=== PATIENT | female | born 1935 | race Caucasian/White ===

== ENCOUNTER 2019-08-09 05:02 | Inpatient (IN) | payer MEDICARE, OTHER, SELFPAY ==
[2019-08-09] VITALS (12 sets, daily range): BP systolic 96–163; BP diastolic 42–71; PULSE 75–94; RESP 14–18; TEMP 36.6–37; O2SAT 92–97; BMI 24.7
--- NOTE | 2019-08-09 05:17 | CTR_ITS ---
PROCEDURE INFORMATION: Exam: CT Abdomen And Pelvis With Contrast Exam date and time: 08/09/2019 5:29 AM Age: 84 years old Clinical indication: Abdominal pain; Localized; Patient HX: Lower abd pain. History of crohn's TECHNIQUE: Imaging protocol: Computed tomography of the abdomen and pelvis with intravenous contrast. Total DLP: 608.52 mGy-cm Radiation optimization: All CT scans at this facility use at least one of these dose optimization techniques: automated exposure control; mA and/or kV adjustment per patient size (includes targeted exams where dose is matched to clinical indication); or iterative reconstruction. Contrast material: VISI 320; Contrast volume: 95 ml; Contrast route: 20G RAC; COMPARISON: US gall bladder [id number] 08/31/2018 8:24 AM FINDINGS: Liver: No mass. Gallbladder and bile ducts: Stones noted in the gallbladder. Pancreas: No ductal dilation. Spleen: No splenomegaly. Adrenals: No mass. Kidneys and ureters: No hydronephrosis. Stomach and bowel: Dilated fecalized loops of distal ileum measuring up to 3 cm. There is mild adjacent small bowel edema in the right upper quadrant. There are multiple areas of relatively decreased caliber distal small bowel loops. Findings may represent strictures with possible developing partial small bowel obstruction in the setting of known Crohn's disease. Colonic diverticulosis without findings of diverticulitis. Appendix: The appendix is not identified. Intraperitoneal space: No free air. No significant fluid collection. Vasculature: No abdominal aortic aneurysm. Lymph nodes: No enlarged lymph nodes. Bladder: Unremarkable as visualized. Reproductive: Unremarkable as visualized. Bones/joints: Unremarkable. No acute fracture. Soft tissues: Unremarkable. CT/CT abdomen pelvis w con* [id number] IMPRESSION: 1. Dilated fecalized loops of distal ileum measuring up to 3 cm. There are multiple areas of relatively decreased caliber distal small bowel loops. Findings may represent strictures with possible developing partial small bowel obstruction in the setting of known Crohn's disease. 2. Cholelithiasis. Radiation Dose CTDIVOL = (mGy): DLP = 608.52 (mGy-cm)
--- NOTE | 2019-08-09 05:18 | ECG_ITS ---
Measurements Intervals [place] Rate: 78 P: 78 [place]: 185 QRS: 30 QRSD: 84 T: -15 QT: 384 QTc: 440 SINUS RHYTHM LOW QRS VOLTAGE IN PRECORDIAL LEADS [QRS DEFLECTION < 1.0 mV IN CHEST LEADS] NONSPECIFIC T-WAVE ABNORMALITY Compared to ECG 03/09/2017 04:59:36 Low QRS voltage now present T-wave abnormality now present Myocardial infarct finding no longer present Electronically Signed On 08-09-2019 10:17:36 CDT by Octavia Taylor M.D. [email or web address]
--- NOTE | 2019-08-09 05:19 | ED_ITS ---
Documented by User: Hesham Kiran MD 08/09/19 18:36 HPI - Abdominal Pain General: Chief Complaint: Abdominal Pain Stated Complaint: abd pain/n Time Seen by Provider: 08/09/19 05:13 Source: patient Mode of arrival: ambulatory Limitations: no limitations History of Present Illness: HPI narrative: 84-year-old female states she woke up after 3 hours ago with epigastric abdominal pain along with vomiting. She states that she took a Tums and pain is improved since then and pain is currently a 2 out of 10. She stated its worst was an 8 out of 10. She denies any radiation of her pain. MD elicited complaint: abdominal pain Onset (ago): hour(s) Location: Epigastric Severity: moderate Quality: sharp Radiation: none Exacerbating factors: nothing Relieving factors: nothing Associated Symptoms: Reports nausea and vomiting; Denies chills, diarrhea, dysuria and fever(s) Review of Systems Const: Denies: fever, chills, body aches or change in appetite Eyes: Denies: blurry vision or eye discomfort ENMT: Denies: throat pain or dental pain Card: Denies: chest pain Resp: Denies: shortness of breath GI: Reports: abdominal pain, nausea and vomiting; Denies: diarrhea : Denies: painful urination Musc: Denies: neck pain or back pain Skin/Breast: Denies: rash Neuro: Denies: headache Psych: Denies: depression Zeke/Lymph: Denies: easy bruising All/Imm: Denies: hives PFSH ED PFSH: Surgical History History of appendectomy Social History Smoking and tobacco status: former smoker Physical Exam Const: COMMON NORMALS: no apparent distress, oriented x3 and healthy appearing HENMT: COMMON NORMALS: normocephalic and head/scalp atraumatic HEAD & SCALP: normocephalic and atraumatic Eye: COMMON NORMALS: PERRL and EOMs intact bilaterally PUPIL: Yes PERRL Neck/C-Spine: COMMON NORMALS: full ROM and supple Chest: COMMONS NORMALS: inspection of chest normal and palpation of chest normal Resp: COMMON NORMALS: normal respiratory effort, no retractions, no use of accessory muscles and clear to auscultation bilaterally AUSCULTATION: clear to auscultation bilaterally Cardio: COMMON NORMALS: regular rate, regular rhythm and no murmurs RATE: regular rate RHYTHM: regular rhythm GI: COMMON NORMALS: normal to inspection, nondistended, normoactive bowel sounds, soft to palpation, non-tender and no masses PALPATION: Yes soft Extremity: COMMON NORMALS: normal to inspection and full ROM Neuro: COMMON NORMALS: oriented x3, moves all extremities and no focal motor deficits Psych: COMMON NORMALS: mental status grossly normal, thought process normal and cooperative THOUGHT PROCESS: normal thought process Skin: COMMON NORMALS: no rashes or lesions noted and no wounds GENERAL SKIN EXAM: no rashes or lesions noted Course Vital Signs: Vital signs: Vital Signs Temperature 98.1 F 08/09/19 15:29 Pulse Rate 85 08/09/19 15:29 Respiratory Rate 16 08/09/19 15:29 Blood Pressure 103/58 08/09/19 15:29 Pulse Oximetry 92 08/09/19 15:29 MDM - Abdominal Pain MDM Narrative: Medical decision making narrative: Patient presents with abdominal pain along with nausea and vomiting. Her symptoms are improving. Patient is pending CT scan of her abdomen along with lab work. Exam at arrival is benign. Patient's care turned over to Dr. Aleman. Lab Data: Labs: Lab Results 08/09/19 08/09/19 08/09/19 Range/Units 05:38 05:38 05:38 WBC 12.8 H (4.0-10.0) 10^3/ uL RBC 3.77 L (4.1-5.3) 10^6/u L Hgb 12.1 (11.5-15.3) g/dL Hct 38.9 (37.0-47.0) % MCV 103.2 H (81-99) fL MCH 32.1 (28.0-34.0) pg MCHC 31.1 (30.0-36.0) g/dL RDW 14.6 (12.1-15.1) % Plt Count 267 (130-400) 10^3/c mm MPV 9.5 (7.4-10.4) fL Neut % (Auto) 92.1 % Lymph % (Auto) 3.8 % [place] % (Auto) 3.1 % Eos % (Auto) 0.3 % Baso % (Auto) 0.2 % Neut # (Auto) 11.8 H (1.8-7.7) 10^3/u L Lymph # (Auto) 0.5 L (0.8-4.8) 10^3/u L [place] # (Auto) 0.4 (0.2-0.9) 10^3/u L Eos # (Auto) 0.0 (0.0-0.8) 10^3/u L Baso # (Auto) 0.0 (0.0-0.1) 10^3/u L Nucleated RBC % (a uto) 0 % Nucleated RBCs # 0.0 /100WBC Sodium 138 (136-145) mmol/L Potassium 3.8 (3.5-5.1) mmol/L Chloride 100 (98-107) mmol/L Carbon Dioxide 24 (22-29) mmol/L Anion Gap 17.8 (5-19) BUN 25 H (8-23) mg/dL Creatinine 1.0 H (0.5-0.9) mg/dL Glucose 118 H (65-115) mg/dL Calculated Osmolal ity 284 L (285-295) mOsm/k g Lactate (0.5-2.2) mmol/L Calcium 11.0 H (8.5-10.5) mg/dL Total Bilirubin 0.4 (0.15-1.2) mg/dL AST 21 (0-32) U/L ALT 7 (0-33) U/L Alkaline Phosphata se 72 (35-105) IU/L Total Protein 7.0 (6.6-8.7) g/dL Albumin 4.3 (3.5-5.2) g/dL Globulin 2.7 (1.3-4.6) g/dL Lipase 42 (13-60) U/L TSH 7.93 H (0.27-4.20) uIU/ mL 08/09/19 Range/Units 07:10 WBC (4.0-10.0) 10^3/ uL RBC (4.1-5.3) 10^6/u L Hgb (11.5-15.3) g/dL Hct (37.0-47.0) % MCV (81-99) fL MCH (28.0-34.0) pg MCHC (30.0-36.0) g/dL RDW (12.1-15.1) % Plt Count (130-400) 10^3/c mm MPV (7.4-10.4) fL Neut % (Auto) % Lymph % (Auto) % [place] % (Auto) % Eos % (Auto) % Baso % (Auto) % Neut # (Auto) (1.8-7.7) 10^3/u L Lymph # (Auto) (0.8-4.8) 10^3/u L [place] # (Auto) (0.2-0.9) 10^3/u L Eos # (Auto) (0.0-0.8) 10^3/u L Baso # (Auto) (0.0-0.1) 10^3/u L Nucleated RBC % (a uto) % Nucleated RBCs # /100WBC Sodium (136-145) mmol/L Potassium (3.5-5.1) mmol/L Chloride (98-107) mmol/L Carbon Dioxide (22-29) mmol/L Anion Gap (5-19) BUN (8-23) mg/dL Creatinine (0.5-0.9) mg/dL Glucose (65-115) mg/dL Calculated Osmolal ity (285-295) mOsm/k g Lactate 2.4 H (0.5-2.2) mmol/L Calcium (8.5-10.5) mg/dL Total Bilirubin (0.15-1.2) mg/dL AST (0-32) U/L ALT (0-33) U/L Alkaline Phosphata se (35-105) IU/L Total Protein (6.6-8.7) g/dL Albumin (3.5-5.2) g/dL Globulin (1.3-4.6) g/dL Lipase (13-60) U/L TSH (0.27-4.20) uIU/ mL Discharge Plan Discharge Patient Disposition: Placed in Observation Admit Provider: Abhi Angelo Clinical Impression: Small bowel obstruction, Abdominal pain, Constipation, Crohn's disease Condition: Stable Referrals: Michael Stoddard Jr, MD [Primary Care Provider] - Discharge Date/Time: 08/09/19 08:24 Coding Level of Care Code ED Electrical And Radio Mechanic for Chg Fwd Exam Comprehensive Documented by User: Art Aleman DO 08/09/19 08:00 HPI - Abdominal Pain General: Chief Complaint: Abdominal Pain Stated Complaint: abd pain/n Time Seen by Provider: 08/09/19 05:13 PFSH ED PFSH: Surgical History History of appendectomy Social History Smoking and tobacco status: former smoker Course Vital Signs: Vital signs: Vital Signs Temperature 98.1 F 08/09/19 15:29 Pulse Rate 85 08/09/19 15:29 Respiratory Rate 16 08/09/19 15:29 Blood Pressure 103/58 08/09/19 15:29 Pulse Oximetry 92 08/09/19 15:29 MDM - Abdominal Pain MDM Narrative: Medical decision making narrative: Care assumed from Dr. Kiran at change of shift. CT shows fecal is of the terminal ileum and a question of early small bowel obstruction possibly due to Crohn's constrictions. Patient does not have an acute abdomen on exam no peritoneal signs we will go ahead and put her on observation. Attempt to relieve constipation observe closely for signs of advancing bowel disease keep and keep on clear liquids and IV fluids discussed with Dr. Thomason he will admit. Lab Data: Labs: Lab Results 08/09/19 08/09/19 08/09/19 Range/Units 05:38 05:38 05:38 WBC 12.8 H (4.0-10.0) 10^3/ uL RBC 3.77 L (4.1-5.3) 10^6/u L Hgb 12.1 (11.5-15.3) g/dL Hct 38.9 (37.0-47.0) % MCV 103.2 H (81-99) fL MCH 32.1 (28.0-34.0) pg MCHC 31.1 (30.0-36.0) g/dL RDW 14.6 (12.1-15.1) % Plt Count 267 (130-400) 10^3/c mm MPV 9.5 (7.4-10.4) fL Neut % (Auto) 92.1 % Lymph % (Auto) 3.8 % [place] % (Auto) 3.1 % Eos % (Auto) 0.3 % Baso % (Auto) 0.2 % Neut # (Auto) 11.8 H (1.8-7.7) 10^3/u L Lymph # (Auto) 0.5 L (0.8-4.8) 10^3/u L [place] # (Auto) 0.4 (0.2-0.9) 10^3/u L Eos # (Auto) 0.0 (0.0-0.8) 10^3/u L Baso # (Auto) 0.0 (0.0-0.1) 10^3/u L Nucleated RBC % (a uto) 0 % Nucleated RBCs # 0.0 /100WBC Sodium 138 (136-145) mmol/L Potassium 3.8 (3.5-5.1) mmol/L Chloride 100 (98-107) mmol/L Carbon Dioxide 24 (22-29) mmol/L Anion Gap 17.8 (5-19) BUN 25 H (8-23) mg/dL Creatinine 1.0 H (0.5-0.9) mg/dL Glucose 118 H (65-115) mg/dL Calculated Osmolal ity 284 L (285-295) mOsm/k g Lactate (0.5-2.2) mmol/L Calcium 11.0 H (8.5-10.5) mg/dL Total Bilirubin 0.4 (0.15-1.2) mg/dL AST 21 (0-32) U/L ALT 7 (0-33) U/L Alkaline Phosphata se 72 (35-105) IU/L Total Protein 7.0 (6.6-8.7) g/dL Albumin 4.3 (3.5-5.2) g/dL Globulin 2.7 (1.3-4.6) g/dL Lipase 42 (13-60) U/L TSH 7.93 H (0.27-4.20) uIU/ mL 08/09/19 Range/Units 07:10 WBC (4.0-10.0) 10^3/ uL RBC (4.1-5.3) 10^6/u L Hgb (11.5-15.3) g/dL Hct (37.0-47.0) % MCV (81-99) fL MCH (28.0-34.0) pg MCHC (30.0-36.0) g/dL RDW (12.1-15.1) % Plt Count (130-400) 10^3/c mm MPV (7.4-10.4) fL Neut % (Auto) % Lymph % (Auto) % [place] % (Auto) % Eos % (Auto) % Baso % (Auto) % Neut # (Auto) (1.8-7.7) 10^3/u L Lymph # (Auto) (0.8-4.8) 10^3/u L [place] # (Auto) (0.2-0.9) 10^3/u L Eos # (Auto) (0.0-0.8) 10^3/u L Baso # (Auto) (0.0-0.1) 10^3/u L Nucleated RBC % (a uto) % Nucleated RBCs # /100WBC Sodium (136-145) mmol/L Potassium (3.5-5.1) mmol/L Chloride (98-107) mmol/L Carbon Dioxide (22-29) mmol/L Anion Gap (5-19) BUN (8-23) mg/dL Creatinine (0.5-0.9) mg/dL Glucose (65-115) mg/dL Calculated Osmolal ity (285-295) mOsm/k g Lactate 2.4 H (0.5-2.2) mmol/L Calcium (8.5-10.5) mg/dL Total Bilirubin (0.15-1.2) mg/dL AST (0-32) U/L ALT (0-33) U/L Alkaline Phosphata se (35-105) IU/L Total Protein (6.6-8.7) g/dL Albumin (3.5-5.2) g/dL Globulin (1.3-4.6) g/dL Lipase (13-60) U/L TSH (0.27-4.20) uIU/ mL Discharge Plan Discharge Patient Disposition: Placed in Observation Admit Provider: Abhi Angelo Clinical Impression: Small bowel obstruction, Abdominal pain, Constipation, Crohn's disease Condition: Stable Referrals: Michael Stoddard Jr, MD [Primary Care Provider] - Discharge Date/Time: 08/09/19 08:24 Coding Level of Care Code ED Electrical And Radio Mechanic for Chg Fwd Exam Comprehensive
[2019-08-09] MEDS: sodium chloride 0.9% 1,000 ML 999 ML IV (05:39)
[2019-08-09] MEDS: morphine 4 mg/mL SDV 1 mL IVP (05:40)
[2019-08-09] MEDS: ondansetron 2 mg/ML SDV 2 mL 4 MG IVP (05:41)
[2019-08-09 05:44] LABS: Basophils % 0.2 %; Eosinophils % 0.3 %; Hematocrit 38.9 % (37.0-47.0); Hemoglobin 12.1 g/dL (11.5-15.3); Lymphocytes # 0.5 10^3/uL (0.8-4.8); Lymphocytes % 3.8 %; Mean Corpuscular HGB Conc 31.1 g/dL (30.0-36.0); Mean Corpuscular Hemoglobin 32.1 pg (28.0-34.0); Mean Corpuscular Volume 103.2 fL (81-99); Mean Platelet Volume 9.5 fL (7.4-10.4); Monocytes # 0.4 10^3/uL (0.2-0.9); Monocytes % 3.1 %; Neutrophils # 11.8 10^3/uL (1.8-7.7); Neutrophils % 92.1 %; Nucleated Red Blood Cells % 0 %; Platelet Count 267 10^3/cmm (130-400); Red Blood Count 3.77 10^6/uL (4.1-5.3); Red Cell Distribution Width 14.6 % (12.1-15.1); White Blood Count 12.8 10^3/uL (4.0-10.0)
--- NOTE | 2019-08-09 05:46 | PC.NURSE ---
Patient states she woke up at 0200 tonight with centrally located abdominal pain located around the umbilicus. Patient states she took an antacid at home but that she vomited it up. Patient states she has felt nauseated since she woke up.
[2019-08-09 06:03] LABS: Alanine Aminotransferase 7 U/L (0-33); Albumin Level 4.3 g/dL (3.5-5.2); Alkaline Phosphatase 72 IU/L (35-105); Anion Gap 17.8 (5-19); Aspartate Amino Transferase 21 U/L (0-32); Blood Urea Nitrogen 25 mg/dL (8-23); Carbon Dioxide 24 mmol/L (22-29); Chloride 100 mmol/L (98-107); Globulin 2.7 g/dL (1.3-4.6); Glucose 118 mg/dL (65-115); Lipase 42 U/L (13-60); Osmolality Calculated 284 mOsm/kg (285-295); Potassium 3.8 mmol/L (3.5-5.1); Sodium 138 mmol/L (136-145); Total Bilirubin 0.4 mg/dL (0.15-1.2)
--- NOTE | 2019-08-09 06:11 | PC.NURSE ---
patient placed on 2 liters O2 to maintain 91 oxygenation on pulse ox.
[2019-08-09] MEDS: iodixanol 320 mg/mL 100mL Btl IV (06:37)
[2019-08-09 07:35] LABS: Lactate (Lactic Acid level) 2.4 mmol/L (0.5-2.2)
[2019-08-09] MEDS: D5-NS 0.45% + KCL 20 mEq 20 MEQ/1,000 ML BAG 75 MEQ IV ×2 (09:31→21:45)
--- NOTE | 2019-08-09 09:47 | PC.CHAP ---
Pastoral Care Encounter/Spiritual Assessment Type of Contact [] Declined patient svcs mgr visit [] Patient/Family/Request visit [] Outpatient visit [] Follow-up visit [] Physician referral [] Code/Alert [x] Routine visit [] Staff referral [] Actively dying [] Patient sleeping [] Family support [] [] Out of room [] Palliative care [] [] Receiving care in room [] Pre-surgical visit [] Trauma [] Long length of stay [] ICU visit [] Other: Relational/Emotional Strength [x] Patient feels connected with others/family/visitors/staff [] Distress [] Loneliness/isolation [] Abandonment Spirituality of Patient [x] Person of Shaunna [x] Attends Yazidi of their [place]un[place] [x] Believes in Prayer [x] Reads Bible or Shinto materials [] There are Spiritual issues to be addressed Irrigation Equipment Remover Interventions [x] Prayer [x] Active listening [x] Non-anxious presence [x] Spiritual/emotional support [] Crisis/trauma care [x] Spiritual counseling [] Bereavement support [] Provided bereavement packet [] Provided Bible/devotional materials [] Provided toy/stuffed animal, coloring book to patient or family member [] Provided Communion [] Anointing/[place] [] Salvation [] Completed spiritual assessment [] Other: Impact on Illness or Injury [] Angry [] Fearful [] Anxious [] Often cries [] Exhaustion [] Unable to work [] Unable to attend druze [] Unable to walk/stand [] Unable to read [] Unable to drive [] Unable to eat/drink [] Unable to sleep [] Unable to be with family [] Patient intubated [x] Other: n/a Summary Time spent with patient 10 minutes
--- NOTE | 2019-08-09 09:56 | PM.HP ---
Providers/Chief Complaint Admitting Physician: Abhi Angelo Primary Care Provider: Michael Stoddard Jr, MD Chief Complaint: OBSTIPATION History of Present Illness Letitia Singh is a 84 year old female with past medical history of Crohn's disease, and arthritis who presented to emergency room with complaints of abdominal pain and 2 episodes of vomiting. The pain started last night. Moderate in intensity, crampy, constant. She had a 1 bowel movement after the onset of the pain and felt a little better. She vomited twice. Mostly fluids. She also took Tums tablet which was in the emesis as well when she vomited. Currently she feels better. She denies any similar episodes in the past. Her Crohn's disease is well controlled. She denies any blood in the stool or black stools. She occasionally has diarrhea. She does not take any specific treatments for the Crohn's disease according to her. She has history of appendectomy in the past. She did not have any surgeries for Crohn's disease. CT of the abdomen in the emergency room revealed constipation and possible partial small bowel obstruction. The radiologist also described possible strictures which could be secondary to complications of Crohn's disease. The patient denies fevers or chills. The patient denies history of diabetes, heart disease. The patient denies any current tobacco alcohol and substance abuse. The patient reports hydrochlorothiazide allergy. Family history is noncontributory. Review of Systems General: Reports: 10 or more systems reviewed and unremarkable except in HPI and below Medications/Allergies Allergies Allergy/AdvReac Type Severity Reaction Status Date / Time hydrochlorothiazide Allergy Unknown Verified 08/09/19 05:19 Additional Medication Information Additional Medication Information: Please see home medication list when it is complete. The patient does not remember the names of her medications. We will need to obtain the list. PFSH Acute PFSH: Surgical History History of appendectomy Social History Smoking and tobacco status: former smoker Female Reproductive History: : 1 Vitals/I&O/Wt Last Vital Signs Temp 98.2 F 08/09/19 08:30 Pulse 83 08/09/19 08:30 Resp 16 08/09/19 08:48 BP 129/69 08/09/19 08:30 Pulse Ox 92 08/09/19 08:30 08/08/19 08/09/19 08/09/19 22:59 06:59 14:59 Intake Total 1000 / 1000 Balance 1000 / 1000 Weight last 48 hrs Weight 61.235 kg Data : 08/09/19 05:38 08/09/19 05:38 Other Labs: Laboratory Results WBC 12.8 10^3/uL (4.0-10.0) H 08/09/19 05:38 RBC 3.77 10^6/uL (4.1-5.3) L 08/09/19 05:38 Hgb 12.1 g/dL (11.5-15.3) 08/09/19 05:38 Hct 38.9 % (37.0-47.0) 08/09/19 05:38 MCV 103.2 fL (81-99) H 08/09/19 05:38 MCH 32.1 pg (28.0-34.0) 08/09/19 05:38 MCHC 31.1 g/dL (30.0-36.0) 08/09/19 05:38 RDW 14.6 % (12.1-15.1) 08/09/19 05:38 Plt Count 267 10^3/cmm (130-400) 08/09/19 05:38 MPV 9.5 fL (7.4-10.4) 08/09/19 05:38 Neut % (Auto) 92.1 % 08/09/19 05:38 Lymph % (Auto) 3.8 % 08/09/19 05:38 [place] % (Auto) 3.1 % 08/09/19 05:38 Eos % (Auto) 0.3 % 08/09/19 05:38 Baso % (Auto) 0.2 % 08/09/19 05:38 Neut # (Auto) 11.8 10^3/uL (1.8-7.7) H 08/09/19 05:38 Lymph # (Auto) 0.5 10^3/uL (0.8-4.8) L 08/09/19 05:38 [place] # (Auto) 0.4 10^3/uL (0.2-0.9) 08/09/19 05:38 Eos # (Auto) 0.0 10^3/uL (0.0-0.8) 08/09/19 05:38 Baso # (Auto) 0.0 10^3/uL (0.0-0.1) 08/09/19 05:38 Nucleated RBC % (auto) 0 % 08/09/19 05:38 Nucleated RBCs # 0.0 /100WBC 08/09/19 05:38 Sodium 138 mmol/L (136-145) 08/09/19 05:38 Potassium 3.8 mmol/L (3.5-5.1) 08/09/19 05:38 Chloride 100 mmol/L (98-107) 08/09/19 05:38 Carbon Dioxide 24 mmol/L (22-29) 08/09/19 05:38 Anion Gap 17.8 (5-19) 08/09/19 05:38 BUN 25 mg/dL (8-23) H 08/09/19 05:38 Creatinine 1.0 mg/dL (0.5-0.9) H 08/09/19 05:38 Glucose 118 mg/dL (65-115) H 08/09/19 05:38 Calculated Osmolality 284 mOsm/kg (285-295) L 08/09/19 05:38 Lactate 2.4 mmol/L (0.5-2.2) H 08/09/19 07:10 Calcium 11.0 mg/dL (8.5-10.5) H 08/09/19 05:38 Total Bilirubin 0.4 mg/dL (0.15-1.2) 08/09/19 05:38 AST 21 U/L (0-32) 08/09/19 05:38 ALT 7 U/L (0-33) 08/09/19 05:38 Alkaline Phosphatase 72 IU/L (35-105) 08/09/19 05:38 Total Protein 7.0 g/dL (6.6-8.7) 08/09/19 05:38 Albumin 4.3 g/dL (3.5-5.2) 08/09/19 05:38 Globulin 2.7 g/dL (1.3-4.6) 08/09/19 05:38 Lipase 42 U/L (13-60) 08/09/19 05:38 Impressions Abdomen/Pelvis CT 08/09/19 05:17 IMPRESSION: 1. Dilated fecalized loops of distal ileum measuring up to 3 cm. There are multiple areas of relatively decreased caliber distal small bowel loops. Findings may represent strictures with possible developing partial small bowel obstruction in the setting of known Crohn's disease. 2. Cholelithiasis. Radiation Dose CTDIVOL = (mGy): DLP = 608.52 (mGy-cm) EKG 1: I personally reviewed and interpreted this EKG as follows: My Interpretation: Nonspecific T wave abnormalities. Sinus rhythm. No acute ischemic changes. A&P Additional A&P Information Possible partial small bowel obstruction probably secondary to intestinal strictures secondary to previous history of Crohn's disease. She will be on clear liquid diet. She will receive IV fluids and pain medications as needed. We will also use Zofran and Reglan for nausea. Will encourage ambulation. Will monitor and replace her electrolytes. I expect that her condition will improve soon. However if there is no significant improvement will consider surgical consultation. Mild acute kidney injury secondary to dehydration secondary to #1. We will hydrate her and monitor her renal function. Will consider additional testing if her renal function worsens. Hypercalcemia. This could be secondary to dehydration. I will need also review her medication list to rule out medication induced hypercalcemia. Mild elevation of white blood cells. There is no evidence of infection at this time. This could be stress-induced or dehydration induced elevation of white blood cells. Will recheck CBC in the morning. DVT prophylaxis. Lovenox. CODE STATUS. The patient wants to be full code. Plan of care was discussed with the patient. She verbalized understanding and agreement. Attestations Medical Necessity Statement*: Observation Coding Level of Care Code Acute Linking Machine Operator for Familia Mcdonald
[2019-08-09 10:31] LABS: Thyroid Stimulating Hormone 7.93 uIU/mL (0.27-4.20)
[2019-08-09] MEDS: enoxaparin 40 mg/0.4 mL Syringe SUBCUT (10:39)
[2019-08-09] MEDS: docusate sodium 100 mg Capsule PO (17:40)
[2019-08-10] VITALS: BP 128/64; PULSE 64; RESP 18; TEMP 36.6; O2SAT 95
[2019-08-10 04:00] VITALS: BP 124/78; PULSE 74; RESP 18; TEMP 36.8; O2SAT 95
[2019-08-10 05:26] LABS: Basophils % 0.2 %; Eosinophils # 0.1 10^3/uL (0.0-0.8); Eosinophils % 1.4 %; Hematocrit 31.9 % (37.0-47.0); Hemoglobin 9.8 g/dL (11.5-15.3); Lymphocytes # 0.7 10^3/uL (0.8-4.8); Mean Corpuscular HGB Conc 30.7 g/dL (30.0-36.0); Mean Corpuscular Hemoglobin 32.2 pg (28.0-34.0); Mean Corpuscular Volume 104.9 fL (81-99); Mean Platelet Volume 9.7 fL (7.4-10.4); Monocytes # 0.4 10^3/uL (0.2-0.9); Monocytes % 7.1 %; Neutrophils % 79.8 %; Nucleated Red Blood Cells % 0 %; Platelet Count 200 10^3/cmm (130-400); Red Blood Count 3.04 10^6/uL (4.1-5.3); Red Cell Distribution Width 14.6 % (12.1-15.1); White Blood Count 6.2 10^3/uL (4.0-10.0)
[2019-08-10 06:05] LABS: Alanine Aminotransferase < 5 U/L (0-33); Albumin Level 3.2 g/dL (3.5-5.2); Alkaline Phosphatase 59 IU/L (35-105); Anion Gap 12.4 (5-19); Aspartate Amino Transferase 13 U/L (0-32); Blood Urea Nitrogen 12 mg/dL (8-23); Calcium 8.8 mg/dL (8.5-10.5); Carbon Dioxide 25 mmol/L (22-29); Chloride 106 mmol/L (98-107); Globulin 2.2 g/dL (1.3-4.6); Glucose 108 mg/dL (65-115); Osmolality Calculated 285 mOsm/kg (285-295); Potassium 4.4 mmol/L (3.5-5.1); Sodium 139 mmol/L (136-145); Total Bilirubin 0.3 mg/dL (0.15-1.2); Total Protein 5.4 g/dL (6.6-8.7)
[2019-08-10 06:06] LABS: Magnesium 1.9 mg/dL (1.7-2.3); Phosphorus 2.7 mg/dL (2.5-4.5)
[2019-08-10 07:43] VITALS: BP 124/57; PULSE 71; RESP 18; TEMP 36.9; O2SAT 93
[2019-08-10] MEDS: enoxaparin 40 mg/0.4 mL Syringe SUBCUT (09:34)
[2019-08-10] MEDS: docusate sodium 100 mg Capsule PO ×2 (09:35→17:09)
--- NOTE | 2019-08-10 09:46 | PC.CHAP ---
Pastoral Care Encounter/Spiritual Assessment Type of Contact [] Declined employer relations representative visit [] Patient/Family/Request visit [] Outpatient visit [] Follow-up visit [] Physician referral [] Code/Alert [x] Routine visit [] Staff referral [] Actively dying [] Patient sleeping [] Family support [] [] Out of room [] Palliative care [] [] Receiving care in room [] Pre-surgical visit [] Trauma [] Long length of stay [] ICU visit [] Other: Relational/Emotional Strength [] Patient feels connected with others/family/visitors/staff [] Distress [] Loneliness/isolation [] Abandonment Spirituality of Patient [] Person of Shaunna [] Attends Hoahaoism of their [place] [x] Believes in Prayer [] Reads Bible or Mosque materials [] There are Spiritual issues to be addressed Sap Integration Architect Interventions [x] Prayer [] Active listening [] Non-anxious presence [] Spiritual/emotional support [] Crisis/trauma care [] Spiritual counseling [] Bereavement support [] Provided bereavement packet [] Provided Bible/devotional materials [] Provided toy/stuffed animal, coloring book to patient or family member [] Provided Communion [] Anointing/[place] [] Salvation [x] Completed spiritual assessment [] Other: Impact on Illness or Injury [] Angry [] Fearful [] Anxious [] Often cries [] Exhaustion [] Unable to work [] Unable to attend orthodox [] Unable to walk/stand [] Unable to read [] Unable to drive [] Unable to eat/drink [] Unable to sleep [] Unable to be with family [] Patient intubated [] Other: Summary Patient trying to rest. Suffers from crohn's disease, but hasnt had blockage before. Patient received some relief this morning. Time spent with patient 15 min
[2019-08-10 11:28] VITALS: BP 145/60; PULSE 69; RESP 18; TEMP 37; O2SAT 94
[2019-08-10] MEDS: D5-NS 0.45% + KCL 20 mEq 20 MEQ/1,000 ML BAG 75 MEQ IV (12:01)
[2019-08-10] MEDS: acetaminophen 325 mg Tablet 650 MG PO (14:23)
[2019-08-10 15:51] VITALS: BP 152/79; PULSE 62; RESP 16; TEMP 36.8; O2SAT 94
--- NOTE | 2019-08-10 17:24 | P.PN_ITS ---
Subjective Subjective: Interval history: The patient reports feeling a little better. She was able to tolerate clear liquid diet. There was no bowel movement. Abdominal pain and distention are still present. No fever or chills. She denies any chest pain, shortness of breath, cough, palpitations. Vitals/I&O/Wt Last Vital Signs Temp 98.3 F 08/10/19 15:51 Pulse 62 08/10/19 15:51 Resp 16 08/10/19 15:51 BP 152/79 08/10/19 15:51 Pulse Ox 94 08/10/19 15:51 08/10/19 08/10/19 08/10/19 06:59 14:59 22:59 Intake Total 1480 / 1480 240 / 1720 Output Total 350 / 350 Balance -350 / 807.5 1480 / 1480 240 / 1720 Weight last 48 hrs Weight 61.235 kg Physical Exam Narrative: EXAM NARRATIVE: The patient is awake alert and oriented. No acute distress. Mood and affect are appropriate. Skin warm and dry. Moist mucous membranes. Eyes PERRLA, extra muscle intact. Neck supple, no JVD Lungs clear bilaterally. No respiratory distress Heart S1, S2, regular Abdomen soft, distended, nontender, bowel sounds are present Extremities trace edema no cyanosis no calf tenderness bilaterally Neuro examination is nonfocal. Data : 08/10/19 05:05 08/10/19 05:05 A&P Additional A&P Information Partial small bowel obstruction probably secondary to intestinal strictures secondary to previous history of Crohn's disease. Probably improving. Advance the diet as tolerated. Continue IV fluids and pain medications as needed. We will also use Zofran and Reglan for nausea. Will continue encouraging ambulation. Will monitor and replace her electrolytes. I hope we will be able to discharge her tomorrow. She will need to continue follow-up with her outpatient GI specialist. I reminded her and her daughter how important it is to have follow-up checkups including colonoscopies which she did not have for long time. She verbalized understanding and agreement. Mild acute kidney injury secondary to dehydration secondary to #1. We will hydrate her and monitor her renal function. Will consider additional testing if her renal function worsens. Hypercalcemia. This could be secondary to dehydration. Resolved. Continue m onitoring. Mild elevation of white blood cells. Resolved. Anemia. Hemodynamically she is stable. Drop of hemoglobin probably related to hydration. DVT prophylaxis. Lovenox. CODE STATUS. The patient wants to be full code. Plan of care was discussed with the patient as well as with her daughter over the phone. They verbalized understanding and agreement. Attestations Medical Necessity Statement*: The patient will require another night in the hospital. She meets criteria for inpatient hospitalization. Coding Level of Care Code Acute Disability Insurance Claim Examiner for Familia Mcdonald
[2019-08-10 20:00] VITALS: BP 124/76; PULSE 65; RESP 18; TEMP 36.7; O2SAT 94
[2019-08-11] VITALS: BP 124/76; PULSE 68; RESP 18; TEMP 36.8; O2SAT 96
[2019-08-11] MEDS: D5-NS 0.45% + KCL 20 mEq 20 MEQ/1,000 ML BAG 75 MEQ IV (00:42)
[2019-08-11 04:00] VITALS: BP 133/63; PULSE 61; RESP 18; TEMP 36.8; O2SAT 95
[2019-08-11 05:40] LABS: Basophils % 0.2 %; Eosinophils # 0.3 10^3/uL (0.0-0.8); Hematocrit 34.5 % (37.0-47.0); Hemoglobin 10.3 g/dL (11.5-15.3); Lymphocytes # 0.6 10^3/uL (0.8-4.8); Lymphocytes % 11.5 %; Mean Corpuscular HGB Conc 29.9 g/dL (30.0-36.0); Mean Corpuscular Hemoglobin 31.3 pg (28.0-34.0); Mean Corpuscular Volume 104.9 fL (81-99); Mean Platelet Volume 9.6 fL (7.4-10.4); Monocytes # 0.4 10^3/uL (0.2-0.9); Monocytes % 7.6 %; Neutrophils # 3.6 10^3/uL (1.8-7.7); Neutrophils % 74.1 %; Nucleated Red Blood Cells % 0 %; Platelet Count 225 10^3/cmm (130-400); Red Blood Count 3.29 10^6/uL (4.1-5.3); Red Cell Distribution Width 14.3 % (12.1-15.1); White Blood Count 4.9 10^3/uL (4.0-10.0)
[2019-08-11 05:59] LABS: Magnesium 1.9 mg/dL (1.7-2.3)
[2019-08-11 06:00] LABS: Albumin Level 3.1 g/dL (3.5-5.2); Anion Gap 10.5 (5-19); Blood Urea Nitrogen 6 mg/dL (8-23); Calcium 8.8 mg/dL (8.5-10.5); Carbon Dioxide 26 mmol/L (22-29); Chloride 108 mmol/L (98-107); Glucose 103 mg/dL (65-115); Phosphorus 2.6 mg/dL (2.5-4.5); Potassium 4.5 mmol/L (3.5-5.1); Sodium 140 mmol/L (136-145)
[2019-08-11 07:30] VITALS: BP 168/76; PULSE 72; RESP 18; TEMP 37; O2SAT 93
[2019-08-11] MEDS: docusate sodium 100 mg Capsule PO (08:03)
[2019-08-11] MEDS: enoxaparin 40 mg/0.4 mL Syringe SUBCUT (09:01)
--- NOTE | 2019-08-11 11:01 | PM.DCS ---
Discharge Providers Date of Admission: 08/10/19 13:00 Date of Discharge: August 11, 2019 Attending Provider at Admission: Abhi Angelo Attending Provider at Discharge: Abhi Angelo Primary Care Provider: Michael Stoddard Jr, MD Reason for Visit Reason for Visit: Reason For Visit: OBSTIPATION Hospital Course Discharge Summary: Partial small bowel obstruction probably secondary to intestinal strictures secondary to previous history of Crohn's disease. Resolved. Advance the diet is tolerated. She will need to continue follow-up with her outpatient GI specialist. Mild acute kidney injury secondary to dehydration secondary to #1. Resolved. Hypercalcemia. This could be secondary to dehydration. Resolved. Continue monitoring. Mild elevation of white blood cells. Resolved. Anemia. Hemodynamically she is stable. Drop of hemoglobin probably related to hydration. DVT prophylaxis. Received Lovenox. Currently the patient is doing very well. She is eager to go home. Denies rectal blood, abdominal pain or distention, nausea or vomiting, fevers or chills. He had a bowel movement this morning. Physical Exam Narrative: EXAM NARRATIVE: The patient is awake alert and oriented. No acute distress. Mood and affect are appropriate. Skin warm and dry. Moist mucous membranes. Eyes PERRLA, extra muscle intact. Neck supple, no JVD Lungs clear bilaterally. No respiratory distress Heart S1, S2, regular Abdomen soft, distended, nontender, bowel sounds are present Extremities trace edema no cyanosis no calf tenderness bilaterally Neuro examination is nonfocal. Discharge Data Data Completed and Pending: Completed Studies During Hospitalization Category Date Time Status CT abdomen pelvis w con* [id number] Urge nt Cat Scan 08/09/19 05:17 Completed Pending at discharge Category Date Time Status Free T4 Free Thyr oxine Routine Lab 08/11/19 10:34 Ordered Labs from last 24 hours 08/11/19 08/11/19 08/11/19 05:10 05:10 05:10 WBC 4.9 RBC 3.29 L Hgb 10.3 L Hct 34.5 L MCV 104.9 H MCH 31.3 MCHC 29.9 L RDW 14.3 Plt Count 225 MPV 9.6 Neut % (Auto) 74.1 Lymph % (Auto) 11.5 Mcleod % (Auto) 7.6 Eos % (Auto) 6.0 Baso % (Auto) 0.2 Neut # (Auto) 3.6 Lymph # (Auto) 0.6 L Mcleod # (Auto) 0.4 Eos # (Auto) 0.3 Baso # (Auto) 0.0 Nucleated RBC % (a uto) 0 Nucleated RBCs # 0.0 Sodium 140 Potassium 4.5 Chloride 108 H Carbon Dioxide 26 Anion Gap 10.5 BUN 6 L Creatinine 0.7 Glucose 103 Calcium 8.8 Phosphorus 2.6 Magnesium 1.9 Albumin 3.1 L Vitals: Last Vital Signs Temp 98.6 F 08/11/19 07:30 Pulse 72 08/11/19 07:30 Resp 18 08/11/19 07:30 BP 168/76 08/11/19 07:30 Pulse Ox 93 08/11/19 07:30 Discharge Plan Discharge Patient Disposition: Home, Self-Care Condition: Stable Prescriptions: New docusate sodium 100 mg Capsule 100 mg PO BID Qty: 30 RF: 0 Continued losartan 50 mg Tablet 50 mg PO DAILY RF: 0 sulfasalazine 500 mg Tablet 1,000 mg PO BID RF: 0 Vitamin B-12 1,000 mcg Tablet 1,000 mcg PO DAILY RF: 0 clopidogrel 75 mg Tablet 75 mg PO DAILY RF: 0 methotrexate sodium 2.5 mg Tablet See Rx Instructions .ROUTE .COMPLEX RF: 0 amlodipine 10 mg Tablet 10 mg PO DAILY RF: 0 simvastatin 5 mg Tablet 5 mg PO QPM RF: 0 folic acid 1 mg Tablet 1 mg PO DAILY RF: 0 Discharge Orders: Discharge Order (Routine); Ordered 08/11/19 Ordered By: Abhi Angelo Referrals: Michael Stoddard Jr, MD [Primary Care Provider] - Discharge Diet: Advance as tolerated Discharge Activity: Increase activity as tolerated Activity Restrictions/Additional Instructions: Please return to emergency room if develop any new abdominal pain, constipation, abdominal distention, nausea or vomiting, fever or chills. You might have hypothyroidism. You might need thyroid hormone replacement. Please ask your primary care physician to review your blood test results and advise you regarding thyroid medication. See your primary care physician next week please. Also follow-up with your primary GI specialist in 1 or 2 weeks. Discharge Attestations Time Spent in Discharge Care*: less than 30 min Quality Metrics Clinical Quality Measures During this hospital stay, did patient experience: None Coding Level of Care Code Acute Radiographer Technologist for Familia Mcdonald
[2019-08-11 11:16] VITALS: BP 168/76; PULSE 72; RESP 18; TEMP 37; O2SAT 93
[2019-08-11 11:38] LABS: Free T4 Free Thyroxine 1.15 ng/dL (0.82-1.77)
[2019-08-11 11:42] VITALS: PULSE 70; RESP 18; TEMP 37.1; O2SAT 95
== END 2019-08-11 13:05 | disposition home or self-care (01) | DRG 389 ==
LOC: ER 07:00 → MEDSURG 07:56
PROVIDERS: Emergency Medicine; Admitting Provider Internal Medicine; Emergency Provider Family Medicine; Family Provider Family Medicine; PCP Family Medicine; Visit Provider Internal Medicine
DX: K56.600 Partial intestinal obstruction, unspecified as to cause (principal); N17.9 Acute kidney failure, unspecified; K50.90 Crohn's disease, unspecified, without complications; E83.52 Hypercalcemia; D64.9 Anemia, unspecified; E86.0 Dehydration; Z79.02 Long term (current) use of antithrombotics/antiplatelets; M19.90 Unspecified osteoarthritis, unspecified site; Z87.891 Personal history of nicotine dependence
CPT/HCPCS: 12345; 36415; 74177; 80053; 80069; 83605; 83690; 83735; 84100; 84439; 84443; 85025; 93005; 96372; 96374; 96375; 99283; 99284; G0378; J1650; J2270; J2405; J7030; Q9967

== ENCOUNTER 2020-01-01 11:09 | Emergency (ER) | payer MEDICARE, OTHER, SELFPAY ==
[2020-01-01 11:27] VITALS: BP 136/77; PULSE 95; RESP 17; TEMP 36.8; O2SAT 94; BMI 24.8
--- NOTE | 2020-01-01 13:38 | W.ED.NAVMDI ---
HPI - Nausea/Vomiting/Diarrhea General: Chief complaint: Nausea/Vomiting/Diarrhea Stated complaint: diarrhea Time Seen by Provider: 01/01/20 13:02 History of Present Illness: HPI Narrative: 84-year-old female comes in complaining of nausea with diarrhea for last 4 days she had a slight cough and rhinorrhea and sinus congestion as well cough is minimally productive consist mostly of the postnasal drainage she has a history of Crohn's she denied any hematochezia or bright red blood per rectum she is also had a lot of flulike myalgias the last several days. She states her breathing for the most part is been okay she has not been particularly short of breath. MD elicited complaint: nausea and diarrhea Onset (ago): day(s) Description of diarrhea: semi-solid Associated nausea: Yes Associated abdominal pain: Yes Location of pain: Diffuse Pain consistency: colicky Severity: moderate Quality: cramping Exacerbating factors: none Relieving factors: none Associated symtoms: Reports cough, fatigue, anorexia, malaise, nausea and weakness; Denies altered mental status, anxiety, bloating, change in vision, chest pain, diaphoresis, decreased urine output, dizziness, dysuria, epistaxis, fecal incontinence, fevers/chills, headache(s), myalgias, numbness, palpitations, rash, short of breath, syncope, tenesmus or tinnitus Review of Systems Const: Reports: fatigue and malaise; Denies: diaphoresis Eyes: Denies: change in vision ENMT: Reports: nasal congestion; Denies: tinnitus or epistaxis Card: Denies: chest pain, palpitations or syncope Resp: Reports: non-productive cough; Denies: dyspnea or productive cough GI: Reports: nausea; Denies: bloating or fecal incontinence : Denies: dysuria Skin/Breast: Denies: rash or pruritus Neuro: Denies: headache(s) or dizziness Psych: Denies: anxiety PFSH ED PFSH: Medical History (Updated 01/03/20 @ 07:59 by Art Aleman DO) Crohn's disease Surgical History History of appendectomy Social History Smoking and tobacco status: former smoker Physical Exam Const: COMMON NORMALS: no acute distress EXAM LIMITATIONS: no altered mental status GENERAL APPEARANCE: cooperative and comfortable ORIENTATION/CONSCIOUSNESS: Yes awake, Yes oriented to person, Yes oriented to place and Yes oriented to time HENMT: COMMON NORMALS: normocephalic, atraumatic, hearing grossly normal bilaterally, external ears normal, EAC's normal, TM's normal bilaterally, Normal nasal mucous membranes and turbinates present, moist oral mucous membranes and oropharynx normal HEAD & SCALP: normocephalic and atraumatic NOSE: Normal nasal mucous membranes and turbinates present EXTERNAL EAR: Yes external ears normal EXTERNAL AUDITORY CANAL: EAC's normal TYMPANIC MEMBRANE: TM's normal bilaterally Eye: COMMON NORMALS: Equal, round and reactive pupils present, EOMs intact bilaterally, conjunctivae normal and no scleral icterus CONJUNCTIVA: Yes conjunctivae normal PUPIL: Yes Equal, round and reactive pupils present Neck/C-Spine: COMMON NORMALS: full ROM, no lymphadenopathy, supple and no JVD Lymph: LYMPHATIC: no lymphadenopathy noted and no lymphedema noted Resp: COMMON NORMALS: normal respiratory effort, No retractions, No use of accessory muscles and clear to auscultation bilaterally AUSCULTATION: clear to auscultation bilaterally Cardio: COMMON NORMALS: no JVD, regular rate, regular rhythm and No murmurs present (Cardio) RATE: regular rate RHYTHM: regular rhythm GI: COMMON NORMALS: Soft to palpation and No hepatosplenomegaly present AUSCULTATION: Yes normoactive bowel sounds PALPATION: Yes Soft to palpation, No Tenderness to palpation present (GI), No Guarding due to palpation present (GI) and Yes No hepatosplenomegaly present Extremity: COMMON NORMALS: normal to inspection, capillary refill normal, no clubbing, cyanosis or edema, no calf tenderness and no pedal edema Neuro: SENSORIUM/ORIENTATION: Yes oriented to person, Yes oriented to place and Yes oriented to time Skin: COMMON NORMALS: no rashes or lesions noted GENERAL SKIN EXAM: no rashes or lesions noted Course Vital Signs: Vital signs: Vital Signs Temperature 98.3 F 01/01/20 11:27 Pulse Rate 70 01/01/20 16:39 Respiratory Rate 16 01/01/20 16:39 Blood Pressure 125/75 01/01/20 16:39 Pulse Oximetry 98 01/01/20 16:39 MDM - Nausea/Vomiting/Diarrhea MDM Narrative: Medical decision making narrative: Her sats are good her vitals are stable I think she can safely be discharged home we will have her follow-up with her primary care doctor tomorrow if she has any worsening problems pain or symptoms she should return immediately. Lab Data: Attestation: I reviewed the patient's lab results. Labs: Lab Results 01/01/20 01/01/20 01/01/20 Range/Units 01:46 13:35 13:35 WBC 7.7 (4.0-10.0) 10^3/ uL RBC 3.84 L (4.1-5.3) 10^6/u L Hgb 12.0 (11.5-15.3) g/dL Hct 39.6 (37.0-47.0) % MCV 103.1 H (81-99) fL MCH 31.3 (28.0-34.0) pg MCHC 30.3 (30.0-36.0) g/dL RDW 13.8 (12.1-15.1) % Plt Count 195 (130-400) 10^3/c mm MPV 9.7 (7.4-10.4) fL Neut % (Auto) 83.7 % Lymph % (Auto) 9.0 % Will % (Auto) 6.8 % Eos % (Auto) 0.0 % Baso % (Auto) 0.1 % Neut # (Auto) 6.40 (1.8-7.7) 10^3/u L Lymph # (Auto) 0.7 L (0.8-4.8) 10^3/u L Will # (Auto) 0.5 (0.2-0.9) 10^3/u L Eos # (Auto) 0.0 (0.0-0.8) 10^3/u L Baso # (Auto) 0.0 (0.0-0.1) 10^3/u L Nucleated RBC % (a uto) 0 % Nucleated RBCs # 0.0 /100WBC Fibrinogen (174-498) mg/dL D-Dimer (0-0.59) ug/mIFE U Sodium 133 L (136-145) mmol/L Potassium 3.6 (3.5-5.1) mmol/L Chloride 98 (98-107) mmol/L Carbon Dioxide 19 L (22-29) mmol/L Anion Gap 19.6 H (5-19) BUN 13 (8-23) mg/dL Creatinine 0.8 (0.5-0.9) mg/dL GFR Calculation Not Reportable Glucose 94 (65-115) mg/dL Calculated Osmolal ity 272 L (285-295) mOsm/k g Lactic Acid (0.5-2.2) mmol/L Calcium 8.5 (8.5-10.5) mg/dL Ferritin 255 H (15-150) ng/mL Total Bilirubin 0.3 (0.15-1.2) mg/dL AST 20 (0-32) U/L ALT < 5 (0-33) U/L Alkaline Phosphata se 73 (35-105) IU/L Lactate Dehydrogen ase 279 H (135-214) U/L C-Reactive Protein 27.3 H (0.0-4.9) mg/L Total Protein 7.5 (6.6-8.7) g/dL Albumin 3.9 (3.5-5.2) g/dL Globulin 3.6 (1.3-4.6) g/dL Procalcitonin 0.05 (0-0.5) ng/mL Urine Color Dark yellow (Yellow) Urine Appearance Sl cloudy A (CLEAR) Urine pH 5 (5-7) Ur Specific Gravit y 1.020 (1.005-1.030) Urine Protein Neg (Negative) Urine Glucose (UA) Norm (Normal) Urine Ketones 1+ H (Negative) Urine Blood Neg (Negative) Urine Nitrate Negative (Negative) Urine Bilirubin 1+ H (NEGATIVE) Urine Urobilinogen 1 H (Negative) mg/dL Ur Leukocyte Dalia ase Negative (Negative) Urine RBC None (0-2) /hpf Urine WBC 0-4 H (0-5) /hpf Ur Squamous Epith Cells 0-4 H (0-5) Amorphous Sediment Not Reportable Urine Bacteria Trace (NONE) Urine Mucus 3+ Nasal/Oral COVID-1 9 PCR Influenza Type A A g (Negative) Influenza Type B A g (Negative) 01/01/20 01/01/20 01/01/20 Range/Units 13:35 13:35 13:35 WBC (4.0-10.0) 10^3/ uL RBC (4.1-5.3) 10^6/u L Hgb (11.5-15.3) g/dL Hct (37.0-47.0) % MCV (81-99) fL MCH (28.0-34.0) pg MCHC (30.0-36.0) g/dL RDW (12.1-15.1) % Plt Count (130-400) 10^3/c mm MPV (7.4-10.4) fL Neut % (Auto) % Lymph % (Auto) % Will % (Auto) % Eos % (Auto) % Baso % (Auto) % Neut # (Auto) (1.8-7.7) 10^3/u L Lymph # (Auto) (0.8-4.8) 10^3/u L Will # (Auto) (0.2-0.9) 10^3/u L Eos # (Auto) (0.0-0.8) 10^3/u L Baso # (Auto) (0.0-0.1) 10^3/u L Nucleated RBC % (a uto) % Nucleated RBCs # /100WBC Fibrinogen 721 H (174-498) mg/dL D-Dimer 0.62 H (0-0.59) ug/mIFE U Sodium (136-145) mmol/L Potassium (3.5-5.1) mmol/L Chloride (98-107) mmol/L Carbon Dioxide (22-29) mmol/L Anion Gap (5-19) BUN (8-23) mg/dL Creatinine (0.5-0.9) mg/dL GFR Calculation Glucose (65-115) mg/dL Calculated Osmolal ity (285-295) mOsm/k g Lactic Acid 1.1 (0.5-2.2) mmol/L Calcium (8.5-10.5) mg/dL Ferritin (15-150) ng/mL Total Bilirubin (0.15-1.2) mg/dL AST (0-32) U/L ALT (0-33) U/L Alkaline Phosphata se (35-105) IU/L Lactate Dehydrogen ase (135-214) U/L C-Reactive Protein (0.0-4.9) mg/L Total Protein (6.6-8.7) g/dL Albumin (3.5-5.2) g/dL Globulin (1.3-4.6) g/dL Procalcitonin (0-0.5) ng/mL Urine Color (Yellow) Urine Appearance (CLEAR) Urine pH (5-7) Ur Specific Gravit y (1.005-1.030) Urine Protein (Negative) Urine Glucose (UA) (Normal) Urine Ketones (Negative) Urine Blood (Negative) Urine Nitrate (Negative) Urine Bilirubin (NEGATIVE) Urine Urobilinogen (Negative) mg/dL Ur Leukocyte Dalia ase (Negative) Urine RBC (0-2) /hpf Urine WBC (0-5) /hpf Ur Squamous Epith Cells (0-5) Amorphous Sediment Urine Bacteria (NONE) Urine Mucus Nasal/Oral COVID-1 9 PCR Positive Influenza Type A A g (Negative) Influenza Type B A g (Negative) 01/01/20 Range/Units 13:35 WBC (4.0-10.0) 10^3/ uL RBC (4.1-5.3) 10^6/u L Hgb (11.5-15.3) g/dL Hct (37.0-47.0) % MCV (81-99) fL MCH (28.0-34.0) pg MCHC (30.0-36.0) g/dL RDW (12.1-15.1) % Plt Count (130-400) 10^3/c mm MPV (7.4-10.4) fL Neut % (Auto) % Lymph % (Auto) % Will % (Auto) % Eos % (Auto) % Baso % (Auto) % Neut # (Auto) (1.8-7.7) 10^3/u L Lymph # (Auto) (0.8-4.8) 10^3/u L Will # (Auto) (0.2-0.9) 10^3/u L Eos # (Auto) (0.0-0.8) 10^3/u L Baso # (Auto) (0.0-0.1) 10^3/u L Nucleated RBC % (a uto) % Nucleated RBCs # /100WBC Fibrinogen (174-498) mg/dL D-Dimer (0-0.59) ug/mIFE U Sodium (136-145) mmol/L Potassium (3.5-5.1) mmol/L Chloride (98-107) mmol/L Carbon Dioxide (22-29) mmol/L Anion Gap (5-19) BUN (8-23) mg/dL Creatinine (0.5-0.9) mg/dL GFR Calculation Glucose (65-115) mg/dL Calculated Osmolal ity (285-295) mOsm/k g Lactic Acid (0.5-2.2) mmol/L Calcium (8.5-10.5) mg/dL Ferritin (15-150) ng/mL Total Bilirubin (0.15-1.2) mg/dL AST (0-32) U/L ALT (0-33) U/L Alkaline Phosphata se (35-105) IU/L Lactate Dehydrogen ase (135-214) U/L C-Reactive Protein (0.0-4.9) mg/L Total Protein (6.6-8.7) g/dL Albumin (3.5-5.2) g/dL Globulin (1.3-4.6) g/dL Procalcitonin (0-0.5) ng/mL Urine Color (Yellow) Urine Appearance (CLEAR) Urine pH (5-7) Ur Specific Gravit y (1.005-1.030) Urine Protein (Negative) Urine Glucose (UA) (Normal) Urine Ketones (Negative) Urine Blood (Negative) Urine Nitrate (Negative) Urine Bilirubin (NEGATIVE) Urine Urobilinogen (Negative) mg/dL Ur Leukocyte Dalia ase (Negative) Urine RBC (0-2) /hpf Urine WBC (0-5) /hpf Ur Squamous Epith Cells (0-5) Amorphous Sediment Urine Bacteria (NONE) Urine Mucus Nasal/Oral COVID-1 9 PCR Influenza Type A A g Negative (Negative) Influenza Type B A g Negative (Negative) Discharge Plan Discharge Patient Disposition: Home Clinical Impression: COVID-19 virus infection Condition: Stable Prescriptions: No Action triamcinolone acetonide 0.1 % Cream 1 applic TOPICAL BID RF: 0 losartan 50 mg Tablet 50 mg PO DAILY RF: 0 sulfasalazine 500 mg Tablet 1,000 mg PO BID RF: 0 cyanocobalamin (vitamin B-12) [Vitamin B-12] 1,000 mcg Tablet 1,000 mcg PO DAILY RF: 0 clopidogrel 75 mg Tablet 75 mg PO DAILY RF: 0 methotrexate sodium 2.5 mg Tablet See Rx Instructions .ROUTE .COMPLEX RF: 0 amlodipine 10 mg Tablet 10 mg PO DAILY RF: 0 simvastatin 5 mg Tablet 5 mg PO QPM RF: 0 folic acid 1 mg Tablet 1 mg PO DAILY RF: 0 docusate sodium 100 mg Capsule 100 mg PO BID Qty: 30 RF: 0 Discharge Orders: Discharge Order (Routine); Ordered 01/01/20 Ordered By: Art Aleman Referrals: Michael Stoddard Jr, MD [Primary Care Provider] - Discharge Diet: Usual diet Discharge Activity: Increase activity as tolerated Discharge Date/Time: 01/01/20 16:40 Coding Level of Care Code ED Weatherization And Housing Inspector for Familia Mcdonald
[2020-01-01 13:44] LABS: Basophils % 0.1 %; Hematocrit 39.6 % (37.0-47.0); Lymphocytes # 0.7 10^3/uL (0.8-4.8); Mean Corpuscular HGB Conc 30.3 g/dL (30.0-36.0); Mean Corpuscular Hemoglobin 31.3 pg (28.0-34.0); Mean Corpuscular Volume 103.1 fL (81-99); Mean Platelet Volume 9.7 fL (7.4-10.4); Monocytes # 0.5 10^3/uL (0.2-0.9); Monocytes % 6.8 %; Neutrophils % 83.7 %; Nucleated Red Blood Cells % 0 %; Platelet Count 195 10^3/cmm (130-400); Red Blood Count 3.84 10^6/uL (4.1-5.3); Red Cell Distribution Width 13.8 % (12.1-15.1); White Blood Count 7.7 10^3/uL (4.0-10.0)
[2020-01-01 14:03] LABS: Lactic Sepsis W/Reflex 1.1 mmol/L (0.5-2.2)
[2020-01-01 14:13] LABS: Procalcitonin 0.05 ng/mL (0-0.5)
[2020-01-01 14:14] LABS: Influenza A by IFA Negative (Negative)
[2020-01-01 14:15] LABS: Influenza B by IFA Negative (Negative)
[2020-01-01 14:23] LABS: D Dimer 0.62 ug/mIFEU (0-0.59)
[2020-01-01 14:25] LABS: Alanine Aminotransferase < 5 U/L (0-33); Albumin Level 3.9 g/dL (3.5-5.2); Alkaline Phosphatase 73 IU/L (35-105); Aspartate Amino Transferase 20 U/L (0-32); Blood Urea Nitrogen 13 mg/dL (8-23); C Reactive Protein 27.3 mg/L (0.0-4.9); Calcium 8.5 mg/dL (8.5-10.5); Carbon Dioxide 19 mmol/L (22-29); Chloride 98 mmol/L (98-107); Ferritin 255 ng/mL (15-150); Globulin 3.6 g/dL (1.3-4.6); Glucose 94 mg/dL (65-115); Osmolality Calculated 272 mOsm/kg (285-295); Sodium 133 mmol/L (136-145); Total Bilirubin 0.3 mg/dL (0.15-1.2); Total Protein 7.5 g/dL (6.6-8.7)
[2020-01-01 14:49] LABS: Anion Gap 19.6 (5-19); Lactate Dehydrogenase 279 U/L (135-214); Potassium 3.6 mmol/L (3.5-5.1)
[2020-01-01 14:51] LABS: Fibrinogen 721 mg/dL (174-498)
--- NOTE | 2020-01-01 15:02 | XRR_ITS ---
PROCEDURE INFORMATION: Exam: XR Chest, 1 View Exam date and time: 01/01/2020 3:42 PM Age: 84 years old Clinical indication: Cough and dyspnea; Additional info: Dyspnea/cough TECHNIQUE: Imaging protocol: XR of the chest Views: 1 view. COMPARISON: CR Ribs LEFT w PA Chest [id number] 03/09/2017 2:06 PM FINDINGS: Lungs: There is unchanged linear scarring in the right lung base. No consolidation. There is unchanged elevation of the right hemidiaphragm. There are unchanged scattered calcified granulomas. The pulmonary vascularity is within normal limits. Pleural space: Unremarkable. No pleural effusion. No pneumothorax. Heart/Mediastinum: There is cardiomegaly. Bones/joints: No acute abnormality. Old right clavicle fracture deformity is noted. XR/XR chest 1V portable [id number] IMPRESSION: No acute findings.
[2020-01-01 15:47] LABS: Add Urine Microscopic? YES; Bilirubin Urine 1+ (NEGATIVE); Blood Urine Neg (Negative); Glucose Urine UA Norm (Normal); Ketones Urine 1+ (Negative); Leukocyte Esterase Urine Negative (Negative); Nitrate Urine Negative (Negative); Protein Urine Neg (Negative); Urine Color Dark Yellow (Yellow); Urobilinogen Urine 1 mg/dL (Negative); pH Urine 5 (5-7)
[2020-01-01 15:51] LABS: Add Urine Culture? No; Bacteria Urine TRACE; Mucus Urine 3+; Squamous Epithelial Cell Urine 0-4 (0-5); WBC Urine 0-4 /hpf (0-5)
[2020-01-01 16:39] VITALS: BP 125/75; PULSE 70; RESP 16; O2SAT 98
[2020-01-02 19:18] LABS: Coronavirus Lab Test PTC Positive
--- NOTE | 2020-01-03 09:07 | PC.NURSE ---
Pt notified of positive COVID.
== END 2020-01-01 16:40 | disposition home or self-care (01) ==
PROVIDERS: Emergency Provider Family Medicine; PCP Family Medicine
DX: U07.1 COVID-19 (principal); Z79.02 Long term (current) use of antithrombotics/antiplatelets; Z87.891 Personal history of nicotine dependence
CPT/HCPCS: 12345; 36415; 71045; 80053; 81001; 82728; 83605; 83615; 84145; 85025; 85378; 85384; 86140; 87040; 87635; 87804; 99283

== ENCOUNTER 2022-09-06 03:45 | Inpatient (IN) | payer MEDICARE, OTHER, SELFPAY ==
[2022-09-06] VITALS (16 sets, daily range): BP systolic 103–144; BP diastolic 52–69; PULSE 77–92; RESP 15–25; TEMP 36.4–37.7; O2SAT 90–100; BMI 21.0
--- NOTE | 2022-09-06 03:57 | CTR_ITS ---
PROCEDURE INFORMATION: Exam: CT Abdomen And Pelvis With Contrast Exam date and time: 09/06/2022 4:40 AM Age: 87 years old Clinical indication: Pain and abnormal findings; Abnormal lab test; Elevated lipase and elevated wbc; Nausea and vomiting; Abdominal pain; Other: Epigastric/qlg; Prior surgery; Surgery date: 6+ months; Surgery type: Appy; Patient HX: Epigastric/rlq pain with n/v. Wbc of 20k. Lipase of 114. ; Additional info: Abd pain vomiting TECHNIQUE: Imaging protocol: Computed tomography of the abdomen and pelvis with contrast. Radiation optimization: All CT scans at this facility use at least one of these dose optimization techniques: automated exposure control; mA and/or kV adjustment per patient size (includes targeted exams where dose is matched to clinical indication); or iterative reconstruction. Contrast material: OMNI 350; Contrast volume: 75 ml; Contrast route: INTRAVENOUS (IV); REPORTING DATA: Count of CT and Cardiac NM exams in prior 12 months: This patient has received 0 known CTs and 0 known cardiac nuclear medicine studies in the 12 months prior to the current study. COMPARISON: CT abdomen pelvis w con* [id number] 08/09/2019 6:31 AM RADIATION DOSE METRICS: Total DLP (mGy-cm): 437.23 FINDINGS: Lungs: There are 2 triangular shaped subpleural nodules in the posterior right lower lobe, consistent with intrapulmonary lymph nodes. No suspicious lung nodule or mass identified. Bibasilar streaky atelectasis seen. No consolidation. Liver: Normal. No mass. Gallbladder and bile ducts: Cholelithiasis is present. No pericholecystic inflammatory changes to suggest cholecystitis. Pancreas: Normal. No ductal dilation. Spleen: Normal. No splenomegaly. Adrenal glands: Unchanged symmetric bilateral adrenal gland thickening, likely representing hyperplasia. Kidneys and ureters: Symmetric enhancement of the kidneys. There are bilateral nonobstructive kidney stones, the largest on the left measuring 0.4 cm. Stomach and bowel: There is diverticulosis without evidence of diverticulitis. There is segmental wall thickening of the distal ileum, resulting in dilatation of the small bowel proximally with scattered air-fluid levels. No significant surrounding inflammatory changes seen. Fibrofatty proliferation is present. Mild engorgement of the Vasa recta seen. Appendix: No evidence of appendicitis. Intraperitoneal space: Unremarkable. No free air. No significant fluid collection. Vasculature: Mild diffuse atherosclerotic disease is present. Lymph nodes: Unremarkable. No enlarged lymph nodes. Urinary bladder: Unremarkable as visualized. Reproductive: Unremarkable as visualized. Bones/joints: Degenerative changes of the spine seen. Soft tissues: Unremarkable. CT/CT abdomen pelvis w con* [id number] IMPRESSION: Imaging findings concerning for inflammatory enteritis involving the distal ileum, resulting in obstruction of small bowel proximally. Infectious etiology should also be considered, although less likely.
[2022-09-06] MEDS: morphine 4 mg/mL SDV 1 mL IVP (04:05)
[2022-09-06] MEDS: ondansetron 2 mg/ML SDV 2 mL 4 MG IVP (04:05)
[2022-09-06 04:08] LABS: Basophils # 0.1 10^3/uL (0.0-0.1); Basophils % 0.3 %; Eosinophils # 0.1 10^3/uL (0.0-0.8); Eosinophils % 0.3 %; Hematocrit 45.4 % (37.0-47.0); Hemoglobin 14.1 g/dL (11.5-15.3); Lymphocytes # 1.2 10^3/uL (0.8-4.8); Lymphocytes % 5.8 %; Mean Corpuscular HGB Conc 31.1 g/dL (30.0-36.0); Mean Corpuscular Hemoglobin 31.8 pg (28.0-34.0); Mean Corpuscular Volume 102.5 fl (81-99); Mean Platelet Volume 9.6 fL (7.4-10.4); Monocytes # 1.4 10^3/uL (0.2-0.9); Monocytes % 6.8 %; Neutrophils # 17.31 10^3/uL (1.8-7.7); Nucleated Red Blood Cells % 0 %; Platelet Count 293 10^3/cmm (130-400); Red Blood Count 4.43 10^6/uL (4.1-5.3); Red Cell Distribution Width 14.5 % (12.1-15.1); White Blood Count 20.1 10^3/uL (4.0-10.0)
--- NOTE | 2022-09-06 04:11 | W.ED.ABDPA2 ---
HPI - Abdominal Pain General: Chief Complaint: Abdominal Pain Stated Complaint: Abdominal Pain Time Seen by Provider: 09/06/22 03:52 History of Present Illness: 87-year-old female with a history of Crohn's disease. She presents after awakening this morning with epigastric and right lower quadrant abdominal pain with vomiting. She states that she had some diarrhea last night. It was nonbloody. No fever. No sick contacts. Pain is somewhat improved now, but she is still nauseated. MD elicited complaint: abdominal pain Pertinent past history: other Onset (ago): hour(s) Location: Diffuse Quality: stabbing, aching and fullness Radiation: none Migration to: no migration Exacerbating factors: vomiting Relieving factors: nothing Associated Symptoms: Reports bloating, change in stool character, diarrhea, loose stools, nausea, poor appetite and vomiting; Denies dysuria, fever(s), hematochezia and syncope Review of Systems Const: Denies: fever(s) ENMT: Denies: throat pain Card: Denies: syncope Resp: Reports: dyspnea GI: Reports: nausea, vomiting, diarrhea, bloating and change in stool character; Denies: hematochezia : Denies: dysuria Skin/Breast: Denies: rash PFSH ED PFSH: Medical History Crohn's disease Surgical History History of appendectomy Social History Smoking and tobacco status: former smoker Physical Exam Const: GENERAL APPEARANCE: cooperative, ill appearing and frail appearing HENMT: COMMON NORMALS: normocephalic, atraumatic and Normal external nose present HEAD & SCALP: normocephalic and atraumatic FACE & SINUS: normal facial exam NOSE: Normal external nose present Eye: COMMON NORMALS: Equal, round and reactive pupils present and EOMs intact bilaterally PUPIL: Yes Equal, round and reactive pupils present Neck/C-Spine: GENERAL: Yes trachea midline Chest: CHEST: Yes Symmetrical chest wall rise Resp: COMMON NORMALS: normal respiratory effort, No use of accessory muscles and clear to auscultation bilaterally AUSCULTATION: clear to auscultation bilaterally Cardio: COMMON NORMALS: regular rate and regular rhythm RATE: regular rate RHYTHM: regular rhythm GI: INSPECTION: Yes abdominal distension PALPATION: Yes Firmness to palpation present (GI), Yes Tenderness to palpation present (GI) and Yes Guarding due to palpation present (GI) Extremity: COMMON NORMALS: no pedal edema Neuro: ALVINO COMA SCALE: document GCS findings [place] coma scale eye opening: Spontaneous Alvino coma scale verbal response: Orientated Alvino coma scale motor response: Obey commands Alvino coma scale total score: 15 Course Vital Signs: Vital signs: Vital Signs Temperature 97.6 F 09/06/22 03:47 Pulse Rate 87 09/06/22 03:47 Respiratory Rate 19 H 09/06/22 03:47 Blood Pressure 114/54 09/06/22 03:47 Pulse Oximetry 100 09/06/22 03:47 Oxygen Delivery Me thod Nasal Cannula 09/06/22 03:47 Oxygen Flow Rate 4 09/06/22 03:47 MDM - Abdominal Pain Medical Decision Making 87-year-old female with belly pain, distention, and vomiting this morning. No fever. Her white blood cell count is 20. BUN is 31 creatinine is 1.5. She has received a liter of fluid blood pressure is elevated at 146/66. Her lactic acid is 3.8. Lipase minimally elevated at 114. Her C-reactive protein is 9.8 with a sed rate of 10. CT shows an infectious versus inflammatory enteritis of the distal ileum resulting in obstruction of small bowel. NG tube will be placed in the ER. Surgery has been consulted and will be on board. Hospitalist team will see the patient in the ER. Lab Data 09/06/22 03:58 09/06/22 03:58 Labs/Radiology: Radiology Impressions Abdomen/Pelvis CT 09/06/22 03:57 IMPRESSION: Imaging findings concerning for inflammatory enteritis involving the distal ileum, resulting in obstruction of small bowel proximally. Infectious etiology should also be considered, although less likely. Laboratory Results WBC 20.1 10^3/uL (4.0-10.0) H 09/06/22 03:58 RBC 4.43 10^6/uL (4.1-5.3) 09/06/22 03:58 Hgb 14.1 g/dL (11.5-15.3) 09/06/22 03:58 Hct 45.4 % (37.0-47.0) 09/06/22 03:58 MCV 102.5 fl (81-99) H 09/06/22 03:58 MCH 31.8 pg (28.0-34.0) 09/06/22 03:58 MCHC 31.1 g/dL (30.0-36.0) 09/06/22 03:58 RDW 14.5 % (12.1-15.1) 09/06/22 03:58 Plt Count 293 10^3/cmm (130-400) 09/06/22 03:58 MPV 9.6 fL (7.4-10.4) 09/06/22 03:58 Neut % (Auto) 86.0 % 09/06/22 03:58 Lymph % (Auto) 5.8 % 09/06/22 03:58 [place] % (Auto) 6.8 % 09/06/22 03:58 Eos % (Auto) 0.3 % 09/06/22 03:58 Baso % (Auto) 0.3 % 09/06/22 03:58 Neut # (Auto) 17.31 10^3/uL (1.8-7.7) H 09/06/22 03:58 Lymph # (Auto) 1.2 10^3/uL (0.8-4.8) 09/06/22 03:58 [place] # (Auto) 1.4 10^3/uL (0.2-0.9) H 09/06/22 03:58 Eos # (Auto) 0.1 10^3/uL (0.0-0.8) 09/06/22 03:58 Baso # (Auto) 0.1 10^3/uL (0.0-0.1) 09/06/22 03:58 Nucleated RBC % (auto) 0 % 09/06/22 03:58 Nucleated RBCs # 0.0 /100WBC 09/06/22 03:58 ESR 10 mm/hr (0-15) 09/06/22 03:58 Sodium 139 mmol/L (136-145) 09/06/22 03:58 Potassium 4.2 mmol/L (3.5-5.1) 09/06/22 03:58 Chloride 98 mmol/L (98-107) 09/06/22 03:58 Carbon Dioxide 26 mmol/L (22-29) 09/06/22 03:58 Anion Gap 19.2 (5-19) H 09/06/22 03:58 BUN 31 mg/dL (8-23) H 09/06/22 03:58 Creatinine 1.5 mg/dL (0.5-0.9) H 09/06/22 03:58 GFR Calculation Not Reportable 09/06/22 03:58 Glucose 137 mg/dL (65-115) H 09/06/22 03:58 Calculated Osmolality 297 mOsm/kg (285-295) H 09/06/22 03:58 Lactate 3.8 mmol/L (0.5-2.2) H 09/06/22 05:03 Calcium 10.3 mg/dL (8.5-10.5) 09/06/22 03:58 Total Bilirubin 0.3 mg/dL (0.15-1.2) 09/06/22 03:58 AST 23 U/L (0-32) 09/06/22 03:58 ALT 8 U/L (0-33) 09/06/22 03:58 Alkaline Phosphatase 75 U/L (35-105) 09/06/22 03:58 C-Reactive Protein 9.8 mg/L (0.0-4.9) H 09/06/22 03:58 Total Protein 7.2 g/dL (6.6-8.7) 09/06/22 03:58 Albumin 4.2 g/dL (3.5-5.2) 09/06/22 03:58 Globulin 3.0 g/dL (1.3-4.6) 09/06/22 03:58 Lipase 114 U/L (13-60) H 09/06/22 03:58 Discharge Plan Discharge Condition: Stable Prescriptions: No Action triamcinolone acetonide 0.1 % Cream 1 applic TOPICAL BID losartan 50 mg Tablet 50 mg PO DAILY sulfasalazine 500 mg Tablet 1,000 mg PO BID cyanocobalamin (vitamin B-12) [Vitamin B-12] 1,000 mcg Tablet 1,000 mcg PO DAILY clopidogrel 75 mg Tablet 75 mg PO DAILY methotrexate sodium 2.5 mg Tablet See Rx Instructions .ROUTE .COMPLEX Rx Instructions: TAKE SIX 2.5MG TABLETS EVERY WEEK ON TUESDAY TOTAL DOSE IS 15MG WEEKLY amlodipine 10 mg Tablet 10 mg PO DAILY simvastatin 5 mg Tablet 5 mg PO QPM folic acid 1 mg Tablet 1 mg PO DAILY docusate sodium 100 mg Capsule 100 mg PO BID Qty: 30 0RF Referrals: Georgia Crawford MD [Primary Care Provider] - Coding Level of Care Code ED Cutter Grinder Operator for Familia Mcdonald
[2022-09-06 04:26] LABS: Alanine Aminotransferase 8 U/L (0-33); Albumin Level 4.2 g/dL (3.5-5.2); Alkaline Phosphatase 75 U/L (35-105); Anion Gap 19.2 (5-19); Aspartate Amino Transferase 23 U/L (0-32); Blood Urea Nitrogen 31 mg/dL (8-23); C Reactive Protein 9.8 mg/L (0.0-4.9); Calcium 10.3 mg/dL (8.5-10.5); Carbon Dioxide 26 mmol/L (22-29); Chloride 98 mmol/L (98-107); Glucose 137 mg/dL (65-115); Lipase 114 U/L (13-60); Osmolality Calculated 297 mOsm/kg (285-295); Potassium 4.2 mmol/L (3.5-5.1); Sodium 139 mmol/L (136-145); Total Bilirubin 0.3 mg/dL (0.15-1.2); Total Protein 7.2 g/dL (6.6-8.7)
[2022-09-06] MEDS: iohexol 350 mg/mL 500 mL Btl (per mL) IV (04:43)
[2022-09-06 04:58] LABS: Erythrocyte Sedimentation Rate 10 mm/hr (0-15)
[2022-09-06 05:35] LABS: Lactate (Lactic Acid level) 3.8 mmol/L (0.5-2.2)
[2022-09-06] MEDS: sodium chloride 0.9% 1,000 ML 999 ML IV (05:39)
--- NOTE | 2022-09-06 06:42 | PM.HP ---
Providers/Chief Complaint Primary Care Provider: Georgia Crawford MD Chief Complaint: Abdominal Pain History of Present Illness Letitia Sinhg is a 87 year old female with past medical history of Crohn's disease, hypertension presented to the hospital today for complaint of feeling sick since yesterday. She said she came back [place] and started having abdominal pain and right lower quadrant subsequently followed by nausea and vomiting. She has been having a lot of belching. Initially she had some diarrhea which she states is gotten better at this time. She has no other symptoms. She states she has had several Crohn's flare in the past but it has been in remission for the most part. She is allergic to hydrochlorothiazide. Denies any other allergies. She is unable to confirm her medication list at this time as they are in the truck. Her daughter will be going and getting them soon. Her daughter states that at home she checked her pulse ox on the patient and it was 44. In the ambulance it was 78 patient was placed on 2 L nasal cannula. On arrival on room air patient was 96% saturating and sustaining however after being given morphine for pain her saturations dropped to 91% and therefore she was placed on 2 L nasal cannula again. Patient states she is really scared because recently she had a friend with the exact same thing apparently at our hospital. Initially she talked about transfer to [facility] however later changed her mind and therefore will be admitted here. At this time she denies any chest pain, nausea, vomiting, diarrhea however does have abdominal pain and right lower quadrant area. ED course: 114/54, 19, 87, 97.6, saturating 99% on [address] abdomen pelvis show findings concerning for inflammatory enteritis involving distal ileum, resulting in obstruction of small bowel proximally. Infectious etiology should also be considered although less likely. WBC 20.1, hemoglobin 14.1, platelets 293, sodium 139, potassium 4.2, creatinine 1.5, lactic acid 2.8, AST 23, ALT 8, C-reactive protein 9.8. Lipase 114. Surgeon has been called. Consult is pending at this time. Medications/Allergies Home Medications Medication Instructions Recorded Confirmed Last Taken Type amlodipine 10 mg tablet 10 mg PO DAILY 08/11/19 01/01/20 12/31/19 History clopidogrel 75 mg tablet 75 mg PO DAILY 08/11/19 01/01/20 12/31/19 History cyanocobalamin (vitamin B-12) 1,000 mcg PO DAILY 08/11/19 01/01/20 12/31/19 History 1,000 mcg tablet (Vitamin B-12) docusate sodium 100 mg capsule 100 mg PO BID #30 caps 08/11/19 01/01/20 Unknown Rx folic acid 1 mg tablet 1 mg PO DAILY 08/11/19 01/01/20 12/31/19 History losartan 50 mg tablet 50 mg PO DAILY 08/11/19 01/01/20 12/31/19 History methotrexate sodium 2.5 mg tablet See Rx Instructions .Route .COMPLEX 08/11/19 01/01/20 01/01/20 History simvastatin 5 mg tablet 5 mg PO QPM 08/11/19 01/01/20 12/30/19 History sulfasalazine 500 mg tablet 1,000 mg PO BID 08/11/19 01/01/20 12/31/19 History triamcinolone acetonide 0.1 % 1 applic topical BID 01/01/20 01/01/20 12/30/19 History topical cream Allergies Allergy/AdvReac Type Severity Reaction Status Date / Time hydrochlorothiazide Allergy Unknown Verified 09/06/22 03:55 PFSH Acute PFSH: Medical History Crohn's disease Surgical History History of appendectomy Social History Smoking and tobacco status: former smoker Vitals/I&O/Wt Last Vital Signs Temp 97.6 F 09/06/22 03:47 Pulse 82 09/06/22 06:32 Resp 24 H 09/06/22 06:32 BP 144/61 09/06/22 05:25 Pulse Ox 96 09/06/22 06:32 O2 Del Method Nasal Cannula 09/06/22 06:32 O2 Flow Rate 3 09/06/22 06:32 Weight last 48 hrs Weight 52.163 kg Physical Exam Narrative: General: Alert oriented x3, patient seen laying in bed appearing anxious and worried at this time. On 2 L nasal cannula. Daughter at bedside. HEENT: Normocephalic, atraumatic, EOMI, breathing comfortably. Cardio: Regular rate rhythm, normal S1-S2 Respiratory: Good bilateral air entry, no wheezes no rhonchi appreciated GI: Abdomen firm, tender to palpation in right lower quadrant. Bowel sounds present in all 4 quadrants. Mild distention noted. Behavior: Appropriate and cooperative Extremities: No edema bilateral lower extremities. Data 09/06/22 03:58 09/06/22 03:58 A&P Assessment and plan (1) Crohn's disease: (2) CARLOS (acute kidney injury): (3) Bowel obstruction: Plan #Small bowel obstruction #CARLOS most likely secondary to dehydration #History of Crohn's disease #Former smoker #Lactic acidosis, sepsis ? Started on NG tube ? Normal saline 125 cc/h. She did get 2 L normal saline bolus in ER ? Wean off oxygen as able ? Morphine 2 mg every 4 hours as needed for pain ? Repeat lactic acid in 3 hours. ? As needed 1.5 at this time. Expected to improve with IV fluids. Mildly elevated anion gap most likely secondary to dehydration. ? General surgery consulted. Pending ? Restart home medications after med rec completed. Daughter will go and get patient's medications from her car. ? Placed on Solu-Medrol 40 every 8 hours ? Encourage GI follow-up at discharge as an outpatient ? Empirically cover with Zosyn at this time ? DVT prophylaxis heparin SQ twice daily ? Patient no longer having diarrhea however if she does we may test for stool culture, ova parasite screen ? Zofran for nausea ?NPO ? Admit to medical surgical floor Full code Attestations Medical Necessity Statement*: Greater than 2 midnight stay for management of small bowel obstruction, possible Crohn's flare. Coding Level of Care Code G0425 (30 min) TH Encounter Time (min): 45 Patient seen via Telehealth in the acute care setting (hospital or ED location) by agreement and consent of patient or patient publications sales representative. Telehealth technology used during the visit includes video and audio. This patient encounter is appropriate and reasonable under the circumstances given the patient?s particular presentation at this time. The patient has been advised of the potential risks and limitations of this mode of treatment (including but not limited to the absence of in-person examination at this time) and has agreed to be treated by an off-site physician for this visit. If deemed clinically necessary from this telehealth visit, or if condition or consent for telehealth visit changes, an in-person visit will be arranged. For this encounter, total time for the origination of telehealth care on this date is as shown. Diagnoses Crohn's disease K50.90 CARLOS (acute kidney injury) N17.9 Bowel obstruction K56.609
[2022-09-06] MEDS: piperacillin-tazobactam 3.375 GM in sodium chloride 0.9% (plus) 50 ML IV ×3 (06:48→22:11)
[2022-09-06 07:27] LABS: Lactic Sepsis W/Reflex 3.2 mmol/L (0.5-2.2)
--- NOTE | 2022-09-06 07:45 | XRR_ITS ---
PROCEDURE INFORMATION: Exam: XR Chest Exam date and time: 09/06/2022 7:52 AM Age: 87 years old Clinical indication: Device placement; Ng tube; Additional info: Ng tube placement TECHNIQUE: Imaging protocol: Radiologic exam of the chest. Views: 1 view. COMPARISON: CR XR chest 1V portable [id number] 01/01/2020 3:22 PM FINDINGS: Tubes, catheters and devices: A nasogastric tube is present in satisfactory position with the tip projecting in the stomach in the left upper quadrant. Lungs: Mild basilar atelectasis. Pleural spaces: Unremarkable. No pleural effusion. No pneumothorax. Heart/Mediastinum: Unremarkable. No cardiomegaly. Bones/joints: Unremarkable. XR/XR chest 1V portable [id number] IMPRESSION: Satisfactory nasogastric tube position.
[2022-09-06 08:51] LABS: Reflex Lactate Order REFLEX LACTIC ORDERD
[2022-09-06] MEDS: pantoprazole 40 mg SDV IVP (10:04)
[2022-09-06] MEDS: heparin 5,000 unit/mL INJ 1 mL 5000 UNIT SUBCUT ×2 (10:04→18:20)
[2022-09-06 10:05] LABS: Lactic Acid level (Lactate) 2.6 mmol/L (0.5-2.2)
[2022-09-06] MEDS: sodium chloride 0.9% 1,000 ML 125 ML IV ×3 (10:05→22:24)
[2022-09-06] MEDS: morphine 4 mg/mL SDV 1 mL 1 MG IVP ×2 (11:45→16:55)
[2022-09-06 11:46] LABS: Iron 40 ug/dL (37-145); Percent Saturation 11.6 % (20-50); Total Iron Binding Capacity 344 mcg/dl; Unsaturated Iron Binding 304 ug/dL (112-347); Vitamin B12 744 pg/mL (232-1245)
[2022-09-06 12:37] LABS: Free T4 Free Thyroxine 1.59 ng/dL (0.82-1.77); T3 Free 3.4 PG/ML (2.0-4.4)
--- NOTE | 2022-09-06 14:19 | PC.NURSE ---
Patient's family had questions regarding patient's current plan of care. I reviewed current treatment at this time, including bowel rest, hydration with IV, and antibiotics. They verbalize understanding. Contacted Dr. Juarez and his ETA is 15 minutes or less to visit with family regarding current plan of care. I informed them of this and they verbalize understanding and deny further questions or concerns.
--- NOTE | 2022-09-06 15:43 | PM.CONSULT ---
Providers/Reason For Consult Consulting Physician/Specialty*: Dr. Vince Juarez, DO/General surgery Reason for Consult*: Crohn's flare with resulting bowel obstruction Attending Physician: Kojo Gutiérrez MD Primary Care Provider: Georgia Crawford MD History of Present Illness History of Present Illness Letitia Singh is a 87 year old female, with a history of Crohn's disease managed by sulfasalazine, who presented to the hospital after 1 day history of nausea vomiting and abdominal pain. Her abdominal pain is mostly right lower quadrant and does not radiate. She reports she has not had a bowel movement in over a day. Her last Crohn's flare was approximately 3 years ago when she had similar symptoms then. CT of the abdomen pelvis shows terminal ileitis with resulting small bowel obstruction. Review of Systems General: Reports: 10 or more systems reviewed and unremarkable except in HPI and below Medications/Allergies Home Medications Medication Instructions Recorded Confirmed Last Taken Type amlodipine 10 mg tablet 10 mg PO DAILY 08/11/19 09/06/22 09/05/22 History clopidogrel 75 mg tablet 75 mg PO DAILY 08/11/19 09/06/22 09/05/22 History cyanocobalamin (vitamin B-12) 1,000 mcg PO DAILY 08/11/19 09/06/22 09/05/22 History 1,000 mcg tablet (Vitamin B-12) docusate sodium 100 mg capsule 100 mg PO BID #30 caps 08/11/19 09/06/22 09/05/22 Rx folic acid 1 mg tablet 1 mg PO DAILY 08/11/19 09/06/22 09/05/22 History losartan 50 mg tablet 50 mg PO DAILY 08/11/19 09/06/22 09/05/22 History methotrexate sodium 2.5 mg tablet See Rx Instructions .Route .COMPLEX 08/11/19 09/06/22 08/31/22 History simvastatin 5 mg tablet 5 mg PO QPM 08/11/19 09/06/22 09/05/22 History sulfasalazine 500 mg tablet 1,000 mg PO BID 08/11/19 09/06/22 09/05/22 History calcium carbonate 500 mg calcium 500 mg PO BID 09/06/22 09/06/22 09/05/22 History (1,250 mg) tablet mupirocin 2 % topical ointment 1 applic topical BID 09/06/22 09/06/22 Unknown History Allergies Allergy/AdvReac Type Severity Reaction Status Date / Time hydrochlorothiazide Allergy Unknown Verified 09/06/22 03:55 Current Medications Generic Name Dose Route Start Last Admin Trade Name Freq PRN Reason Stop Dose Admin Heparin Sodium (Porcine) 5,000 unit 09/06/22 06:45 09/06/22 10:04 Heparin 5,000 Unit/Ml Inj 1 Ml SUBCUT 5,000 unit Q12H EMILIA Administration Sodium Chloride 1,000 mls @ 125 mls/hr 09/06/22 06:45 09/06/22 10:05 Sodium Chloride 0.9% IV 125 mls/hr .Q8H EMILIA Administration Morphine Sulfate 1 mg 09/06/22 10:40 09/06/22 11:45 Morphine 4 Mg/Ml Sdv 1 Ml IVP 1 mg Q4H PRN Administration SEVERE PAIN Pantoprazole Sodium 40 mg 09/06/22 06:45 09/06/22 10:04 Pantoprazole 40 Mg Sdv IVP 40 mg Q24H EMILIA Administration PFSH Acute PFSH: Medical History Crohn's disease Surgical History History of appendectomy Social History Smoking and tobacco status: former smoker Vitals/I&O/Wt Last Vital Signs Temp 98.6 F 09/06/22 11:38 Pulse 91 09/06/22 14:25 Resp 20 H 09/06/22 14:25 BP 114/69 09/06/22 11:38 Pulse Ox 93 09/06/22 14:25 O2 Del Method Nasal Cannula 09/06/22 14:25 O2 Flow Rate 0.5 09/06/22 14:25 09/06/22 09/06/22 09/06/22 06:59 14:59 22:59 Intake Total 1050 / 1050 Balance 1050 / 1050 Weight last 48 hrs Weight 115 lb Weight 115 lb Physical Exam Narrative: General : Patient is well developed , no acute distress, oriented x3 Head : Normal cephalic, a-traumatic. Ears : Pinnae and external canal are normal. Hearing is normal. Eyes : PERRLA, Sclera and injection are normal. No conjunctival discharge. Nose : Mucous membranes are without erythema. Throat : buccal mucosa is normal, gums are without significant recession or hypertrophy. Lungs : Equal chest rise bilaterally, no use of accessory muscles, trachea is midline. Cor : Rate and rhythm are normal. Abdomen : Soft, mildly distended, mild right lower quadrant tenderness, no g/r/m Extremities : No edema, no cyanosis or clubbing, dorsalis pedis pulses are present bilaterally, non-tender to palpation of calves. Upper extremities are normal bilaterally. Back : non-tender to palpation, no CVA tenderness. Neuro : CN II - XII intact, Upper and lower extremities have equal and full strength Urinary Catheter Management: Chen: Cath Placed During This Visit: yes Urinary Catheter Date of Insertion: 09/06/22 Urinary Catheter Time of Insertion: 07:30 Data 09/07/22 04:54 09/07/22 04:54 Micro: Microbiology 09/06/22 06:57 Blood Culture - Preliminary Blood SPECIMEN COLLECTED 09/06/22 06:52 Blood Culture - Preliminary Blood SPECIMEN COLLECTED A&P Assessment and plan (1) Crohn's disease: (2) Small bowel obstruction: Plan Patient is having a Crohn's flare. I agree with IV steroids. If she does not respond she may need an ileocecectomy. She likely will recover with conservative management however. IV fluids NGT to LIWS Medical management per hospitalist Coding Level of Care Code Acute Code for [facility] Diagnoses Crohn's disease K50.90 Small bowel obstruction K56.609
[2022-09-06] MEDS: lanolin oint 7 gm 1 APPLIC TOPICAL (16:56)
[2022-09-06 17:23] LABS: Add Urine Microscopic? YES; Bilirubin Urine 1+ (Negative); Blood Urine 3+ (Negative); Glucose Urine UA Norm (Normal); Ketones Urine Negative (Negative); Leukocyte Esterase Urine Trace (Negative); Nitrate Urine Negative (Negative); Protein Urine Trace (Negative); Urine Appearance Clear (CLEAR); Urine Color Yellow (Yellow); Urobilinogen Urine Norm (Negative); pH Urine 5 (5-7)
[2022-09-06 17:27] LABS: Add Urine Culture? Yes; Bacteria Urine 2+ /hpf
--- NOTE | 2022-09-06 18:49 | PC.NURSE ---
Due to pharmacy not having solu-medrol reconsituted, scheduling changes made to medication. Valencia Vazquez, Heather Mccarthy, and pharmacy aware.
[2022-09-06] MEDS: water for injection-sterile 10 ML 100 ML (20:50)
[2022-09-07] VITALS (10 sets, daily range): BP systolic 101–146; BP diastolic 51–65; PULSE 72–92; RESP 16–18; TEMP 36.6–37.1; O2SAT 90–94
[2022-09-07 05:33] LABS: Basophils % 0.3 %; Eosinophils % 0.1 %; Hematocrit 32.8 % (37.0-47.0); Hemoglobin 9.8 g/dL (11.5-15.3); Lymphocytes # 0.4 10^3/uL (0.8-4.8); Lymphocytes % 6.4 %; Mean Corpuscular HGB Conc 29.9 g/dL (30.0-36.0); Mean Corpuscular Hemoglobin 31.1 pg (28.0-34.0); Mean Corpuscular Volume 104.1 fl (81-99); Mean Platelet Volume 9.6 fL (7.4-10.4); Monocytes # 0.5 10^3/uL (0.2-0.9); Monocytes % 7.4 %; Neutrophils # 5.73 10^3/uL (1.8-7.7); Neutrophils % 85.4 %; Nucleated Red Blood Cells % 0 %; Platelet Count 175 10^3/cmm (130-400); Red Blood Count 3.15 10^6/uL (4.1-5.3); Red Cell Distribution Width 14.5 % (12.1-15.1); White Blood Count 6.7 10^3/uL (4.0-10.0)
[2022-09-07 05:52] LABS: Alanine Aminotransferase < 5 U/L (0-33); Alkaline Phosphatase 49 U/L (35-105); Anion Gap 13.2 (5-19); Aspartate Amino Transferase 15 U/L (0-32); Blood Urea Nitrogen 19 mg/dL (8-23); Carbon Dioxide 24 mmol/L (22-29); Chloride 105 mmol/L (98-107); Chol HDL Ratio 2.98 mg/dL (0.0-4.40); Cholesterol 122 mg/dL (0-200); Globulin 2.3 g/dL (1.3-4.6); Glucose 113 mg/dL (65-115); HDL Cholesterol 41 mg/dL (60-100); LDL Cholesterol Calculated 45 mg/dL (50-129); Osmolality Calculated 289 mOsm/kg (285-295); Potassium 4.2 mmol/L (3.5-5.1); Sodium 138 mmol/L (136-145); Total Bilirubin 0.3 mg/dL (0.15-1.2); Total Protein 5.3 g/dL (6.6-8.7); Triglycerides 181 mg/dL (0-150); VLDL Cholestrol Calculation 36 mg/dL (0-30)
[2022-09-07 05:55] LABS: Creatinine Clr Calc Pharmacy 32.4648
[2022-09-07] MEDS: sodium chloride 0.9% 1,000 ML 125 ML IV ×3 (05:58→22:17)
[2022-09-07] MEDS: piperacillin-tazobactam 3.375 GM in sodium chloride 0.9% (plus) 50 ML IV (05:58)
[2022-09-07] MEDS: pantoprazole 40 mg SDV IVP (05:58)
[2022-09-07] MEDS: morphine 4 mg/mL SDV 1 mL 1 MG IVP (06:03)
[2022-09-07] MEDS: heparin 5,000 unit/mL INJ 1 mL 5000 UNIT SUBCUT ×2 (06:05→18:59)
[2022-09-07 06:08] LABS: Folate Level 19.3 ng/mL (4.8-37.3)
[2022-09-07 06:09] LABS: Slide Review Slide Review Perform
[2022-09-07] MEDS: water for injection-sterile 10 ML 50 ML (08:54)
--- NOTE | 2022-09-07 09:37 | PC.CHAP ---
Pastoral Care Encounter/Spiritual Assessment Type of Contact [] Declined strap buckler machine visit [] Patient/Family/Request visit [] Outpatient visit [] Follow-up visit [] Physician referral [] Code/Alert [x] Routine visit [] Staff referral [] Actively dying [] Patient sleeping [] Family support [] [] Out of room [] Palliative care [] [] Receiving care in room [] Pre-surgical visit [] Trauma [] Long length of stay [] ICU visit [] Other: Relational/Emotional Strength [x] Patient feels connected with others/family/visitors/staff [] Distress [] Loneliness/isolation [] Abandonment Spirituality of Patient [x] Person of Shaunna [x] Attends Yazdanism of their [place]un[place] [x] Believes in Prayer [x] Reads Bible or Episcopal materials [] There are Spiritual issues to be addressed Bi Data Modeler Interventions [x] Prayer [] Active listening [] Non-anxious presence [x] Spiritual/emotional support [] Crisis/trauma care [] Spiritual counseling [] Bereavement support [] Provided bereavement packet [] Provided Bible/devotional materials [] Provided toy/stuffed animal, coloring book to patient or family member [] Provided Communion [] Anointing/[place] [] Salvation [x] Completed spiritual assessment [] Other: Impact on Illness or Injury [] Angry [] Fearful [] Anxious [] Often cries [] Exhaustion [] Unable to work [] Unable to attend uatsdin [] Unable to walk/stand [] Unable to read [] Unable to drive [] Unable to eat/drink [] Unable to sleep [] Unable to be with family [] Patient intubated [] Other: Summary Time spent with patient 5 min
[2022-09-07 11:35] LABS: Lactic Sepsis W/Reflex 0.7 mmol/L (0.5-2.2); Lipase 17 U/L (13-60)
[2022-09-07] MEDS: phenol oral Spray 177 mL 3 SPRAY MUCOUS MEM (11:48)
--- NOTE | 2022-09-07 13:07 | P.PN_ITS ---
Subjective Subjective: No acute events overnight. Today morning seen with NG tube in place. Patient laying comfortably in bed. States feeling better. No nausea or vomiting but states she has not had anything to eat so cannot say for sure. Denies any further abdominal pain. Passing gas but no bowel movements. Patient states yesterday she was having abdominal pain mostly in the epigastric area radiating to back along with nausea but no vomiting and has not had anything to eat since Tuesday. Vitals/I&O/Wt Last Vital Signs Temp 97.8 F 09/07/22 08:00 Pulse 72 09/07/22 08:39 Resp 16 09/07/22 08:39 BP 111/65 09/07/22 08:00 Pulse Ox 94 09/07/22 08:39 O2 Del Method Nasal Cannula 09/07/22 08:39 O2 Flow Rate 2 09/07/22 08:39 09/06/22 09/07/22 09/07/22 22:59 06:59 14:59 Intake Total 1599.584 / 2649.584 995.833 / 3645.417 926.667 / 926.667 Output Total 600 / 600 600 / 1200 Balance 999.584 / 2049.584 395.833 / 2445.417 926.667 / 926.667 Weight last 48 hrs Weight 52.163 kg Weight 52.163 kg Physical Exam Narrative: General: Laying comfortably in bed, AO x3, no acute distress on 2 L nasal cannula HEENT: Normocephalic, atraumatic, EOMI, breathing comfortably. Cardio: Regular rate rhythm, normal S1-S2 Respiratory: Good bilateral air entry, no wheezes no rhonchi appreciated GI: Abdomen soft, nontender with slight tenderness with deep palpation to ep igastric area, bowel sounds sluggish but present in all quadrants. Behavior: Appropriate and cooperative Extremities: No edema bilateral lower extremities. Urinary Catheter Management: Chen: Cath Placed During This Visit: yes Reason for Continuing Indwelling Catheter: Acute Urinary Retention or Obstructi on Urinary Catheter Date of Insertion: 09/06/22 Urinary Catheter Time of Insertion: 07:30 Data 09/07/22 04:54 09/07/22 04:54 Micro: Microbiology 09/06/22 06:57 Blood Culture - Preliminary Blood NEGATIVE TO DATE 09/06/22 06:52 Blood Culture - Preliminary Blood NEGATIVE TO DATE A&P Assessment and plan (1) Crohn's disease: (2) CARLOS (acute kidney injury): (3) Bowel obstruction: (4) Elevated lactic acid level: (5) Pancreatitis: Plan 87-year-old female baseline history of Crohn's disease on oral medication presented with abdominal pain mostly in the epigastric area radiating to back found to have elevated lactate, lipase and small bowel obstruction on CT abdomen pelvis. Repeat lactate, lipase level. Continue with IV hydration at 125 cc/h. Clamp NG tube. Start on clear liquid diet. Continue with Solu-Medrol 40 mg every 12 hourly. Unlikely infectious source. We will hold off on antibiotics for now. If patient tolerates clear liquid diet and no significant nausea or vomiting with clamping of NG tube can discontinue by the later in the day. Appreciate surgical recommendations. Hypoxia: Most likely in setting of poor breathing effort. Incentive spirometer. Wean off oxygen keeping saturation over 90%. Out of bed to chair. Full code. Protonix for PUD prophylaxis Heparin for DVT prophylaxis Clear liquid diet. Attestations Medical Necessity Statement*: Requires further hospitalization for management of small bowel obstruction and early pancreatitis in a patient with baseline Crohn's disease while diet is gradually advanced and NG tube is removed Diagnoses Crohn's disease K50.90 CARLOS (acute kidney injury) N17.9 Bowel obstruction K56.609 Elevated lactic acid level R79.89 Pancreatitis K85.90
[2022-09-07 13:54] LABS: Estmated Average Glucose 68
--- NOTE | 2022-09-07 18:39 | P.PN_ITS ---
Subjective Subjective: Patient began passing flatus this morning. Pain much improved. Vitals/I&O/Wt Last Vital Signs Temp 97.9 F 09/07/22 16:00 Pulse 88 09/07/22 16:00 Resp 18 09/07/22 16:00 BP 146/65 09/07/22 16:00 Pulse Ox 91 09/07/22 16:00 O2 Del Method Nasal Cannula 09/07/22 16:00 O2 Flow Rate 2 09/07/22 08:39 09/07/22 09/07/22 09/07/22 06:59 14:59 22:59 Intake Total 995.833 / 3645.417 926.667 / 926.667 420 / 1346.667 Output Total 600 / 1200 600 / 600 Balance 395.833 / 2445.417 926.667 / 926.667 -180 / 746.667 Weight last 48 hrs Weight 115 lb Weight 115 lb Physical Exam Narrative: General: No acute distress, awake alert and oriented x3 Abdomen: Soft, mildly distended, mild tenderness to palpation in the right lower quadrant Urinary Catheter Management: Chen: Cath Placed During This Visit: yes Reason for Continuing Indwelling Catheter: Acute Urinary Retention or Obstruction Urinary Catheter Date of Insertion: 09/06/22 Urinary Catheter Time of Insertion: 07:30 Data 09/07/22 04:54 09/07/22 04:54 Micro: Microbiology 09/06/22 06:57 Blood Culture - Preliminary Blood NEGATIVE TO DATE 09/06/22 06:52 Blood Culture - Preliminary Blood NEGATIVE TO DATE A&P Assessment and plan (1) Crohn's disease: (2) Small bowel obstruction: Plan Patient is having a Crohn's flare. I agree with IV steroids. If she does not respond she may need an ileocecectomy. She likely will recover with conservative management however. IV fluids NGT removed Clear liquid diet Medical management per hospitalist Attestations Medical Necessity Statement*: Per hospitalist Coding Level of Care Code Acute Code for [facility] Fwd Diagnoses Crohn's disease K50.90 Small bowel obstruction K56.609
[2022-09-08] VITALS: BP 131/72; PULSE 79; RESP 16; TEMP 37; O2SAT 91
[2022-09-08 01:46] LABS: Basophils % 0.2 %; Hematocrit 31.7 % (37.0-47.0); Hemoglobin 9.4 g/dL (11.5-15.3); Lymphocytes # 0.4 10^3/uL (0.8-4.8); Lymphocytes % 5.8 %; Mean Corpuscular HGB Conc 29.7 g/dL (30.0-36.0); Mean Corpuscular Hemoglobin 31.3 pg (28.0-34.0); Mean Corpuscular Volume 105.7 fl (81-99); Mean Platelet Volume 9.9 fL (7.4-10.4); Monocytes # 0.3 10^3/uL (0.2-0.9); Monocytes % 4.7 %; Neutrophils % 88.7 %; Nucleated Red Blood Cells % 0 %; Platelet Count 171 10^3/cmm (130-400); Red Cell Distribution Width 14.3 % (12.1-15.1); White Blood Count 6.2 10^3/uL (4.0-10.0)
[2022-09-08 02:04] LABS: Alanine Aminotransferase < 5 U/L (0-33); Alkaline Phosphatase 47 U/L (35-105); Anion Gap 13.2 (5-19); Aspartate Amino Transferase 16 U/L (0-32); Blood Urea Nitrogen 13 mg/dL (8-23); Calcium 7.9 mg/dL (8.5-10.5); Carbon Dioxide 21 mmol/L (22-29); Chloride 107 mmol/L (98-107); Globulin 2.4 g/dL (1.3-4.6); Glucose 111 mg/dL (65-115); Osmolality Calculated 285 mOsm/kg (285-295); Potassium 4.2 mmol/L (3.5-5.1); Sodium 137 mmol/L (136-145); Total Bilirubin 0.2 mg/dL (0.15-1.2); Total Protein 5.4 g/dL (6.6-8.7)
[2022-09-08 04:00] VITALS: BP 123/68; PULSE 75; RESP 18; TEMP 37.1; O2SAT 94
[2022-09-08] MEDS: pantoprazole 40 mg SDV IVP (05:51)
[2022-09-08] MEDS: heparin 5,000 unit/mL INJ 1 mL 5000 UNIT SUBCUT (05:51)
[2022-09-08] MEDS: sodium chloride 0.9% 1,000 ML 125 ML IV (05:51)
[2022-09-08 07:40] VITALS: PULSE 76; RESP 16; O2SAT 94
[2022-09-08 08:00] VITALS: BP 139/62; PULSE 69; RESP 15; TEMP 36.4; O2SAT 97
--- NOTE | 2022-09-08 09:59 | PM.DCS ---
Discharge Providers Date of Admission: 09/06/22 06:10 Date of Discharge: September 08, 2022 Attending Provider at Admission: Margaret Villalba MD Attending Provider at Discharge: Kojo Gutiérrez MD Consults: Surgery: Dr. Juarez Primary Care Provider: Georiga Crawford MD Diagnoses at Discharge Discharge Diagnosis (1) Crohn's disease: Status: Acute (2) Small bowel obstruction: Status: Resolved Reason for Visit Reason for Visit: Abdominal Pain Brief History: History as per HPI: Letitia Singh is a 87 year old female with past medical history of Crohn's disease, hypertension presented to the hospital today for complaint of feeling sick since yesterday.? She said she [place] [facility] and started having abdominal pain and right lower quadrant subsequently followed by nausea and vomiting.? She has been having a lot of belching.? Initially she had some diarrhea which she states is gotten better at this time.? She has no other symptoms.? She states she has had several Crohn's flare in the past but it has been in remission for the most part.? She is allergic to hydrochlorothiazide.? Denies any other allergies.? She is unable to confirm her medication list at this time as they are in the truck.? Her daughter will be going and getting them soon.? Her daughter states that at home she checked her pulse ox on the patient and it was 44.? In the ambulance it was 78 patient was placed on 2 L nasal cannula.? On arrival on room air patient was 96% saturating and sustaining however after being given morphine for pain her saturations dropped to 91% and therefore she was placed on 2 L nasal cannula again.? Patient states she is really scared because recently she had a friend with the exact same thing apparently at our hospital.? Initially she talked about transfer to [place] however later changed her mind and therefore will be admitted here.? At this time she denies any chest pain, nausea, vomiting, diarrhea however does have abdominal pain and right lower quadrant area. ED course: 114/54, 19, 87, 97.6, saturating 99% on 2 L nasal cannula.? CT abdomen pelvis show findings concerning for inflammatory enteritis involving distal ileum, resulting in obstruction of small bowel proximally.? Infectious etiology should also be considered although less likely.? WBC 20.1, hemoglobin 14.1, platelets 293, sodium 139, potassium 4.2, creatinine 1.5, lactic acid 2.8, AST 23, ALT 8, C-reactive protein 9.8.? Lipase 114.? Surgeon has been called.? Consult is pending at this time. Hospital Course Hospital Course Patient was admitted to the hospital further evaluation and management small bowel obstruction and possible pancreatitis in setting of chronic Crohn's disease. She was started on conservative treatment with NG tube placement, IV hydration and IV steroids. Surgery was consulted. Patient responded well to the treatment and her symptoms resolved by the next day. She started on clear liquid diet which she has tolerated well. Patient also had soft bowel movements during hospitalization. On admission she was also found to have CARLOS which has resolved with IV hydration. On admission she was found to be requiring minimal oxygen to cannot maintain saturations more than 90 which is most likely secondary to poor respiratory effort in the setting of abdominal pain. Prior to discharge home O2 evaluation was done and she did not qualify for oxygen. She has been discharged hemodynamically stable condition on oral steroid taper within next 1 week. She is to hold off on taking losartan and methotrexate for next 2 weeks. She is to follow-up with a primary care provider within next 1 week. She is to continue checking her blood pressure daily and maintain a blood pressure diary and follow-up with a primary care provider for further adjustment of medications as needed. Physical Exam Narrative: General: Laying comfortably in bed, AO x3, no acute distress on 2 L nasal cannula HEENT: Normocephalic, atraumatic, EOMI, breathing comfortably. Cardio: Regular rate rhythm, normal S1-S2 Respiratory: Good bilateral air entry, no wheezes no rhonchi appreciated GI: Abdomen soft, nontender with slight tenderness with deep palpation to epigastric area, bowel sounds sluggish but present in all quadrants. Behavior: Appropriate and cooperative Extremities: No edema bilateral lower extremities. Urinary Catheter Management: Chen: Cath Placed During This Visit: yes Reason for Continuing Indwelling Catheter: Acute Urinary Retention or Obstruction Urinary Catheter Date of Insertion: 09/06/22 Urinary Catheter Time of Insertion: 07:30 Discharge Data Studies Completed and Pending Completed Studies During Hospitalization Category Date Time Status CT abdomen pelvis w con* [id number] Stat Cat Scan 09/06/22 03:57 Completed XR chest 1V portable [id number] Routine Exams 09/06/22 07:45 Completed Pending at discharge Category Date Time Status Blood Culture Routine Lab 09/06/22 06:57 Results Urinalysis Stat Lab 09/06/22 03:57 Uncollected Radiology Impressions Abdomen/Pelvis CT 09/06/22 03:57 IMPRESSION: Imaging findings concerning for inflammatory enteritis involving the distal ileum, resulting in obstruction of small bowel proximally. Infectious etiology should also be considered, although less likely. Chest X-Ray 09/06/22 07:45 IMPRESSION: Satisfactory nasogastric tube position. Laboratory Results WBC 6.2 10^3/uL (4.0-10.0) 09/08/22 00:54 RBC 3.00 10^6/uL (4.1-5.3) L 09/08/22 00:54 Hgb 9.4 g/dL (11.5-15.3) L 09/08/22 00:54 Hct 31.7 % (37.0-47.0) L 09/08/22 00:54 MCV 105.7 fl (81-99) H 09/08/22 00:54 MCH 31.3 pg (28.0-34.0) 09/08/22 00:54 MCHC 29.7 g/dL (30.0-36.0) L 09/08/22 00:54 RDW 14.3 % (12.1-15.1) 09/08/22 00:54 Plt Count 171 10^3/cmm (130-400) 09/08/22 00:54 MPV 9.9 fL (7.4-10.4) 09/08/22 00:54 Neut % (Auto) 88.7 % 09/08/22 00:54 Lymph % (Auto) 5.8 % 09/08/22 00:54 [place] % (Auto) 4.7 % 09/08/22 00:54 Eos % (Auto) 0.0 % 09/08/22 00:54 Baso % (Auto) 0.2 % 09/08/22 00:54 Neut # (Auto) 5.50 10^3/uL (1.8-7.7) 09/08/22 00:54 Lymph # (Auto) 0.4 10^3/uL (0.8-4.8) L 09/08/22 00:54 [place] # (Auto) 0.3 10^3/uL (0.2-0.9) 09/08/22 00:54 Eos # (Auto) 0.0 10^3/uL (0.0-0.8) 09/08/22 00:54 Baso # (Auto) 0.0 10^3/uL (0.0-0.1) 09/08/22 00:54 Nucleated RBC % (auto) 0 % 09/08/22 00:54 Nucleated RBCs # 0.0 /100WBC 09/08/22 00:54 ESR 10 mm/hr (0-15) 09/06/22 03:58 Sodium 137 mmol/L (136-145) 09/08/22 00:54 Potassium 4.2 mmol/L (3.5-5.1) 09/08/22 00:54 Chloride 107 mmol/L (98-107) 09/08/22 00:54 Carbon Dioxide 21 mmol/L (22-29) L 09/08/22 00:54 Anion Gap 13.2 (5-19) 09/08/22 00:54 BUN 13 mg/dL (8-23) 09/08/22 00:54 Creatinine 0.7 mg/dL (0.5-0.9) 09/08/22 00:54 GFR Calculation Not Reportable 09/08/22 00:54 Glucose 111 mg/dL (65-115) 09/08/22 00:54 Estimat Average Glucose 68 09/06/22 03:58 Hemoglobin A1c 4.0 % (4.0-6.0) 09/06/22 03:58 Calculated Osmolality 285 mOsm/kg (285-295) 09/08/22 00:54 Lactic Acid 0.7 mmol/L (0.5-2.2) 09/07/22 11:00 Lactic Acid (Sepsis) 2.6 mmol/L (0.5-2.2) H 09/06/22 09:35 Lactate 3.8 mmol/L (0.5-2.2) H 09/06/22 05:03 Calcium 7.9 mg/dL (8.5-10.5) L 09/08/22 00:54 Magnesium 2.0 mg/dL (1.7-2.3) 09/07/22 04:54 Iron 40 ug/dL (37-145) 09/06/22 03:58 TIBC 344 mcg/dl 09/06/22 03:58 % Saturation 11.6 % (20-50) L 09/06/22 03:58 Unsat Iron Binding 304 ug/dL (112-347) 09/06/22 03:58 Total Bilirubin 0.2 mg/dL (0.15-1.2) 09/08/22 00:54 AST 16 U/L (0-32) 09/08/22 00:54 ALT < 5 U/L (0-33) 09/08/22 00:54 Alkaline Phosphatase 47 U/L (35-105) 09/08/22 00:54 C-Reactive Protein 9.8 mg/L (0.0-4.9) H 09/06/22 03:58 Total Protein 5.4 g/dL (6.6-8.7) L 09/08/22 00:54 Albumin 3.0 g/dL (3.5-5.2) L 09/08/22 00:54 Globulin 2.4 g/dL (1.3-4.6) 09/08/22 00:54 Triglycerides 181 mg/dL (0-150) H 09/07/22 04:54 Cholesterol 122 mg/dL (0-200) 09/07/22 04:54 LDL Cholesterol, Calc 45 mg/dL (50-129) L 09/07/22 04:54 Total VLDL Cholesterol 36 mg/dL (0-30) H 09/07/22 04:54 HDL Cholesterol 41 mg/dL (60-100) L 09/07/22 04:54 Cholesterol/HDL Ratio 2.98 mg/dL (0.0-4.40) 09/07/22 04:54 Lipase 17 U/L (13-60) 09/07/22 11:00 Vitamin B12 744 pg/mL (232-1245) 09/06/22 03:58 Folate 19.3 ng/mL (4.8-37.3) 09/07/22 04:54 Procalcitonin 0.30 ng/mL (0-0.5) 09/06/22 06:52 TSH 18.10 uIU/mL (0.27-4.20) H 09/06/22 03:58 Free T4 1.59 ng/dL (0.82-1.77) 09/06/22 03:58 Free T3 3.4 PG/ML (2.0-4.4) 09/06/22 03:58 Urine Color Yellow (Yellow) 09/06/22 17:00 Urine Appearance Clear (CLEAR) 09/06/22 17:00 Urine pH 5 (5-7) 09/06/22 17:00 Ur Specific [place] 1.020 (1.005-1.030) 09/06/22 17:00 Urine Protein Trace (Negative) 09/06/22 17:00 Urine Glucose (UA) Norm (Normal) 09/06/22 17:00 Urine Ketones Negative (Negative) 09/06/22 17:00 Urine Blood 3+ (Negative) H 09/06/22 17:00 Urine Nitrate Negative (Negative) 09/06/22 17:00 Urine Bilirubin 1+ (Negative) H 09/06/22 17:00 Urine Urobilinogen Norm mg/dL (Negative) 09/06/22 17:00 Ur Leukocyte Esterase Trace (Negative) H 09/06/22 17:00 Urine RBC 10-15 /hpf (0-2) H 09/06/22 17:00 Urine WBC 5-10 /hpf (0-5) H 09/06/22 17:00 Ur Squamous Epith Cells None /hpf (0-5) 09/06/22 17:00 Amorphous Sediment Not Reportable 09/06/22 17:00 Urine Bacteria 2+ /hpf (NONE) H 09/06/22 17:00 Vitals Last Vital Signs Temp 97.6 F 09/08/22 08:00 Pulse 69 09/08/22 08:00 Resp 15 09/08/22 08:00 BP 139/62 09/08/22 08:00 Pulse Ox 97 09/08/22 08:00 O2 Del Method Nasal Cannula 09/08/22 08:00 O2 Flow Rate 2 09/07/22 20:00 Discharge Plan Discharge Patient Disposition: Home Condition: Stable Prescriptions: New prednisone 10 mg tablet See Taper PO DIRECTED Qty: 20 0RF Taper: predniSONE 60-10 40 mg Daily for 2 Days and 0 Hour 30 mg Daily for 2 Days and 0 Hour 20 mg Daily for 2 Days and 0 Hour 10 mg Daily for 2 Days and 0 Hour Rx Instructions: see taper instructions Protonix 40 mg tablet,delayed release (DR/EC) 40 mg PO QAM Qty: 30 0RF Continued sulfasalazine 500 mg Tablet 1,000 mg PO BID cyanocobalamin (vitamin B-12) [Vitamin B-12] 1,000 mcg Tablet 1,000 mcg PO DAILY clopidogrel 75 mg Tablet 75 mg PO DAILY amlodipine 10 mg Tablet 10 mg PO DAILY simvastatin 5 mg Tablet 5 mg PO QPM folic acid 1 mg Tablet 1 mg PO DAILY docusate sodium 100 mg Capsule 100 mg PO BID Qty: 30 0RF mupirocin 2 % ointment 1 applic TOPICAL BID calcium carbonate 500 mg calcium (1,250 mg) Tablet 500 mg PO BID Held losartan 50 mg Tablet 50 mg PO DAILY Hold Instructions: Resume on 09/22/22. methotrexate sodium 2.5 mg Tablet See Rx Instructions .ROUTE .COMPLEX Hold Instructions: Resume on 09/22/22. Rx Instructions: TAKE SIX 2.5MG TABLETS EVERY WEEK ON Tuesday TOTAL DOSE IS 15MG WEEKLY Discharge Orders: Discharge Order (Routine); Ordered 09/08/22 Ordered By: Kojo Gutiérrez Referrals: Georgia Crwaford MD [Primary Care Provider] - 11/02/22 10:30 am (office will call with appointment sooner call if need to see a DR) Discharge Diet: Advance as tolerated and As Directed Discharge Activity: Resume usual activity and Increase activity as tolerated Patient Instructions: Bowel Obstruction, Prednisone (By mouth), Pantoprazole (By mouth), Pancreatitis (GEN), Acute Kidney Injury (GEN), Opioid Safety Activity Restrictions/Additional Instructions: Please do not take your losartan and methotraxate for next 2 weeks. Check your BP daily at home and mantain a BP diary. Follow up with your pcp in 1week for adjustment of meds. If your BP goes over 140/90 mmhg in next 2 weeks you can restart losartan sooner. Take liquid diet for next 3 days and advance gradually to softer diet in next 1 week. Take multiple small meals. Discharge Attestations Time Spent in Discharge Care*: greater than 30 min Specific Discharge Activities: educating patient, educating and/or supporting family/caregiver, discussing with pcp/other providers, discussing with case monitor/social workers/dc planners, documenting/other paperwork and evaluating patient/reviewing data Status at Discharge: Cognitive status at discharge: cognitively intact, Behavioral status at discharge: cooperative, Functional status at discharge: independent ambulation, Overall status at discharge: patient is back to baseline Quality Metrics Clinical Quality Measures [ No reported AMI, CVA or VTE this stay] Coding Level of Care Code 58724 Total time (in minutes) for Discharge: 60 Diagnoses Crohn's disease K50.90 Small bowel obstruction K56.609
[2022-09-08 10:26] VITALS: O2SAT 93; O2SAT 94
[2022-09-08 12:20] VITALS: BP 139/62; PULSE 69; RESP 15; TEMP 36.4; O2SAT 97
== END 2022-09-08 12:10 | disposition home or self-care (01) | DRG 385 ==
LOC: ER 06:04 → MEDSURG 07:32
PROVIDERS: Admitting Provider Internal Medicine; Emergency Provider Emergency Medicine; PCP Family Medicine; Visit Provider Student in an Organized Health Care Education/Training Program
DX: K50.90 Crohn's disease, unspecified, without complications (principal); K85.90 Acute pancreatitis without necrosis or infection, unspecified; E87.20 Acidosis, unspecified; K56.609 Unspecified intestinal obstruction, unspecified as to partial versus complete obstruction; N17.9 Acute kidney failure, unspecified; I10 Essential (primary) hypertension; Z79.02 Long term (current) use of antithrombotics/antiplatelets; Z87.891 Personal history of nicotine dependence; E86.0 Dehydration
CPT/HCPCS: 36415; 51702; 71045; 74177; 80053; 80061; 81001; 82607; 82746; 83036; 83540; 83550; 83605; 83690; 83735; 84145; 84439; 84443; 84481; 85025; 85651; 86140; 87040; 87086; 94664; 94760; 96365; 96372; 96375; 99285; C9113; J1644; J2270; J2405; J2543; J2920; J7030; Q9967

== ENCOUNTER 2023-04-12 23:20 | Emergency (ER) | payer MEDICARE, OTHER, SELFPAY ==
[2023-04-12 23:22] VITALS: BP 143/49; PULSE 76; RESP 16; TEMP 36.7; O2SAT 91; BMI 23.8
--- NOTE | 2023-04-12 23:34 | W.ED.FALL ---
HPI - Fall General: Chief Complaint: Fall Stated Complaint: fall Time Seen by Provider: 04/12/23 23:23 History of Present Illness: Presents to the ER by EMS with complaints of fall. Patient was on her way to the bathroom tonight when she possible had a syncopal episode and fell and become hyperextended over the toilet. Patient states she not been feeling good for the last couple days with cough congestion and diarrhea. GI bug went to the house approximately 1 week ago. Patient did get 4 mg Zofran on route per EMS. Patient was found by her family members. Patient is complaining of minimal pain in her upper back and neck at this time. Review of Systems General: Reports: 10 or more systems reviewed and unremarkable except in HPI and below PFSH ED PFSH: Medical History Crohn's disease Surgical History History of appendectomy Social History Smoking and tobacco/nicotine status: former use of tobacco/nicotine Physical Exam Const: COMMON NORMALS: no acute distress, average body habitus, patient oriented x3, no limitations, healthy appearing, alert and well nourished HENMT: COMMON NORMALS: normocephalic, atraumatic, hearing grossly normal bilaterally, external ears normal, Normal external nose present, moist oral mucous membranes and oropharynx normal HEAD & SCALP: normocephalic and atraumatic NOSE: Normal external nose present EXTERNAL EAR: Yes external ears normal Neck/C-Spine: COMMON NORMALS: full ROM, no lymphadenopathy, supple, no meningeal signs, no JVD and Thyroid normal THYROID: Thyroid normal Lymph: LYMPHATIC: no lymphadenopathy noted Chest: COMMONS NORMALS: normal inspection of the chest and normal palpation of entire chest wall Resp: COMMON NORMALS: normal respiratory effort, No retractions, No use of accessory muscles and clear to auscultation bilaterally AUSCULTATION: clear to auscultation bilaterally Cardio: COMMON NORMALS: no JVD, regular rate, regular rhythm, S1 normal heart sound present, S2 normal heart sound present, No gallops present (Cardio), No clicks present (Cardio), No murmurs present (Cardio) and No rub (Cardio) RATE: regular rate RHYTHM: regular rhythm HEART SOUNDS: S1 normal heart sound present and S2 normal heart sound present GI: COMMON NORMALS: Normal to inspection, nondistended, normoactive bowel sounds present, Soft to palpation, non-tender, No hepatosplenomegaly present and no masses PALPATION: Yes Soft to palpation and Yes No hepatosplenomegaly present Neuro: COMMON NORMALS: patient oriented x3 SENSORIUM/ORIENTATION: Yes alert MENINGEAL SIGNS: Yes no meningeal signs Course Vital Signs: Vital signs: Vital Signs Temperature 98.0 F 04/12/23 23:22 Pulse Rate 75 04/13/23 00:23 Respiratory Rate 16 04/12/23 23:22 Blood Pressure 127/42 04/13/23 00:23 Pulse Oximetry 91 04/13/23 00:23 Oxygen Delivery Me thod Room Air 04/13/23 00:23 MDM - Fall Medical Decision Making Patient went to the bathroom and had a syncopal episode. Patient was then found laid out over the toilet and complained of having mild neck and upper back pain. These areas were x-rayed and CT scan patient had lab work that included CBC CMP magnesium and EKG. All of which are essentially benign or stable for the patient. Patient be discharged home with a diagnosis of syncope and is to follow-up with her family doctor within the next 7 to 10 days for further evaluation and treatment. Differential Diagnosis Likely syncope; Unlikely dislocation of shoulder region, fracture of wrist, compression fracture, concussion with loss of consciousness or concussion without loss of consciousness Medical Records I reviewed the patient's medical records. Lab Data I reviewed the patient's lab results. 04/13/23 00:33 04/13/23 00:33 Radiology Impressions Cervical Spine X-Ray 04/12/23 23:35 IMPRESSION: Suboptimal study as the complete C5, C6, C7 and T1 vertebral bodies are not visualized. The visualized vertebral bodies are within normal limits. Recommend clinical correlation and cross-sectional imaging as indicated. ADDENDUM: 04/13/23 0038 The findings were verbally communicated via telephone conference with Dr. Barajas at 12:36 AM COLLEGE COACH on 04/13/2023. The findings were acknowledged and understood. Thoracic Spine X-Ray 04/12/23 23:35 IMPRESSION: Unremarkable thoracic vertebrae. Irregularity of the L5 vertebral body, recommend lumbar spine series for better evaluation. Cervical Spine CT 04/13/23 00:41 IMPRESSION: No acute findings. Laboratory Results WBC 5.60 10^3/uL (3.29-11.43) 04/13/23 00:33 RBC 3.11 10^6/uL (3.85-5.65) L 04/13/23 00:33 Hgb 9.80 g/dL (11.27-16.99) L 04/13/23 00:33 Hct 31.8 % (36-47) L 04/13/23 00:33 MCV 102.3 fl (85-98) H 04/13/23 00:33 MCH 31.5 pg (27-33) 04/13/23 00:33 MCHC 30.8 g/dL (30-55) 04/13/23 00:33 RDW 13.7 % (12.1-15.1) 04/13/23 00:33 Plt Count 143 10^3/cmm (157-399) L 04/13/23 00:33 MPV 9.8 fL (7.4-10.4) 04/13/23 00:33 Neut % (Auto) 80.8 % 04/13/23 00:33 Lymph % (Auto) 8.8 % 04/13/23 00:33 [place] % (Auto) 10.0 % 04/13/23 00:33 Eos % (Auto) 0.0 % 04/13/23 00:33 Baso % (Auto) 0.2 % 04/13/23 00:33 Neut # (Auto) 4.53 10^3/uL (1.8-7.7) 04/13/23 00:33 Lymph # (Auto) 0.5 10^3/uL (0.8-4.8) L 04/13/23 00:33 [place] # (Auto) 0.6 10^3/uL (0.2-0.9) 04/13/23 00:33 Eos # (Auto) 0.0 10^3/uL (0.0-0.8) 04/13/23 00:33 Baso # (Auto) 0.0 10^3/uL (0.0-0.1) 04/13/23 00:33 Nucleated RBC % (auto) 0 % 04/13/23 00:33 Nucleated RBCs # 0.0 /100WBC 04/13/23 00:33 Sodium 135 mmol/L (136-145) L 04/13/23 00:33 Potassium 3.5 mmol/L (3.5-5.1) 04/13/23 00:33 Chloride 100 mmol/L (98-107) 04/13/23 00:33 Carbon Dioxide 26 mmol/L (22-29) 04/13/23 00:33 Anion Gap 12.5 (5-19) 04/13/23 00:33 BUN 10 mg/dL (8-23) 04/13/23 00:33 Creatinine 0.9 mg/dL (0.5-0.9) 04/13/23 00:33 GFR Calculation Not Reportable 04/13/23 00:33 Glucose 106 mg/dL (65-115) 04/13/23 00:33 Calculated Osmolality 279 mOsm/kg (285-295) L 04/13/23 00:33 Calcium 8.2 mg/dL (8.5-10.5) L 04/13/23 00:33 Magnesium 1.7 mg/dL (1.7-2.3) 04/13/23 00:33 Total Bilirubin 0.2 mg/dL (0.15-1.2) 04/13/23 00:33 AST 19 U/L (0-32) 04/13/23 00:33 ALT < 5 U/L (0-33) 04/13/23 00:33 Alkaline Phosphatase 51 U/L (35-105) 04/13/23 00:33 Total Protein 5.8 g/dL (6.6-8.7) L 04/13/23 00:33 Albumin 3.5 g/dL (3.5-5.2) 04/13/23 00:33 Globulin 2.3 g/dL (1.3-4.6) 04/13/23 00:33 All radiology interpretation(s) finalized by discharge EKG Data EKG 1: I personally reviewed and interpreted this EKG as follows: EKG interpretation date: 04/12/23 EKG interpretation time: 23:46 Prior EKG tracings: not available for review Interpretation: EKG showed ventricular rate 77 beats minute, [place] interval 177, QRS duration 92, QTc of 351, sinus rhythm with occasional PVC, Discharge Plan Discharge Patient Disposition: Home Clinical Impression: Syncope, Anemia Condition: Stable Prescriptions: No Action losartan 50 mg Tablet 50 mg PO DAILY Hold Instructions: Resume on 09/22/22. sulfasalazine 500 mg Tablet 1,000 mg PO BID cyanocobalamin (vitamin B-12) [Vitamin B-12] 1,000 mcg Tablet 1,000 mcg PO DAILY clopidogrel 75 mg Tablet 75 mg PO DAILY methotrexate sodium 2.5 mg Tablet See Rx Instructions .ROUTE .COMPLEX Hold Instructions: Resume on 09/22/22. Rx Instructions: TAKE SIX 2.5MG TABLETS EVERY WEEK ON Tuesday TOTAL DOSE IS 15MG WEEKLY amlodipine 10 mg Tablet 10 mg PO DAILY simvastatin 5 mg Tablet 5 mg PO QPM folic acid 1 mg Tablet 1 mg PO DAILY docusate sodium 100 mg Capsule 100 mg PO BID Qty: 30 0RF mupirocin 2 % ointment 1 applic TOPICAL BID calcium carbonate 500 mg calcium (1,250 mg) Tablet 500 mg PO BID prednisone 10 mg tablet See Taper PO DIRECTED Qty: 20 0RF Taper: predniSONE 60-10 40 mg Daily for 2 Days and 0 Hour 30 mg Daily for 2 Days and 0 Hour 20 mg Daily for 2 Days and 0 Hour 10 mg Daily for 2 Days and 0 Hour Rx Instructions: see taper instructions Protonix 40 mg tablet,delayed release (DR/EC) 40 mg PO QAM Qty: 30 0RF Discharge Orders: Discharge ED (Routine); Ordered 04/13/23 Ordered By: Ehsan Barajas Referrals: Georgia Crawford MD [Primary Care Provider] - 1 week Patient Instructions: Syncope in Older Adults (ED), Anemia (ED) Coding Level of Care Code ED Neonatal Nurse Practitioner for Familia Mcdonald
--- NOTE | 2023-04-12 23:35 | XRR_ITS ---
PROCEDURE INFORMATION: Exam: XR Cervical Spine Exam date and time: 04/12/2023 11:50 PM Age: 88 years old Clinical indication: Injury or trauma; Blunt trauma; Injury details: Fall from toilet, patient seems alert and answers questions and denies pain; Additional info: Fall pain TECHNIQUE: Imaging protocol: Radiologic exam of the cervical spine. Views: 2 or 3 views. COMPARISON: CR XR chest 1V portable [id number] 09/06/2022 7:52 AM FINDINGS: Bones/joints: Suboptimal study as only the top of C5 is visualized. No acute fracture in the visualized cervical vertebrae. Normal alignment. Old healed right clavicular fracture. Soft tissues: Unremarkable. XR/XR cervical spine 3V* [id number] IMPRESSION: Suboptimal study as the complete C5, C6, C7 and T1 vertebral bodies are not visualized. The visualized vertebral bodies are within normal limits. Recommend clinical correlation and cross-sectional imaging as indicated.
--- NOTE | 2023-04-12 23:35 | XRR_ITS ---
PROCEDURE INFORMATION: Exam: XR Thoracic Spine Exam date and time: 04/12/2023 11:58 PM Age: 88 years old Clinical indication: Injury or trauma; Blunt trauma (contusions or hematomas); Patient HX: Fall from toilet, patient seems alert and answers questions and denies pain; Additional info: Fall pain TECHNIQUE: Imaging protocol: Radiologic exam of the thoracic spine. Views: 3 views. COMPARISON: CR (NECK, ) 04/12/2023 11:50 PM FINDINGS: Bones/joints: Generalized osteopenia. No acute fracture. Normal alignment. Mild dextroscoliosis of the lower thoracic vertebrae. The L5 vertebral body there is a cortical irregularity with poor visualization of the right pedicle, recommend lumbar series for better evaluation. Soft tissues: Unremarkable. Pericardial the visualized lung lock are unremarkable. XR/XR thoracic spine 2V [id number] IMPRESSION: Unremarkable thoracic vertebrae. Irregularity of the L5 vertebral body, recommend lumbar spine series for better evaluation.
--- NOTE | 2023-04-12 23:46 | ECG_ITS ---
[facility] Test Date: 2023-04-12 Pat Name: Letitia Singh Department: Room: Gender: Female Prescription Benefit Specialist: : [id number] Requested By: Ehsan Barajas Order Number: [id number] Argenis MD: Octavia Taylor M.D. Measurements Intervals [place] Rate: 77 P: 72 MO: 177 QRS: -2 QRSD: 92 T: -17 QT: 319 QTc: 362 Interpretive Statements SINUS RHYTHM WITH OCCASIONAL SUPRAVENTRICULAR PREMATURE COMPLEXES LOW QRS VOLTAGE IN PRECORDIAL LEADS [QRS DEFLECTION < 1.0 mV IN CHEST LEADS] MINIMAL VOLTAGE CRITERIA FOR LVH, CONSIDER NORMAL VARIANT [MEETS CRITERIA IN ONE OF: R(aVL), S(V1), R(V5), R(V5/V6)+S(V1)] SEPTAL MYOCARDIAL INFARCTION , PROBABLY OLD [40+ ms Q WAVE IN V1/V2] Compared to ECG 08/09/2019 06:05:18 Myocardial infarct finding now present T-wave abnormality no longer present Electronically Signed On 04-12-2023 23:55:45 QM CONSULTANT by Octavia Taylor M.D. [id number]
[2023-04-13 00:23] VITALS: BP 127/42; PULSE 75; O2SAT 91
--- NOTE | 2023-04-13 00:41 | CTR_ITS ---
PROCEDURE INFORMATION: Exam: CT Cervical Spine Without Contrast Exam date and time: 04/13/2023 12:50 AM Age: 88 years old Clinical indication: Injury or trauma; Blunt trauma; Patient HX: Fall from toilet, patient seems alert and answers questions and denies pain; Additional info: Fall pain, incomplete visualization on xray TECHNIQUE: Imaging protocol: Computed tomography of the cervical spine without contrast. Radiation optimization: All CT scans at this facility use at least one of these dose optimization techniques: automated exposure control; mA and/or kV adjustment per patient size (includes targeted exams where dose is matched to clinical indication); or iterative reconstruction. REPORTING DATA: Count of CT and Cardiac NM exams in prior 12 months: This patient has received [address] and 0 known cardiac nuclear medicine studies in the 12 months prior to the current study. COMPARISON: CR (NECK, ) 04/12/2023 11:50 PM RADIATION DOSE METRICS: Total DLP (mGy-cm): 181.87 FINDINGS: Bones/joints: No acute fracture. Normal alignment. No significant disc bulge or herniation. No severe spinal canal stenosis. No significant neural foraminal narrowing. There is a grade 1 anterolisthesis of C5 on C6 with no significant indentation on the spinal canal. Lungs: Lung apices are normal. Soft tissues: Unremarkable. There is atherosclerotic disease. CT/CT cervical spin wo con* [id number] IMPRESSION: No acute findings.
[2023-04-13 00:43] LABS: Basophils % 0.2 %; Hematocrit 31.8 % (36-47); Lymphocytes # 0.5 10^3/uL (0.8-4.8); Lymphocytes % 8.8 %; Mean Corpuscular HGB Conc 30.8 g/dL (30-55); Mean Corpuscular Hemoglobin 31.5 pg (27-33); Mean Corpuscular Volume 102.3 fl (85-98); Mean Platelet Volume 9.8 fL (7.4-10.4); Monocytes # 0.6 10^3/uL (0.2-0.9); Neutrophils # 4.53 10^3/uL (1.8-7.7); Neutrophils % 80.8 %; Nucleated Red Blood Cells % 0 %; Platelet Count 143 10^3/cmm (157-399); Red Blood Count 3.11 10^6/uL (3.85-5.65); Red Cell Distribution Width 13.7 % (12.1-15.1)
[2023-04-13 01:08] LABS: Alanine Aminotransferase < 5 U/L (0-33); Albumin Level 3.5 g/dL (3.5-5.2); Alkaline Phosphatase 51 U/L (35-105); Anion Gap 12.5 (5-19); Aspartate Amino Transferase 19 U/L (0-32); Blood Urea Nitrogen 10 mg/dL (8-23); Calcium 8.2 mg/dL (8.5-10.5); Carbon Dioxide 26 mmol/L (22-29); Chloride 100 mmol/L (98-107); Globulin 2.3 g/dL (1.3-4.6); Glucose 106 mg/dL (65-115); Magnesium 1.7 mg/dL (1.7-2.3); Osmolality Calculated 279 mOsm/kg (285-295); Potassium 3.5 mmol/L (3.5-5.1); Sodium 135 mmol/L (136-145); Total Bilirubin 0.2 mg/dL (0.15-1.2); Total Protein 5.8 g/dL (6.6-8.7)
[2023-04-13 02:07] VITALS: BP 131/49; PULSE 79; RESP 16; O2SAT 92
== END 2023-04-13 02:05 | disposition home or self-care (01) ==
PROVIDERS: Emergency Provider Emergency Medicine; PCP Family Medicine
DX: R55 Syncope and collapse (principal); D64.9 Anemia, unspecified; Z79.02 Long term (current) use of antithrombotics/antiplatelets; Z87.891 Personal history of nicotine dependence
CPT/HCPCS: 36415; 72040; 72070; 72125; 80053; 83735; 85025; 93005; 99285

== ENCOUNTER 2024-10-12 10:05 | Inpatient (IN) | payer MEDICARE, OTHER, SELFPAY ==
[2024-10-12] VITALS (16 sets, daily range): BP systolic 158–241; BP diastolic 72–113; PULSE 72–106; RESP 16–18; TEMP 36.7; O2SAT 91–97; BMI 19.3
[2024-10-12 11:03] LABS: Basophils % 0.3 %; Eosinophils # 0.1 10^3/uL (0.0-0.8); Eosinophils % 1.2 %; Lymphocytes # 0.7 10^3/uL (0.8-4.8); Lymphocytes % 7.5 %; Mean Corpuscular HGB Conc 31.3 g/dL (30-55); Mean Corpuscular Hemoglobin 32.2 pg (27-33); Mean Platelet Volume 8.9 fL (7.4-10.4); Monocytes # 0.4 10^3/uL (0.2-0.9); Monocytes % 4.4 %; Neutrophils # 8.44 10^3/uL (1.8-7.7); Neutrophils % 85.4 %; Nucleated Red Blood Cells % 0 %; Platelet Count 275 10^3/cmm (157-399); Red Blood Count 3.69 10^6/uL (3.85-5.65); Red Cell Distribution Width 15.1 % (12.1-15.1); White Blood Count 9.88 10^3/uL (3.29-11.43)
[2024-10-12 11:27] LABS: Lactic Sepsis W/Reflex 2.1 mmol/L (0.5-2.2)
[2024-10-12 11:29] LABS: Alanine Aminotransferase 8 U/L (0-33); Alkaline Phosphatase 53 U/L (35-105); Anion Gap 19.2 (5-19); Aspartate Amino Transferase 16 U/L (0-32); Blood Urea Nitrogen 14 mg/dL (8-23); Calcium 9.2 mg/dL (8.5-10.5); Carbon Dioxide 22 mmol/L (22-29); Chloride 103 mmol/L (98-107); Creatinine Clr Calc Pharmacy 38.7996; Globulin 2.5 g/dL (1.3-4.6); Glucose 102 mg/dL (65-115); Lipase 29 U/L (13-60); Osmolality Calculated 293 mOsm/kg (285-295); Potassium 3.2 mmol/L (3.5-5.1); Sodium 141 mmol/L (136-145); Total Bilirubin 0.4 mg/dL (0.15-1.2); Total Protein 6.5 g/dL (6.6-8.7)
--- NOTE | 2024-10-12 12:15 | W.ED.ABDPA2 ---
HPI - Abdominal Pain General: Chief Complaint: Abdominal Pain Stated Complaint: abd pain Time Seen by Provider: 10/12/24 12:03 History of Present Illness: 89-year-old female presents emergency room complaining of constipation x 6 days. Patient has a history of Crohn's. No bloody diarrhea. No nausea or vomiting. Pain has resolved at this point. Associated Symptoms: Reports nausea and vomiting; Denies chills, dysuria and fever(s) Related Data Home Medications ?Medication ?Instructions ?Recorded ?Confirmed amlodipine 10 mg tablet 10 mg PO DAILY 08/11/19 08/23/23 clopidogrel 75 mg tablet 75 mg PO DAILY 08/11/19 08/23/23 cyanocobalamin (vitamin B-12) 1,000 mcg PO DAILY 08/11/19 08/23/23 1,000 mcg tablet (Vitamin B-12) folic acid 1 mg tablet 1 mg PO DAILY 08/11/19 08/23/23 losartan 50 mg tablet 50 mg PO DAILY 08/11/19 08/23/23 Held on 09/08/22. Instructions: Resume on 09/22/22. methotrexate sodium 2.5 mg tablet See Rx Instructions .Route .COMPLEX 08/11/19 08/23/23 Held on 09/08/22. Instructions: Resume on 09/22/22. simvastatin 5 mg tablet 5 mg PO QPM 08/11/19 08/23/23 sulfasalazine 500 mg tablet 1,000 mg PO BID 08/11/19 08/23/23 calcium carbonate 500 mg PO BID 09/06/22 08/23/23 mupirocin 2 % topical ointment 1 applic topical BID 09/06/22 08/23/23 Previous Rx's ?Medication ?Instructions ?Recorded docusate sodium 100 mg capsule 100 mg PO BID #30 caps 08/11/19 pantoprazole 40 mg tablet,delayed 40 mg PO QAM #30 tabs 09/08/22 release (Protonix) ondansetron 4 mg disintegrating 4 mg PO Q8H #20 tabs 08/23/23 tablet prednisone 10 mg tablet See Taper PO DIRECTED #20 tabs 08/23/23 Allergies Allergy/AdvReac Type Severity Reaction Status Date / Time hydrochlorothiazide Allergy Unknown Verified 08/23/23 12:29 Review of Systems Const: Denies: fever(s) or chills Card: Denies: chest pain Resp: Denies: dyspnea GI: Reports: abdominal pain, nausea and vomiting : Denies: dysuria, urinary frequency or urinary urgency Musc: Denies: neck pain or back pain Skin/Breast: Denies: rash PFSH ED PFSH: Medical History Crohn's disease Surgical History History of appendectomy Social History Smoking and tobacco/nicotine status: former use of tobacco/nicotine Physical Exam Const: COMMON NORMALS: no acute distress GENERAL APPEARANCE: cooperative and comfortable ORIENTATION/CONSCIOUSNESS: Yes awake, Yes oriented to person, Yes oriented to place and Yes oriented to time HENMT: COMMON NORMALS: normocephalic, atraumatic and hearing grossly normal bilaterally HEAD & SCALP: normocephalic and atraumatic Resp: COMMON NORMALS: normal respiratory effort, No retractions, No use of accessory muscles and clear to auscultation bilaterally AUSCULTATION: clear to auscultation bilaterally Cardio: COMMON NORMALS: regular rate, regular rhythm and No murmurs present (Cardio) RATE: regular rate RHYTHM: regular rhythm GI: COMMON NORMALS: Soft to palpation and No hepatosplenomegaly present AUSCULTATION: Yes normoactive bowel sounds PALPATION: Yes Soft to palpation, No Tenderness to palpation present (GI), No Guarding due to palpation present (GI) and Yes No hepatosplenomegaly present Extremity: COMMON NORMALS: normal to inspection, capillary refill normal, no clubbing, cyanosis or edema, no calf tenderness and no pedal edema Neuro: SENSORIUM/ORIENTATION: Yes oriented to person, Yes oriented to place and Yes oriented to time Skin: COMMON NORMALS: no rashes or lesions noted GENERAL SKIN EXAM: no rashes or lesions noted Course Vital Signs: Vital signs: Vital Signs Temperature 98.0 F 10/12/24 10:06 Pulse Rate 106 H 10/12/24 10:06 Respiratory Rate 16 10/12/24 10:06 Blood Pressure 177/76 10/12/24 10:15 Pulse Oximetry 95 10/12/24 10:06 Oxygen Delivery Me thod Room Air 10/12/24 10:06 MDM - Abdominal Pain Lab Data 10/12/24 10:56 10/12/24 10:56 Labs/Radiology: Radiology Impressions Abdomen/Pelvis CT 10/12/24 12:30 IMPRESSION: 1. Prominent enteritis involving the ileum causing small bowel obstruction. The findings were quite similar on 09/06/2022. 2. Cholelithiasis Laboratory Results WBC 9.88 10^3/uL (3.29-11.43) 10/12/24 10:56 RBC 3.69 10^6/uL (3.85-5.65) L 10/12/24 10:56 Hgb 11.90 g/dL (11.27-16.99) 10/12/24 10:56 Hct 38.0 % (36-47) 10/12/24 10:56 MCV 103.0 fl (85-98) H 10/12/24 10:56 MCH 32.2 pg (27-33) 10/12/24 10:56 MCHC 31.3 g/dL (30-55) 10/12/24 10:56 RDW 15.1 % (12.1-15.1) 10/12/24 10:56 Plt Count 275 10^3/cmm (157-399) 10/12/24 10:56 MPV 8.9 fL (7.4-10.4) 10/12/24 10:56 Neut % (Auto) 85.4 % 10/12/24 10:56 Lymph % (Auto) 7.5 % 10/12/24 10:56 [place] % (Auto) 4.4 % 10/12/24 10:56 Eos % (Auto) 1.2 % 10/12/24 10:56 Baso % (Auto) 0.3 % 10/12/24 10:56 Neut # (Auto) 8.44 10^3/uL (1.8-7.7) H 10/12/24 10:56 Lymph # (Auto) 0.7 10^3/uL (0.8-4.8) L 10/12/24 10:56 [place] # (Auto) 0.4 10^3/uL (0.2-0.9) 10/12/24 10:56 Eos # (Auto) 0.1 10^3/uL (0.0-0.8) 10/12/24 10:56 Baso # (Auto) 0.0 10^3/uL (0.0-0.1) 10/12/24 10:56 Nucleated RBC % (auto) 0 % 10/12/24 10:56 Nucleated RBCs # 0.0 /100WBC 10/12/24 10:56 Sodium 141 mmol/L (136-145) 10/12/24 10:56 Potassium 3.2 mmol/L (3.5-5.1) L 10/12/24 10:56 Chloride 103 mmol/L (98-107) 10/12/24 10:56 Carbon Dioxide 22 mmol/L (22-29) 10/12/24 10:56 Anion Gap 19.2 (5-19) H 10/12/24 10:56 BUN 14 mg/dL (8-23) 10/12/24 10:56 Creatinine 0.8 mg/dL (0.5-0.9) 10/12/24 10:56 GFR Calculation Not Reportable 10/12/24 10:56 Glucose 102 mg/dL (65-115) 10/12/24 10:56 Calculated Osmolality 293 mOsm/kg (285-295) 10/12/24 10:56 Lactic Acid 2.1 mmol/L (0.5-2.2) 10/12/24 10:56 Lactic Acid (Sepsis) 1.0 mmol/L (0.5-2.2) 10/12/24 13:59 Calcium 9.2 mg/dL (8.5-10.5) 10/12/24 10:56 Total Bilirubin 0.4 mg/dL (0.15-1.2) 10/12/24 10:56 AST 16 U/L (0-32) 10/12/24 10:56 ALT 8 U/L (0-33) 10/12/24 10:56 Alkaline Phosphatase 53 U/L (35-105) 10/12/24 10:56 Total Protein 6.5 g/dL (6.6-8.7) L 10/12/24 10:56 Albumin 4.0 g/dL (3.5-5.2) 10/12/24 10:56 Globulin 2.5 g/dL (1.3-4.6) 10/12/24 10:56 Lipase 29 U/L (13-60) 10/12/24 10:56 Urine Color Yellow (Yellow) 10/12/24 13:40 Urine Appearance Clear (CLEAR) 10/12/24 13:40 Urine pH 6.0 (5-7) 10/12/24 13:40 Ur Specific [place] 1.053 (1.005-1.030) H 10/12/24 13:40 Urine Protein Negative (Negative) 10/12/24 13:40 Urine Glucose (UA) Negative (Normal) 10/12/24 13:40 Urine Ketones Negative (Negative) 10/12/24 13:40 Urine Blood Negative (Negative) 10/12/24 13:40 Urine Nitrate Negative (Negative) 10/12/24 13:40 Urine Bilirubin Negative (Negative) 10/12/24 13:40 Urine Urobilinogen 1.0 mg/dL (Negative) 10/12/24 13:40 Ur Leukocyte Esterase Negative (Negative) 10/12/24 13:40 Urine RBC 0-2 /hpf (0-2) 10/12/24 13:40 Urine WBC 0-5 /hpf (0-5) 10/12/24 13:40 Ur Squamous Epith Cells 0-5 /hpf (0-5) 10/12/24 13:40 Amorphous Sediment Not Reportable 10/12/24 13:40 Urine Bacteria None seen /hpf (NONE) 10/12/24 13:40 Hyaline Casts 0-4 /lpf H 10/12/24 13:40 Discharge Plan Discharge Condition: Stable Prescriptions: No Action ondansetron 4 mg tablet,disintegrating 4 mg PO Q8H Qty: 20 0RF prednisone 10 mg tablet See Taper PO DIRECTED Qty: 20 0RF Taper: predniSONE 60-10 40 mg Daily for 2 Days and 0 Hour 30 mg Daily for 2 Days and 0 Hour 20 mg Daily for 2 Days and 0 Hour 10 mg Daily for 2 Days and 0 Hour Rx Instructions: 40 mg 2 days 30 mg 2 days 20 mg 2 days 10 mg 2days losartan 50 mg Tablet 50 mg PO DAILY sulfasalazine 500 mg Tablet 1,000 mg PO BID cyanocobalamin (vitamin B-12) [Vitamin B-12] 1,000 mcg Tablet 1,000 mcg PO DAILY clopidogrel 75 mg Tablet 75 mg PO DAILY methotrexate sodium 2.5 mg Tablet See Rx Instructions .ROUTE .COMPLEX Rx Instructions: TAKE SIX 2.5MG TABLETS EVERY WEEK ON Tuesday TOTAL DOSE IS 15MG WEEKLY amlodipine 10 mg Tablet 10 mg PO DAILY simvastatin 5 mg Tablet 5 mg PO QPM folic acid 1 mg Tablet 1 mg PO DAILY docusate sodium 100 mg Capsule 100 mg PO BID Qty: 30 0RF mupirocin 2 % ointment 1 applic TOPICAL BID calcium carbonate 500 mg calcium (1,250 mg) Tablet 500 mg PO BID Protonix 40 mg tablet,delayed release (DR/EC) 40 mg PO QAM Qty: 30 0RF Referrals: Aries,Rosario, TECHNOLOGY ENGINEER [Primary Care Provider, Nurse Practitioner] Print Language: Sammarinese Coding Level of Care Code ED Cash Clerk for Familia Mcdonald
--- NOTE | 2024-10-12 12:30 | CTR_ITS ---
PROCEDURE INFORMATION: Exam: CT Abdomen And Pelvis With Contrast Exam date and time: 10/12/2024 12:51 PM Age: 89 years old Clinical indication: Abdominal pain; Generalized; Patient reports she has HX of crohn's and has had constipation x 6 days. Patient reports having severe abd pain. Patient had diarrhea today but states her abd hurt worse. Patient has tried stool softener and suppository. Denies n/v. Pain resolved at this time. TECHNIQUE: Imaging protocol: Computed tomography of the abdomen and pelvis with contrast. Radiation optimization: All CT scans at this facility use at least one of these dose optimization techniques: automated exposure control; mA and/or kV adjustment per patient size (includes targeted exams where dose is matched to clinical indication); or iterative reconstruction. Contrast material: OMNI 350; Contrast volume: 100 ml; Contrast route: INTRAVENOUS (IV); COMPARISON: CT abdomen pelvis w con* [id number] 09/06/2022 4:40 AM RADIATION DOSE METRICS: Total DLP (mGy-cm): 375.92 FINDINGS: Lungs: Lung bases are clear. No pleural effusion. Liver: Normal. No mass. Gallbladder and biliary ducts: Multiple gallstones are noted in the gallbladder but the gallbladder does not appear inflamed and demonstrates normal wall thickness. Pancreas: Normal. No ductal dilation. Spleen: Normal. No splenomegaly. Adrenal glands: Normal. No mass. Kidneys and ureters: Normal. No hydronephrosis. Stomach and bowel: There is prominent distension involving the small bowel down to the ileocecal valve. In addition, there is prominent wall inflammation and enhancement within the ileum. The colon demonstrates no distension. Several diverticula involve the sigmoid and descending colon. Appendix: No evidence of appendicitis. Intraperitoneal space: Unremarkable. No free air. No significant fluid collection. Vasculature: Unremarkable. No abdominal aortic aneurysm. Lymph nodes: Unremarkable. No enlarged lymph nodes. Urinary bladder: Unremarkable as visualized. Reproductive: Unremarkable as visualized. Bones/joints: Unremarkable. No acute fracture. Soft tissues: Unremarkable. CT/CT abdomen pelvis w con* [id number] IMPRESSION: 1. Prominent enteritis involving the ileum causing small bowel obstruction. The findings were quite similar on 09/06/2022. 2. Cholelithiasis
[2024-10-12 12:47] LABS: Reflex Lactate Order REFLEX LACTIC ORDERD
[2024-10-12] MEDS: iohexol 350 mg/mL 500 mL Btl (per mL) IV (12:54)
[2024-10-12] MEDS: sodium chloride 0.9% 500 ML 999 ML IV (13:29)
[2024-10-12 14:21] LABS: Bilirubin Urine Negative (Negative); Blood Urine Negative (Negative); Glucose Urine UA Negative (Normal); Ketones Urine Negative (Negative); Leukocyte Esterase Urine Negative (Negative); Nitrate Urine Negative (Negative); Protein Urine Negative (Negative); Urine Appearance Clear (CLEAR); Urine Color Yellow (Yellow)
[2024-10-12 14:23] LABS: Add Urine Microscopic? YES; Bacteria Urine None Seen /hpf; Hyaline Casts Urine 0-4 /lpf; RBC Urine 0-2 /hpf (0-2); Squamous Epithelial Cell Urine 0-5 /hpf (0-5); WBC Urine 0-5 /hpf (0-5)
[2024-10-12 14:24] LABS: Specific Gravity, Urine 1.053 (1.005-1.030)
[2024-10-12 14:25] LABS: Add Urine Culture? No
--- NOTE | 2024-10-12 15:06 | PM.CONSULT ---
Providers/Reason For Consult Consulting Physician/Specialty*: General Surgery Reason for Consult*: Small bowel obstruction Primary Care Provider: ALEXI Awan History of Present Illness History of Present Illness Letitia Singh is a 89 year old female Who presents to the hospital complaining of abdominal pain and obstipation. She has history of Crohn's disease has had previous episode of a small bowel obstruction due to terminal ileitis. During this admission her vitals are stable although she is Slightly tachycardic. Laboratory workup shows a normal white count. CT of the abdomen pelvis show evidence of a small bowel obstruction with a transition point in the terminal ileum where severe terminal ileitis is noted.According to the patient she is having small bowel movements but she does have significant increase in abdominal pain and bloating. No nausea or vomit. Review of Systems General: Reports: 10 or more systems reviewed and unremarkable except in HPI and below Medications/Allergies Home Medications ?Medication ?Instructions ?Recorded ?Confirmed ?Last Taken ?Type amlodipine 10 mg tablet 10 mg PO DAILY 08/11/19 08/23/23 09/05/22 History clopidogrel 75 mg tablet 75 mg PO DAILY 08/11/19 08/23/23 09/05/22 History cyanocobalamin (vitamin B-12) 1,000 mcg PO DAILY 08/11/19 08/23/23 09/05/22 History 1,000 mcg tablet (Vitamin B-12) docusate sodium 100 mg capsule 100 mg PO BID #30 caps 08/11/19 08/23/23 09/05/22 Rx folic acid 1 mg tablet 1 mg PO DAILY 08/11/19 08/23/23 09/05/22 History losartan 50 mg tablet 50 mg PO DAILY 08/11/19 08/23/23 09/05/22 History Held on 09/08/22. Instructions: Resume on 09/22/22. methotrexate sodium 2.5 mg tablet See Rx Instructions .Route .COMPLEX 08/11/19 08/23/23 08/31/22 History Held on 09/08/22. Instructions: Resume on 09/22/22. simvastatin 5 mg tablet 5 mg PO QPM 08/11/19 08/23/23 09/05/22 History sulfasalazine 500 mg tablet 1,000 mg PO BID 08/11/19 08/23/23 09/05/22 History calcium carbonate 500 mg PO BID 09/06/22 08/23/23 09/05/22 History mupirocin 2 % topical ointment 1 applic topical BID 09/06/22 08/23/23 Unknown History pantoprazole 40 mg tablet,delayed 40 mg PO QAM #30 tabs 09/08/22 08/23/23 Unknown Rx release (Protonix) ondansetron 4 mg disintegrating 4 mg PO Q8H #20 tabs 08/23/23 08/23/23 Unknown Rx tablet prednisone 10 mg tablet See Taper PO DIRECTED #20 tabs 08/23/23 08/23/23 Unknown Rx Allergies Allergy/AdvReac Type Severity Reaction Status Date / Time hydrochlorothiazide Allergy Unknown Verified 08/23/23 12:29 PFSH Acute PFSH: Medical History Crohn's disease Surgical History History of appendectomy Social History Smoking and tobacco/nicotine status: former use of tobacco/nicotine Vitals/I&O/Wt Last Vital Signs Temp 98.0 F 10/12/24 10:06 Pulse 106 H 10/12/24 10:06 Resp 16 10/12/24 10:06 BP 177/76 10/12/24 10:15 Pulse Ox 95 10/12/24 10:06 O2 Del Method Room Air 10/12/24 10:06 Weight last 48 hrs Weight 113 lb Physical Exam GI: OTHER: The abdominal examination is benign the abdomen is soft Minimally tender minimally distended. The bedsideBowel sounds are decreased Data 10/12/24 10:56 10/12/24 10:56 A&P Assessment and plan (1) Crohn's disease: (2) Bowel obstruction: Plan This 89-year-old female with terminal ileitis and associated small bowel obstruction in the setting of known Crohn's disease. Patient will be initiated in conservative management for SBO include NG tube decompression and IV steroids. I have explained to the patient that in the case of failure to improve we should not will need to explore alternatives that may include transfer to higher level of care for evaluation by GI for possible anti-TNF infusion versus the possibility of surgery as last resort. I have explained to her that in the case of surgery she most likely will end up with a loop or terminal ileostomy as proceeding with a primary anastomosis in the setting of active Crohn's disease can lead to a leak. She has Explained to me that she would wantTo do everything possible to avoid the possibility of surgery and at this point in time she would not consider surgical intervention. I have explained to the patient that we will respect her decision but at this point we do expect conservative management to be effective and we will reconvene regarding possibility of surgery only in the case of failure of therapy. -NG tube for decompression, Keep NG tube to low Intermittent wall suction -IV steroids as guided by medical team -In the case of lack of improvement may consider the possibility of transfer to higher level of care for anti-TNF infusion -General Surgery will continue to monitor PDMP PDMP Reviewed: Not Reviewed Coding Level of Care Code Acute Code for Chg Fwd Diagnoses Crohn's disease of large intestine with rectal bleeding K50.111 Digestive disease complication type: with rectal bleeding Gastrointestinal tract location: large intestine Bowel obstruction K56.609
[2024-10-12] MEDS: labetalol 5 mg/mL SDV 20mL 10 MG IVP (15:28)
--- NOTE | 2024-10-12 16:01 | PM.HP ---
Providers/Chief Complaint Admitting Physician: Hailee Spap Primary Care Provider: ALEXI Awan Chief Complaint: abd pain History of Present Illness Letitia Singh is a 89 year old female with Crohn's disease, hypertension, hyperlipidemia, GERD presenting with abdominal cramping. She did not have a bowel movement for few days but did have one this morning. She passed liquid stool today in the ED. She denies any hematochezia or melena. She denies fever or chills. She has had some nausea and vomiting. She has had a prior history of SBO secondary to her Crohn's disease. This was treated medically. CT abdomen pelvis today showed ileitis with SBO. General surgery was consulted in the ED and recommended IV steroids. Review of Systems General: Reports: 10 or more systems reviewed and unremarkable except in HPI and below Const: Denies: fever(s) or chills Eyes: Denies: change in vision ENMT: Denies: throat pain Card: Denies: chest pain, palpitations or dyspnea on exertion Resp: Denies: productive cough GI: Reports: abdominal pain, nausea, vomiting and constipation; Denies: hematemesis, hematochezia or melena : Denies: flank pain, difficulty voiding or dysuria Musc: Denies: neck pain or back pain Skin/Breast: Denies: rash, pruritus or erythema Neuro: Denies: headache(s) Zeke/Lymph: Denies: easy bruising or easy bleeding All/Imm: Denies: urticaria Medications/Allergies Home Medications ?Medication ?Instructions ?Recorded ?Confirmed ?Last Taken ?Type amlodipine 10 mg tablet 10 mg PO DAILY 08/11/19 08/23/23 09/05/22 History clopidogrel 75 mg tablet 75 mg PO DAILY 08/11/19 08/23/23 09/05/22 History cyanocobalamin (vitamin B-12) 1,000 mcg PO DAILY 08/11/19 08/23/23 09/05/22 History 1,000 mcg tablet (Vitamin B-12) docusate sodium 100 mg capsule 100 mg PO BID #30 caps 08/11/19 08/23/23 09/05/22 Rx folic acid 1 mg tablet 1 mg PO DAILY 08/11/19 08/23/23 09/05/22 History losartan 50 mg tablet 50 mg PO DAILY 04/08/23/23 09/05/22 History Held on 09/08/22. Instructions: Resume on 09/22/22. methotrexate sodium 2.5 mg tablet See Rx Instructions .Route .COMPLEX 08/11/19 08/23/23 08/31/22 History Held on 09/08/22. Instructions: Resume on 09/22/22. simvastatin 5 mg tablet 5 mg PO QPM 08/11/19 08/23/23 09/05/22 History sulfasalazine 500 mg tablet 1,000 mg PO BID 08/11/19 08/23/23 09/05/22 History calcium carbonate 500 mg PO BID 09/06/22 08/23/23 09/05/22 History mupirocin 2 % topical ointment 1 applic topical BID 09/06/22 08/23/23 Unknown History pantoprazole 40 mg tablet,delayed 40 mg PO QAM #30 tabs 09/08/22 08/23/23 Unknown Rx release (Protonix) ondansetron 4 mg disintegrating 4 mg PO Q8H #20 tabs 08/23/23 08/23/23 Unknown Rx tablet prednisone 10 mg tablet See Taper PO DIRECTED #20 tabs 08/23/23 08/23/23 Unknown Rx Allergies Allergy/AdvReac Type Severity Reaction Status Date / Time hydrochlorothiazide Allergy Unknown Verified 08/23/23 12:29 PFSH Acute PFSH: Medical History (Updated 10/12/24 @ 16:11 by Hailee Sapp MD) Elevated lactic acid level CARLOS (acute kidney injury) COVID-19 virus infection Pancreatitis Crohn's disease Surgical History History of appendectomy Social History Smoking and tobacco/nicotine status: former use of tobacco/nicotine Vitals/I&O/Wt Last Vital Signs Temp 98.0 F 10/12/24 10:06 Pulse 106 H 10/12/24 10:06 Resp 16 10/12/24 10:06 BP 177/76 10/12/24 10:15 Pulse Ox 95 10/12/24 10:06 O2 Del Method Room Air 10/12/24 10:06 Weight last 48 hrs Weight 51.256 kg Physical Exam Const: COMMON NORMALS: no acute distress, average body habitus and patient oriented x3 HENMT: COMMON NORMALS: normocephalic, atraumatic and moist oral mucous membranes Eye: COMMON NORMALS: Equal, round and reactive pupils present, EOMs intact bilaterally and conjunctivae normal Neck/C-Spine: COMMON NORMALS: full ROM and supple Chest: COMMONS NORMALS: normal inspection of the chest Resp: COMMON NORMALS: normal respiratory effort and clear to auscultation bilaterally Cardio: COMMON NORMALS: no JVD, regular rate, regular rhythm, S1 normal heart sound present, S2 normal heart sound present and No murmurs present (Cardio) GI: COMMON NORMALS: Soft to palpation and no masses AUSCULTATION: Yes normoactive bowel sounds PALPATION: Yes Soft to palpation, Yes Tenderness to palpation present (GI) Details: RLQ (Tenderness in the right lower quadrant on deep palpation), No Guarding due to palpation present (GI) and No Rebound tenderness present : COMMON NORMALS: Yes no CVA tenderness Extremity: COMMON NORMALS: normal to inspection, full ROM and no pedal edema Neuro: ALVINO COMA SCALE: document GCS findings Alvino coma scale eye opening: Spontaneous [place]field coma scale verbal response: Orientated Alvino coma scale motor response: Obey commands Whitefield coma scale total score: 15 Psych: COMMON NORMALS: cooperative, normal affect and speech normal Skin: COMMON NORMALS: no rashes or lesions noted and no wounds Data 10/12/24 10:56 10/12/24 10:56 CT Abd/Pel: Radiologist's impression: Prominent enteritis involving the ileum causing small bowel obstruction. Findings were quite similar on 09/06/2022. Cholelithiasis. A&P Assessment and plan (1) Bowel obstruction: (2) Crohn's disease: (3) Hypertension: (4) Hyperlipidemia: (5) GERD (gastroesophageal reflux disease): Plan Small bowel obstruction ? Secondary to ileitis from Crohn's disease ? NG tube to LIS ? N.p.o., IV fluids ? Pain meds and antiemetics as needed ? Solu-Medrol 20 mg every 8 hours ? She was on methotrexate and sulfasalazine ? Neurosurgery is following Hypokalemia ? Will replete potassium; monitor Hypertension ? Blood pressure elevated in the ED and given IV labetalol ? Continue amlodipine and losartan Hyperlipidemia ? Simvastatin PDMP PDMP Reviewed: Not Reviewed Attestations Medical Necessity Statement*: Patient requires inpatient hospitalized for Crohn's ileitis with SBO. Hospitalization is expected to cross 2 midnights. Time Spent in Patient Care: Total time spent on admission equals 50 minutes. Coding Level of Care Code 82100 Diagnoses Bowel obstruction K56.609 Crohn's disease of large intestine with rectal bleeding K50.111 Digestive disease complication type: with rectal bleeding Gastrointestinal tract location: large intestine Hypertension I10 Hyperlipidemia E78.5 GERD (gastroesophageal reflux disease) K21.9
--- NOTE | 2024-10-12 16:45 | W.ED.ABDPA2 ---
HPI - Abdominal Pain General: Chief Complaint: Abdominal Pain Stated Complaint: abd pain Time Seen by Provider: 10/12/24 12:03 History of Present Illness: 89-year-old female presents emergency room complaining of constipation for the last 6 days she has a history of Crohn's disease she has not had any bloody diarrhea she was nauseous at times but has not had any vomiting. She states it does feel better at this time she denies any fever sweats or chills about a month ago she was admitted to the hospital for similar condition resolved with conservative therapy they had talked about having surgery evidently but she states she does not want to have surgery. She denies any fever sweats chills dysuria urgency or frequency. Associated Symptoms: Reports nausea; Denies chills, constipation, dysuria, fever(s) and vomiting Related Data Home Medications ?Medication ?Instructions ?Recorded ?Confirmed amlodipine 10 mg tablet 10 mg PO DAILY 08/11/19 08/23/23 clopidogrel 75 mg tablet 75 mg PO DAILY 08/11/19 08/23/23 cyanocobalamin (vitamin B-12) 1,000 mcg PO DAILY 08/11/19 08/23/23 1,000 mcg tablet (Vitamin B-12) folic acid 1 mg tablet 1 mg PO DAILY 08/11/19 08/23/23 losartan 50 mg tablet 50 mg PO DAILY 08/11/19 08/23/23 Held on 09/08/22. Instructions: Resume on 09/22/22. methotrexate sodium 2.5 mg tablet See Rx Instructions .Route .COMPLEX 08/11/19 08/23/23 Held on 09/08/22. Instructions: Resume on 09/22/22. simvastatin 5 mg tablet 5 mg PO QPM 08/11/19 08/23/23 sulfasalazine 500 mg tablet 1,000 mg PO BID 08/11/19 08/23/23 calcium carbonate 500 mg PO BID 09/06/22 08/23/23 mupirocin 2 % topical ointment 1 applic topical BID 09/06/22 08/23/23 Previous Rx's ?Medication ?Instructions ?Recorded docusate sodium 100 mg capsule 100 mg PO BID #30 caps 08/11/19 pantoprazole 40 mg tablet,delayed 40 mg PO QAM #30 tabs 09/08/22 release (Protonix) ondansetron 4 mg disintegrating 4 mg PO Q8H #20 tabs 08/23/23 tablet prednisone 10 mg tablet See Taper PO DIRECTED #20 tabs 08/23/23 Allergies Allergy/AdvReac Type Severity Reaction Status Date / Time hydrochlorothiazide Allergy Unknown Verified 08/23/23 12:29 Review of Systems Const: Denies: fever(s) or chills Card: Denies: chest pain Resp: Denies: dyspnea GI: Reports: abdominal pain and nausea; Denies: vomiting or constipation : Denies: dysuria, urinary frequency or urinary urgency Musc: Denies: neck pain or back pain Skin/Breast: Denies: rash PFSH ED PFSH: Medical History Elevated lactic acid level CARLOS (acute kidney injury) COVID-19 virus infection Pancreatitis Crohn's disease Surgical History History of appendectomy Social History Smoking and tobacco/nicotine status: former use of tobacco/nicotine Physical Exam Const: GENERAL APPEARANCE: cooperative ORIENTATION/CONSCIOUSNESS: Yes awake, Yes oriented to person, Yes oriented to place and Yes oriented to time HENMT: COMMON NORMALS: normocephalic, atraumatic and hearing grossly normal bilaterally HEAD & SCALP: normocephalic and atraumatic Resp: COMMON NORMALS: normal respiratory effort, No retractions, No use of accessory muscles and clear to auscultation bilaterally AUSCULTATION: clear to auscultation bilaterally Cardio: COMMON NORMALS: regular rate, regular rhythm and No murmurs present (Cardio) RATE: regular rate RHYTHM: regular rhythm GI: INSPECTION: Yes abdominal distension AUSCULTATION: Yes Hypoactive bowel sounds present PALPATION: Yes Tenderness to palpation present (GI) and No Guarding due to palpation present (GI) Extremity: COMMON NORMALS: normal to inspection, capillary refill normal, no clubbing, cyanosis or edema, no calf tenderness and no pedal edema Neuro: SENSORIUM/ORIENTATION: Yes oriented to person, Yes oriented to place and Yes oriented to time Skin: COMMON NORMALS: no rashes or lesions noted GENERAL SKIN EXAM: no rashes or lesions noted Course Vital Signs: Vital signs: Vital Signs Temperature 98.0 F 10/12/24 10:06 Pulse Rate 106 H 10/12/24 10:06 Respiratory Rate 16 10/12/24 10:06 Blood Pressure 177/76 10/12/24 10:15 Pulse Oximetry 95 10/12/24 10:06 Oxygen Delivery Me thod Room Air 10/12/24 10:06 MDM - Abdominal Pain Medical Decision Making CT shows small bowel obstruction. Given patient's history of Crohn's will need to be started on steroids and admitted. Consult to general surgery also discussed with hospitalist. Patient is hypertensive at this time. Dr. Sapp asked that we give labetalol. However unable to access the order section of the chart at this time nurse will override and give 10 mg of labetalol. Medical Records I reviewed the patient's medical records. Lab Data I reviewed the patient's lab results. 10/12/24 10:56 10/12/24 10:56 Labs/Radiology: Radiology Impressions Abdomen/Pelvis CT 10/12/24 12:30 IMPRESSION: 1. Prominent enteritis involving the ileum causing small bowel obstruction. The findings were quite similar on 09/06/2022. 2. Cholelithiasis Laboratory Results WBC 9.88 10^3/uL (3.29-11.43) 10/12/24 10:56 RBC 3.69 10^6/uL (3.85-5.65) L 10/12/24 10:56 Hgb 11.90 g/dL (11.27-16.99) 10/12/24 10:56 Hct 38.0 % (36-47) 10/12/24 10:56 MCV 103.0 fl (85-98) H 10/12/24 10:56 MCH 32.2 pg (27-33) 10/12/24 10:56 MCHC 31.3 g/dL (30-55) 10/12/24 10:56 RDW 15.1 % (12.1-15.1) 10/12/24 10:56 Plt Count 275 10^3/cmm (157-399) 10/12/24 10:56 MPV 8.9 fL (7.4-10.4) 10/12/24 10:56 Neut % (Auto) 85.4 % 10/12/24 10:56 Lymph % (Auto) 7.5 % 10/12/24 10:56 [place] % (Auto) 4.4 % 10/12/24 10:56 Eos % (Auto) 1.2 % 10/12/24 10:56 Baso % (Auto) 0.3 % 10/12/24 10:56 Neut # (Auto) 8.44 10^3/uL (1.8-7.7) H 10/12/24 10:56 Lymph # (Auto) 0.7 10^3/uL (0.8-4.8) L 10/12/24 10:56 [place] # (Auto) 0.4 10^3/uL (0.2-0.9) 10/12/24 10:56 Eos # (Auto) 0.1 10^3/uL (0.0-0.8) 10/12/24 10:56 Baso # (Auto) 0.0 10^3/uL (0.0-0.1) 10/12/24 10:56 Nucleated RBC % (auto) 0 % 10/12/24 10:56 Nucleated RBCs # 0.0 /100WBC 10/12/24 10:56 Sodium 141 mmol/L (136-145) 10/12/24 10:56 Potassium 3.2 mmol/L (3.5-5.1) L 10/12/24 10:56 Chloride 103 mmol/L (98-107) 10/12/24 10:56 Carbon Dioxide 22 mmol/L (22-29) 10/12/24 10:56 Anion Gap 19.2 (5-19) H 10/12/24 10:56 BUN 14 mg/dL (8-23) 10/12/24 10:56 Creatinine 0.8 mg/dL (0.5-0.9) 10/12/24 10:56 GFR Calculation Not Reportable 10/12/24 10:56 Glucose 102 mg/dL (65-115) 10/12/24 10:56 Calculated Osmolality 293 mOsm/kg (285-295) 10/12/24 10:56 Lactic Acid 2.1 mmol/L (0.5-2.2) 10/12/24 10:56 Lactic Acid (Sepsis) 1.0 mmol/L (0.5-2.2) 10/12/24 13:59 Calcium 9.2 mg/dL (8.5-10.5) 10/12/24 10:56 Total Bilirubin 0.4 mg/dL (0.15-1.2) 10/12/24 10:56 AST 16 U/L (0-32) 10/12/24 10:56 ALT 8 U/L (0-33) 10/12/24 10:56 Alkaline Phosphatase 53 U/L (35-105) 10/12/24 10:56 Total Protein 6.5 g/dL (6.6-8.7) L 10/12/24 10:56 Albumin 4.0 g/dL (3.5-5.2) 10/12/24 10:56 Globulin 2.5 g/dL (1.3-4.6) 10/12/24 10:56 Lipase 29 U/L (13-60) 10/12/24 10:56 Urine Color Yellow (Yellow) 10/12/24 13:40 Urine Appearance Clear (CLEAR) 10/12/24 13:40 Urine pH 6.0 (5-7) 10/12/24 13:40 Ur Specific Gregory 1.053 (1.005-1.030) H 10/12/24 13:40 Urine Protein Negative (Negative) 10/12/24 13:40 Urine Glucose (UA) Negative (Normal) 10/12/24 13:40 Urine Ketones Negative (Negative) 10/12/24 13:40 Urine Blood Negative (Negative) 10/12/24 13:40 Urine Nitrate Negative (Negative) 10/12/24 13:40 Urine Bilirubin Negative (Negative) 10/12/24 13:40 Urine Urobilinogen 1.0 mg/dL (Negative) 10/12/24 13:40 Ur Leukocyte Esterase Negative (Negative) 10/12/24 13:40 Urine RBC 0-2 /hpf (0-2) 10/12/24 13:40 Urine WBC 0-5 /hpf (0-5) 10/12/24 13:40 Ur Squamous Epith Cells 0-5 /hpf (0-5) 10/12/24 13:40 Amorphous Sediment Not Reportable 10/12/24 13:40 Urine Bacteria None seen /hpf (NONE) 10/12/24 13:40 Hyaline Casts 0-4 /lpf H 10/12/24 13:40 All radiology interpretation(s) finalized by discharge Discharge Plan Discharge Patient Disposition: Admitted As Inpatient Admit Provider: Hailee Sapp Clinical Impression: Bowel obstruction, Crohn's disease, Hypertension Condition: Stable Coding Level of Care Code ED Production Control Clerk for Familia Mcdonald
[2024-10-12] MEDS: potassium chloride premix 100 ML 25 MEQ IV (17:33)
--- NOTE | 2024-10-12 18:02 | XRR_ITS ---
PROCEDURE INFORMATION: Exam: XR Chest Exam date and time: 10/12/2024 6:01 PM Age: 89 years old Clinical indication: Device placement; Ng tube TECHNIQUE: Imaging protocol: Radiologic exam of the chest. Views: 1 view. COMPARISON: CR XR chest 1V portable [id number] 09/06/2022 7:52 AM FINDINGS: Tubes, catheters and devices: A nasogastric tube is in place with the distal tip overlying the stomach, in radiographically appropriate position. Lungs: Lung bases are clear. Pleural spaces: No pleural effusion. The apices are not included. Heart/Mediastinum: Heart size is within normal limits. Bones/joints: No acute osseous abnormalities are seen. XR/XR chest 1V portable [id number] IMPRESSION: Nasogastric tube in radiographically appropriate position.
[2024-10-12] MEDS: labetalol 5 mg/mL SDV 20mL 20 MG IVP (19:23)
[2024-10-12] MEDS: phenol oral Spray 177 mL 3 SPRAY MUCOUS MEM (22:03)
[2024-10-12] MEDS: D5-NS 0.45% + KCL 20 mEq 20 MEQ/1,000 ML BAG 100 MEQ IV (22:04)
[2024-10-12] MEDS: enoxaparin 40 mg/0.4 mL Syringe SUBCUT (22:04)
[2024-10-12] MEDS: methylPREDNISolone sod succ 40 mg/mL INJ 20 MG IV (22:04)
[2024-10-12] MEDS: morphine 4 mg/mL SDV 1 mL 2 MG IVP (22:42)
[2024-10-12] MEDS: ondansetron 2 mg/ML SDV 2 mL 4 MG IVP (22:43)
[2024-10-13] VITALS (7 sets, daily range): BP systolic 174–193; BP diastolic 61–73; PULSE 65–76; RESP 14–17; TEMP 36.5–37; O2SAT 90–94
[2024-10-13 04:03] LABS: Basophils % 0.1 %; Hematocrit 33.6 % (36-47); Lymphocytes # 0.5 10^3/uL (0.8-4.8); Lymphocytes % 6.7 %; Mean Corpuscular Hemoglobin 31.9 pg (27-33); Mean Corpuscular Volume 103.1 fl (85-98); Mean Platelet Volume 9.4 fL (7.4-10.4); Monocytes # 0.3 10^3/uL (0.2-0.9); Monocytes % 3.5 %; Neutrophils # 6.35 10^3/uL (1.8-7.7); Neutrophils % 88.2 %; Nucleated Red Blood Cells % 0 %; Platelet Count 238 10^3/cmm (157-399); Red Blood Count 3.26 10^6/uL (3.85-5.65); Red Cell Distribution Width 15.1 % (12.1-15.1)
[2024-10-13 04:14] LABS: Anion Gap 14.1 (5-19); Blood Urea Nitrogen 11 mg/dL (8-23); Calcium 8.1 mg/dL (8.5-10.5); Carbon Dioxide 22 mmol/L (22-29); Chloride 109 mmol/L (98-107); Creatinine Clr Calc Pharmacy 37.7554; Glucose 126 mg/dL (65-115); Osmolality Calculated 293 mOsm/kg (285-295); Potassium 4.1 mmol/L (3.5-5.1); Sodium 141 mmol/L (136-145)
[2024-10-13] MEDS: methylPREDNISolone sod succ 40 mg/mL INJ 20 MG IV ×3 (04:59→21:34)
--- NOTE | 2024-10-13 05:11 | P.PN_ITS ---
Subjective 2 Subjective: Patient reports that she has been passing gas. She is wanting to go home, but understands she needs to stay another day. Medications: Reviewed: Yes Vitals/I&O/Wt Last Vital Signs Temp 98.6 F 10/13/24 01:28 Pulse 66 10/13/24 01:28 Resp 17 10/13/24 01:28 BP 174/61 10/13/24 01:28 Pulse Ox 94 10/13/24 01:28 O2 Del Method Room Air 10/12/24 23:11 10/12/24 10/12/24 10/13/24 14:59 22:59 06:59 Intake Total 600 / 600 Balance 600 / 600 Weight last 48 hrs Weight 105 lb 8 oz Weight 113 lb Physical Exam 2 Narrative: General: Cooperative patient in no apparent distress. Well developed. HEENT: Normocephalic, Atraumatic. External ears normal. Nasal passages patent without drainage. MMM. NG tube is in place. Heart: RRR. Resp: LCTA. No respiratory distress, no use of accessory muscles. Abd: Soft, non-tender. Non-distended. Extremities: No edema. Skin: No rash or lesions on exposed areas. Data 10/13/24 03:05 10/13/24 03:05 A&P Assessment and plan (1) Bowel obstruction: (2) Crohn's disease: (3) Hypertension: (4) Hyperlipidemia: (5) GERD (gastroesophageal reflux disease): Plan 89-year-old female admitted for small bowel obstruction secondary to ileitis from Crohn's disease. Continue close inpatient monitoring. General surgery has evaluated. She has a NG tube in place. Currently NPO. Planning for Gastrografin studies tomorrow. Continue Solu-Medrol. Will continue to check electrolytes and replete as indicated. Blood pressure has been a little elevated. Restarted home medications. Will add labetalol to achieve better control. Continue other medications for chronic illnesses. Code Status: Full IVF: D51/2NS DVT PPx: Lovenox GI PPx: Protonix ABx: None Diet: NPO Discharge plan: Home when stable. PDMP PDMP Reviewed: Not Reviewed Attestations 2 Medical Necessity Statement*: Patient requires inpatient hospitalized for Crohn's ileitis with SBO. Hospitalization is expected to cross 2 midnights. Coding Level of Care Code Acute Code for Chg Fwd Diagnoses Bowel obstruction K56.609 Crohn's disease of large intestine with rectal bleeding K50.111 Digestive disease complication type: with rectal bleeding Gastrointestinal tract location: large intestine Hypertension I10 Hyperlipidemia E78.5 GERD (gastroesophageal reflux disease) K21.9
--- NOTE | 2024-10-13 08:03 | P.PN_ITS ---
Subjective 2 Subjective: Hospital day 1 after admission for SBO due to terminal ileitis associated with Crohn's. Patient is doing much better abdominal pain has improved NG tube has put out about 100 cc of clear bilious fluid. She passed gas and had a small bowel movement. Vitals/I&O/Wt Last Vital Signs Temp 97.8 F 10/13/24 07:22 Pulse 68 10/13/24 07:22 Resp 17 10/13/24 07:22 BP 189/72 10/13/24 07:22 Pulse Ox 94 10/13/24 07:22 O2 Del Method Room Air 10/13/24 07:22 10/12/24 10/13/24 10/13/24 22:59 06:59 14:59 Intake Total 600 / 600 Output Total 350 / 350 Balance 600 / 600 -350 / 250 Weight last 48 hrs Weight 105 lb Weight 105 lb 8 oz Weight 113 lb Physical Exam 2 GI: OTHER: Abdominal examination is improved from yesterday abdomen is soft minimally tender there is improved bowel sounds. Data 10/13/24 03:05 10/13/24 03:05 A&P Assessment and plan (1) Crohn's disease: (2) Bowel obstruction: Plan Patient showing adequate clinical improvement with medical management. I would like to continue another 24 hours of IV steroids before proceeding with a Gastrografin trial and removal of the NG tube. In the interim patient can ambulate as much as possible today the tube can be clamped for her to ambulate and be placed back to suction when she goes back to bed. At this point there is low likelihood of needing surgical interventions patient appears to be improving significantly with clinical management. General surgery will continue to follow PDMP PDMP Reviewed: Not Reviewed Attestations 2 Medical Necessity Statement*: Per medical team Coding Level of Care Code Acute Code for Chg Fwd Diagnoses Crohn's disease of large intestine with rectal bleeding K50.111 Digestive disease complication type: with rectal bleeding Gastrointestinal tract location: large intestine Bowel obstruction K56.609
[2024-10-13] MEDS: amlodipine 10 mg Tablet PO (09:48)
[2024-10-13] MEDS: D5-NS 0.45% + KCL 20 mEq 20 MEQ/1,000 ML BAG 100 MEQ IV ×2 (09:48→21:33)
[2024-10-13] MEDS: losartan 50 mg Tablet PO (09:48)
[2024-10-13] MEDS: folic acid 1 mg Tablet PO (09:48)
[2024-10-13] MEDS: pantoprazole 40 mg SDV IVP (09:48)
[2024-10-13] MEDS: labetalol 5 mg/mL SDV 20mL 20 MG IVP (18:11)
[2024-10-13] MEDS: enoxaparin 40 mg/0.4 mL Syringe SUBCUT (21:28)
[2024-10-13] MEDS: ATORVASTATIN 10 MG TABLET 5 MG PO (21:32)
[2024-10-14 00:51] VITALS: BP 187/71; PULSE 64; RESP 14; TEMP 36.7; O2SAT 96
[2024-10-14] MEDS: D5-NS 0.45% + KCL 20 mEq 20 MEQ/1,000 ML BAG 100 MEQ IV (05:11)
[2024-10-14] MEDS: methylPREDNISolone sod succ 40 mg/mL INJ 20 MG IV ×2 (05:11→11:42)
[2024-10-14 05:46] VITALS: BP 200/91; PULSE 79; RESP 15; TEMP 36.7; O2SAT 93
[2024-10-14 06:08] LABS: Anion Gap 15.5 (5-19); Blood Urea Nitrogen 7 mg/dL (8-23); Calcium 8.5 mg/dL (8.5-10.5); Carbon Dioxide 23 mmol/L (22-29); Chloride 107 mmol/L (98-107); Creatinine Clr Calc Pharmacy 37.6857; Glucose 131 mg/dL (65-115); Osmolality Calculated 292 mOsm/kg (285-295); Potassium 4.5 mmol/L (3.5-5.1); Sodium 141 mmol/L (136-145)
--- NOTE | 2024-10-14 06:54 | PC.NURSE ---
notified doctor about BP pressure she said to give amlodapine thats scheduled for 9 am now as well as 50mg of hydralizin po
[2024-10-14] MEDS: hyDRALAzine 50 mg Tablet PO (07:02)
[2024-10-14] MEDS: amlodipine 10 mg Tablet PO (07:03)
[2024-10-14 08:00] VITALS: BP 190/67; PULSE 73; RESP 16; TEMP 36.8; O2SAT 95
[2024-10-14 08:25] VITALS: BP 190/67
[2024-10-14] MEDS: pantoprazole DR 40 mg Tablet PO (08:25)
[2024-10-14] MEDS: folic acid 1 mg Tablet PO (08:25)
[2024-10-14] MEDS: losartan 50 mg Tablet PO (08:25)
--- NOTE | 2024-10-14 09:11 | P.PN_ITS ---
Subjective 2 Subjective: Patient doing well abdominal pain has subsided had a bowel movements this morning is passing gas. Vitals/I&O/Wt Last Vital Signs Temp 98.3 F 10/14/24 08:00 Pulse 73 10/14/24 08:00 Resp 16 10/14/24 08:00 BP 190/67 10/14/24 08:25 Pulse Ox 95 10/14/24 08:00 O2 Del Method Room Air 10/14/24 08:00 10/13/24 10/14/24 10/14/24 22:59 06:59 14:59 Intake Total 999 1113.333 / 3113.333 Balance 999 1113.333 / 3113.333 Weight last 48 hrs Weight 105 lb Weight 105 lb Weight 105 lb 8 oz Weight 113 lb Physical Exam 2 GI: OTHER: Abdomen soft nontender nondistended with good bowel sounds Data 10/13/24 03:05 10/14/24 05:45 A&P Assessment and plan (1) Crohn's disease: (2) Bowel obstruction: Plan Patient clinically improving, we discussed possibility of advancement of diet versus Gastrografin trial before advancement of diet after discussion of all the possible outcomes patient has decided on proceeding with a Gastrografin trial before advancing diet. We administer 100 cc of Gastrografin diluted in 50 cc of water we will get x-rays at 2 PM 8 PM and tomorrow morning. In the case of a bowel movement after Gastrografin ministration we will obtain immediate x-ray of the abdomen and if passage of the contrast is noted to the colon we will start clear liquid diet. PDMP PDMP Reviewed: Not Reviewed Attestations 2 Medical Necessity Statement*: Per medical team Coding Level of Care Code Acute Code for Chg Fwd Diagnoses Crohn's disease of large intestine with rectal bleeding K50.111 Digestive disease complication type: with rectal bleeding Gastrointestinal tract location: large intestine Bowel obstruction K56.609
--- NOTE | 2024-10-14 10:29 | XRR_ITS ---
PROCEDURE INFORMATION: Exam: XR Abdomen Exam date and time: 10/14/2024 10:55 AM Age: 89 years old Clinical indication: Other: Post bm post gastrographin TECHNIQUE: Imaging protocol: Radiologic exam of the abdomen. Views: Frontal supine view of the abdomen. 1 View. COMPARISON: CT abdomen pelvis w con* [id number] 10/12/2024 12:51 PM FINDINGS: Tubes, catheters and devices: The feeding tube is in good position within the stomach. Gastrointestinal tract: Gastrografin is noted throughout the small bowel as well as the entire colon. Minimal small bowel distension noted. Bones/joints: Unremarkable. XR/XR abdomen 1V* [id number] IMPRESSION: No evidence of small bowel obstruction
[2024-10-14 11:20] VITALS: BP 158/67; PULSE 85; RESP 16; TEMP 36.9; O2SAT 93
[2024-10-14] MEDS: carvedilol 6.25 mg Tablet PO (11:40)
[2024-10-14] MEDS: hyDRALAzine 20 mg/mL INJ 1 mL 10 MG IVP (11:41)
--- NOTE | 2024-10-14 13:16 | PM.MISC ---
Miscellaneous Note Purpose of Documentation: Update on patient care Note: A surfing trial was done and was successful. No evidence of a small bowel obstruction Gastrografin reached the colon. NG tube removed patient will be started on clear liquid diet, can be advanced to the GI soft as tolerated. t the patient is cleared for discharge home from the surgical standpoint once she is tolerating diet. She will need to follow-up with gastroenterology.
--- NOTE | 2024-10-14 13:51 | PC.NURSE ---
pts ng tube removed, per dr cruz's order. pt tolerated well, tube intact
[2024-10-14 15:42] VITALS: BP 182/77; PULSE 81; RESP 17; TEMP 36.8; O2SAT 97
--- NOTE | 2024-10-14 17:13 | P.DS_ITS ---
Discharge Providers Date of Admission: 10/12/24 16:37 Date of Discharge: October 14, 2024 Attending Provider at Admission: Hailee Sapp MD Attending Provider at Discharge: Hailee Sapp MD Primary Care Provider: ALEXI Awan Diagnoses at Discharge Discharge Diagnosis (1) Crohn's disease: Status: Acute Qualifiers: Digestive disease complication type: with rectal bleeding Gastrointestinal tract location: large intestine Qualified Code(s): K50.111 - Crohn's disease of large intestine with rectal bleeding (2) Bowel obstruction: Status: Acute Reason for Visit Reason for Visit: abd pain Brief History: 89-year-old female with a history of [employer] hn's disease, hypertension, and GERD presented with abdominal cramping. She had not had a bowel movement for a few days. States that prior to coming to the ED she had passed some liquid stool, but continued to have bloating and pain. In the ER a CT abdomen pelvis showed ileitis with likely small bowel obstruction. General surgery was consulted in the ER and she was admitted. Hospital Course Hospital Course NG tube was placed and she was started on steroids.Surgery had arranged for her to have a Gastrografin trial prior to removing the NG tube. She was able to get up and ambulate through the halls prior to this study. During her stay, she was noted to have some blood pressure elevations. She was given some IV medications and her home medication regimen was adjusted. Her blood pressure did improve some, but again began to elevate prior to discharge. She was requesting to go home. Gastrografin trial did show resolution of the SBO, and the NG tube was removed. She was discharged with instructions and new prescriptions for her home antihypertensive medications, and she was instructed to follow-up with her primary care provider early in the week. Physical Exam Narrative: General: Cooperative patient in no apparent distress. Well developed. HEENT: Normocephalic, Atraumatic. External ears normal. Nasal passages patent without drainage. MMM. NG tube is in place. Heart: RRR. Resp: LCTA. No respiratory distress, no use of accessory muscles. Abd: Soft, non-tender. Non-distended. Extremities: No edema. Skin: No rash or lesions on exposed areas. Discharge Data Studies Completed and Pending Completed Studies During Hospitalization Category Date Time Status CT abdomen pelvis w con* [id number] Stat Cat Scan 10/12/24 12:30 Completed XR abdomen 1V* [id number] Routine Exams 10/14/24 10:29 Completed XR chest 1V portable [id number] Stat Exams 10/12/24 18:02 Completed Pending at discharge Category Date Time Status Basic Metabolic Panel AM LABS Lab 10/15/24 04:00 Ordered Radiology Impressions Abdomen/Pelvis CT 10/12/24 12:30 IMPRESSION: 1. Prominent enteritis involving the ileum causing small bowel obstruction. The findings were quite similar on 09/06/2022. 2. Cholelithiasis Chest X-Ray 10/12/24 18:02 IMPRESSION: Nasogastric tube in radiographically appropriate position. Abdomen X-Ray 10/14/24 10:29 IMPRESSION: No evidence of small bowel obstruction Laboratory Results WBC 7.20 10^3/uL (3.29-11.43) 10/13/24 03:05 RBC 3.26 10^6/uL (3.85-5.65) L 10/13/24 03:05 Hgb 10.40 g/dL (11.27-16.99) L 10/13/24 03:05 Hct 33.6 % (36-47) L 10/13/24 03:05 MCV 103.1 fl (85-98) H 10/13/24 03:05 MCH 31.9 pg (27-33) 10/13/24 03:05 MCHC 31.0 g/dL (30-55) 10/13/24 03:05 RDW 15.1 % (12.1-15.1) 10/13/24 03:05 Plt Count 238 10^3/cmm (157-399) 10/13/24 03:05 MPV 9.4 fL (7.4-10.4) 10/13/24 03:05 Neut % (Auto) 88.2 % 10/13/24 03:05 Lymph % (Auto) 6.7 % 10/13/24 03:05 [place] % (Auto) 3.5 % 10/13/24 03:05 Eos % (Auto) 0.0 % 10/13/24 03:05 Baso % (Auto) 0.1 % 10/13/24 03:05 Neut # (Auto) 6.35 10^3/uL (1.8-7.7) 10/13/24 03:05 Lymph # (Auto) 0.5 10^3/uL (0.8-4.8) L 10/13/24 03:05 [place] # (Auto) 0.3 10^3/uL (0.2-0.9) 10/13/24 03:05 Eos # (Auto) 0.0 10^3/uL (0.0-0.8) 10/13/24 03:05 Baso # (Auto) 0.0 10^3/uL (0.0-0.1) 10/13/24 03:05 Nucleated RBC % (auto) 0 % 10/13/24 03:05 Nucleated RBCs # 0.0 /100WBC 10/13/24 03:05 Sodium 141 mmol/L (136-145) 10/14/24 05:45 Potassium 4.5 mmol/L (3.5-5.1) 10/14/24 05:45 Chloride 107 mmol/L (98-107) 10/14/24 05:45 Carbon Dioxide 23 mmol/L (22-29) 10/14/24 05:45 Anion Gap 15.5 (5-19) 10/14/24 05:45 BUN 7 mg/dL (8-23) L 10/14/24 05:45 Creatinine 0.6 mg/dL (0.5-0.9) 10/14/24 05:45 GFR Calculation Not Reportable 10/14/24 05:45 Glucose 131 mg/dL (65-115) H 10/14/24 05:45 Calculated Osmolality 292 mOsm/kg (285-295) 10/14/24 05:45 Lactic Acid 2.1 mmol/L (0.5-2.2) 10/12/24 10:56 Lactic Acid (Sepsis) 1.0 mmol/L (0.5-2.2) 10/12/24 13:59 Calcium 8.5 mg/dL (8.5-10.5) 10/14/24 05:45 Total Bilirubin 0.4 mg/dL (0.15-1.2) 10/12/24 10:56 AST 16 U/L (0-32) 10/12/24 10:56 ALT 8 U/L (0-33) 10/12/24 10:56 Alkaline Phosphatase 53 U/L (35-105) 10/12/24 10:56 Total Protein 6.5 g/dL (6.6-8.7) L 10/12/24 10:56 Albumin 4.0 g/dL (3.5-5.2) 10/12/24 10:56 Globulin 2.5 g/dL (1.3-4.6) 10/12/24 10:56 Lipase 29 U/L (13-60) 10/12/24 10:56 Urine Color Yellow (Yellow) 10/12/24 13:40 Urine Appearance Clear (CLEAR) 10/12/24 13:40 Urine pH 6.0 (5-7) 10/12/24 13:40 Ur Specific [place] 1.053 (1.005-1.030) H 10/12/24 13:40 Urine Protein Negative (Negative) 10/12/24 13:40 Urine Glucose (UA) Negative (Normal) 10/12/24 13:40 Urine Ketones Negative (Negative) 10/12/24 13:40 Urine Blood Negative (Negative) 10/12/24 13:40 Urine Nitrate Negative (Negative) 10/12/24 13:40 Urine Bilirubin Negative (Negative) 10/12/24 13:40 Urine Urobilinogen 1.0 mg/dL (Negative) 10/12/24 13:40 Ur Leukocyte Esterase Negative (Negative) 10/12/24 13:40 Urine RBC 0-2 /hpf (0-2) 10/12/24 13:40 Urine WBC 0-5 /hpf (0-5) 10/12/24 13:40 Ur Squamous Epith Cells 0-5 /hpf (0-5) 10/12/24 13:40 Amorphous Sediment Not Reportable 10/12/24 13:40 Urine Bacteria None seen /hpf (NONE) 10/12/24 13:40 Hyaline Casts 0-4 /lpf H 10/12/24 13:40 Vitals Last Vital Signs Temp 98.3 F 10/14/24 15:42 Pulse 81 10/14/24 15:42 Resp 17 10/14/24 15:42 BP 182/77 10/14/24 15:42 Pulse Ox 97 10/14/24 15:42 O2 Del Method Room Air 10/14/24 15:42 Discharge Plan Discharge Patient Disposition: Home Condition: Stable Prescriptions: New losartan 50 mg Tablet 100 mg PO DAILY Qty: 30 0RF Continued sulfasalazine 500 mg Tablet 1,000 mg PO BID cyanocobalamin (vitamin B-12) [Vitamin B-12] 1,000 mcg Tablet 1,000 mcg PO DAILY clopidogrel 75 mg Tablet 75 mg PO DAILY methotrexate sodium 2.5 mg Tablet See Rx Instructions .ROUTE .COMPLEX Rx Instructions: TAKE SIX 2.5MG TABLETS EVERY WEEK ON Tuesday TOTAL DOSE IS 15MG WEEKLY amlodipine 10 mg Tablet 10 mg PO DAILY simvastatin 5 mg Tablet 5 mg PO QPM folic acid 1 mg Tablet 1 mg PO DAILY docusate sodium 100 mg Capsule 100 mg PO BID Qty: 30 0RF mupirocin 2 % ointment 1 applic TOPICAL BID calcium carbonate 500 mg calcium (1,250 mg) Tablet 500 mg PO BID pantoprazole [Protonix] 40 mg tablet,delayed release (DR/EC) 40 mg PO QAM Qty: 30 0RF Discontinued losartan 50 mg Tablet 50 mg PO DAILY Discharge Orders: Discharge Order (Routine); Ordered 10/14/24 Ordered By: Steven Campbell Referrals: Aries,BRANDON PonceP [Primary Care Provider, Nurse Practitioner] Discharge Diet: Advance as tolerated Discharge Activity: Resume usual activity Patient Instructions: Losartan (By mouth), Bowel Obstruction (DC), Bowel Obstruction (GEN), Opioid Safety Discharge Attestations Time Spent in Discharge Care*: greater than 30 min Status at Discharge: Cognitive status at discharge: cognitively intact , Behavioral status at discharge: cooperative , Quality Metrics Clinical Quality Measures [ No reported AMI, CVA or VTE this stay] Coding Level of Care Code Acute Code for Chg Fwd Total time (in minutes) for Discharge: 32 Diagnoses Crohn's disease of large intestine with rectal bleeding K50.111 Digestive disease complication type: with rectal bleeding Gastrointestinal tract location: large intestine Bowel obstruction K56.609
== END 2024-10-14 15:55 | disposition home or self-care (01) | DRG 387 ==
LOC: ER 15:26 → ER IP 16:38 → MEDSURG 18:48
PROVIDERS: Physician Assistant; Admitting Provider Student in an Organized Health Care Education/Training Program; Emergency Provider Family Medicine; PCP Nurse Practitioner Family; Visit Provider Student in an Organized Health Care Education/Training Program
DX: K50.812 Crohn's disease of both small and large intestine with intestinal obstruction (principal); I10 Essential (primary) hypertension; K21.9 Gastro-esophageal reflux disease without esophagitis; R00.0 Tachycardia, unspecified; K80.20 Calculus of gallbladder without cholecystitis without obstruction; E87.6 Hypokalemia; E78.5 Hyperlipidemia, unspecified; Z79.02 Long term (current) use of antithrombotics/antiplatelets; Z87.891 Personal history of nicotine dependence; Z86.16 Personal history of COVID-19
CPT/HCPCS: 36415; 71045; 74018; 74177; 80048; 80053; 81001; 83605; 83690; 85025; 96365; 96366; 96372; 96375; 96376; 99285; J0360; J1650; J2270; J2405; J2470; J2919; J3480; J3490; J7040; J9999; Q9963